=== PATIENT | female | born 1945 | race Caucasian/White ===

== ENCOUNTER 2019-02-05 23:20 | Emergency (ER) | payer OTHER, MEDICARE ==
[2019-02-06] MEDS ORDERED: HYDROCODONE/APAP 5/325 MG TAB ONE (00:10)
[2019-02-06] MEDS ORDERED: TETANUS & DIPHTHERIA TOX,ADULT 0.5 ML VIAL ONE (00:10)
--- NOTE | 2019-02-06 01:26 | ER ---
Nurse's Notes [facility] Name: Bhavani Dupont Age: 73 yrs Sex: Female : 1945 Arrival Date: 02/05/2019 Time: 23:24 Bed 20 Private MD: Diagnosis: Contusion of other part of head-left forehead;Contusion of left knee;Contusion of left lower leg-bautista;Abrasion of unspecified part of head;Abrasion of left hand;Abrasion of right hand Presentation: 02/05 23:30 Presenting complaint: Patient states: "was walking out of [employer] when I tripped cc3 on a curb and hit my head, both shins, and both hands." Noted patient to have abrasions to her left side of the forehead, right lower leg and abrasions to both hands. Patient complains of headache, neck pain, right leg and right knee pain. Care prior to arrival: None. Mechanism of Injury: Fall the curb. Trauma event details: Injury occurred in the [facility], Injury occurred: outside [employer] Injury occurred: February 05, 2019. 23:30 Acuity: IGOR 3 cc3 23:30 Method Of Arrival: Wheelchair cc3 23:30 Transition of care: patient was not received from another setting of care. Onset of cc3 symptoms was February 05, 2019. Risk Assessment: Do you want to hurt yourself or someone else? Patient reports no desire to harm self or others. Initial Sepsis Screen: Does the patient meet any 2 criteria? No. Patient's initial sepsis screen is negative. Does the patient have a suspected source of infection? No. Patient's initial sepsis screen is negative. Triage Assessment: 23:30 General: Appears in no apparent distress. uncomfortable, Behavior is calm, cooperative, cc3 appropriate for age. 23:30 Pain: Complains of pain in forehead, right leg. EENT: Ear canal clear on bilaterally cc3 Sclera/Cornea are clear in bilaterally Nares are clear Oral mucosa is moist. Throat is clear bilaterally with gag reflex present. Neuro: Level of Consciousness is awake, alert, obeys commands, Oriented to person, place, time, situation, Appropriate for age. Cardiovascular: Patient's skin is warm and dry. Respiratory: Airway is patent Respiratory effort is even, unlabored, Respiratory pattern is regular, symmetrical. GI: Abdomen is round non-distended. : No signs and/or symptoms were reported regarding the genitourinary system. Derm: abrasion and bruise to right bautista, abrasion to left side of forehead, and abrasion to both hands. Musculoskeletal: Circulation, motion, and sensation intact. Range of motion: intact in all extremities. Trauma Activation: Physician: ED Physician; Name: ; Notified At: ; Arrived At: Physician: General Surgeon; Name: ; Notified At: ; Arrived At: Physician: Radiology; Name: ; Notified At: ; Arrived At: Physician: Respiratory; Name: ; Notified At: ; Arrived At: Physician: Lab; Name: ; Notified At: ; Arrived At: 23:30 was not activated cc3 Historical: - Allergies: 23:30 Latex, Natural Rubber; cc3 23:30 Lidocaine; cc3 23:30 TETRACYCLINES; cc3 23:30 all fish; cc3 - PMHx: 23:30 Asthma; cc3 - PSHx: 23:30 left knee replacement; Tubal ligation; cc3 - Immunization history: Last tetanus immunization: unknown. - Social history:: Smoking status: Patient/guardian denies using tobacco, never smoked. - Ebola Screening: : No symptoms or risks identified at this time. - Social history: Denies using tobacco products. Screenin:30 Abuse screen: Denies threats or abuse. Denies injuries from another. Nutritional cc3 screening: No deficits noted. Tuberculosis screening: No symptoms or risk factors identified. Fall Risk Ambulatory Aid- None/Bed Rest/Nurse Assist (0 pts). Gait- Normal/Bed Rest/Wheelchair (0 pts) Mental Status- Oriented to own ability (0 pts). Primary Survey: 23:30 NO uncontrolled hemorrhage observed. A: The patient is alert. Airway: patent, No cc3 supplemental oxygen in use on arrival. Oral cavity: clear, gag reflex present, Trachea midline. Breathing/Chest: Respiratory pattern: regular, Respiratory effort: spontaneous, unlabored, Breath sounds: clear, Chest inspection: symmetrical rise and fall of the chest. Circulation: Heart tones present. Disability Alert. Exposure/Environment: All clothing and personal items were removed. Forensic evidence collection is not deemed to be indicated at this time. Items placed in patient belonging bag. There is no evidence of uncontrolled external bleeding. Obvious injury(ies) are noted at this time: abrasion to forehead, right lower leg, and both hands A warming method has been applied: A warm blanket has been provided to the patient. 02/06 00:00 Reassessment Airway Airway Patent Breathing/Chest Respiratory pattern Regular cc3 Respiratory effort Spontaneous Unlabored Breath sounds Clear Chest inspection Symmetrical Circulation Heart tones Present Disability Alert. Secondary Survey: 02/05 23:30 HEENT: Head Other abrasion to forehead Face Other abrasion to forehead Eyes: No injury cc3 or deformity noted. to bilateral eyes. Ears: clear bilaterally. Nose: clear to bilateral nares. Gastrointestinal: Abdomen is soft, flat. : No signs and/or symptoms were reported regarding the genitourinary system. Musculoskeletal: Circulation, motion, and sensation intact. Range of motion: intact in all extremities. Injury Description: fall and sustained injury to forehead, right lower leg and both hands. Assessment: 23:30 General: see triage assessment. cc3 02/06 00:29 Reassessment: Patient appears in no apparent distress at this time. Patient and/or cc3 family updated on plan of care and expected duration. Pain level reassessed. Patient is alert, oriented x 3, equal unlabored respirations, skin warm/dry/pink. Patient came back from CT scan department, awaiting result. 01:20 Reassessment: Patient appears in no apparent distress at this time. Patient and/or cc3 family updated on plan of care and expected duration. Pain level reassessed. Patient is alert, oriented x 3, equal unlabored respirations, skin warm/dry/pink. Noticed bruising now which is darnell in color and swelling around the patient's left eye, GIULIANA Araiza aware and said he'll discharge the patient home; waiting for his discharge papers and prescription. 02:00 Reassessment: Patient appears in no apparent distress at this time. Patient and/or cc3 family updated on plan of care and expected duration. Pain level reassessed. Patient is alert, oriented x 3, equal unlabored respirations, skin warm/dry/pink. Wound cleaning done on the patient's forehead abrasion. GIULIANA Araiza discharged the patient home with prescription given. No IV cannula in situ. Patient left ER vitally stable and ambulatory with her . Vital Signs: 02/05 23:30 BP 159 / 92; Pulse 72; Resp 20 S; Temp 98.4(O); Pulse Ox 100% on R/A; Weight 95.25 kg cc3 (R); Height 5 ft. 8 in. (172.72 cm) (R); Pain 10/10; 04 00:20 BP 161 / 74; Pulse 66; Resp 18 S; Pulse Ox 100% on R/A; cc3 01:45 BP 154 / 87; Pulse 68; Resp 17 S; Pulse Ox 100% on R/A; cc3 02/05 23:30 Body Mass Index 31.93 (95.25 kg, 172.72 cm) cc3 [place] Coma Score: 02/05 23:30 Eye Response: spontaneous(4). Verbal Response: oriented(5). Motor Response: obeys cc3 commands(6). Total: 15. Trauma Score (Adult): 23:30 Eye Response: spontaneous(1); Verbal Response: oriented(1); Motor Response: obeys cc3 commands(2); Systolic BP: > 89 mm Hg(4); Respiratory Rate: 10 to 29 per min(4); Roxy Score: 15; Trauma Score: 12 ED Course: 23:24 Patient arrived in ED. es 23:30 Arm band placed on right wrist. cc3 23:30 Patient has correct armband on for positive identification. Placed in gown. Bed in low cc3 position. Call light in reach. Side rails up X2. Pulse ox on. NIBP on. 23:30 Patient maintains SpO2 saturation greater than 95% on room air. cc3 23:30 Thermoregulation: warm blanket given to patient. cc3 23:34 Sandra Fleming is Primary Nurse. cc3 23:38 Jerrod Araiza NP is PHCP. pm1 23:38 Silvio Pagan MD is Attending Physician. pm1 23:55 Triage completed. cc3 02/06 00:04 Radiology exam delayed due to Currently in XRay. kw1 00:44 CT Facial Bones W/O Con In Process Unspecified. EDMS 00:46 CT Head C Spine In Process Unspecified. EDMS 01:36 Tib Fib Right XRAY In Process Unspecified. EDMS 01:36 Knee Right 3 View XRAY In Process Unspecified. EDMS 02:00 No provider procedures requiring assistance completed. Patient did not have IV access cc3 during this emergency room visit. Administered Medications: 00:00 Drug: [place]anger 5 mg-325 mg 1 tabs Route: PO; cc3 01:00 Follow up: Response: No adverse reaction; Pain is decreased cc3 00:01 Drug: Tetanus-Diphtheria Toxoid Adult 0.5 ml {Foreign Collection Clerk: [employer]. Exp: cc3 11/20/2020. Lot #: [id number]. } Route: IM; Site: right deltoid; 01:00 Follow up: Response: No adverse reaction cc3 Intake: 00:00 PO: 200ml (Water); Total: 200ml. cc3 Outcome: 01:25 Discharge ordered by MD. pm1 02:00 Discharged to home ambulatory, with family. cc3 02:00 Condition: stable 02:00 Discharge instructions given to patient, family, Instructed on discharge instructions, follow up and referral plans. medication usage, Demonstrated understanding of instructions, follow-up care, medications, Prescriptions given X 1. 02:00 Patient's length of stay was not longer than 2 hours. cc3 02:17 Patient left the ED. cc3 Signatures: Dispatcher [employer] EDCookie [place] Patrick, BUMBOATER BUMBOATER pm1 Skyla Sun kw1 Sandra Fleming cc3 Corrections: (The following items were deleted from the chart) 02:41 00:29 Reassessment: Patient appears in no apparent distress at this time. Patient cc3 and/or family updated on plan of care and expected duration. Pain level reassessed. Patient is alert, oriented x 3, equal unlabored respirations, skin warm/dry/pink. Patient came back from CT scan department. cc3 02:41 01:20 Reassessment: Patient appears in no apparent distress at this time. Patient cc3 and/or family updated on plan of care and expected duration. Pain level reassessed. Patient is alert, oriented x 3, equal unlabored respirations, skin warm/dry/pink. Noticed bruising now which is darnell in color around the patient's left eye, BUMBOATER Jose G aware. cc3 02:46 01:20 Reassessment: Patient appears in no apparent distress at this time. Patient cc3 and/or family updated on plan of care and expected duration. Pain level reassessed. Patient is alert, oriented x 3, equal unlabored respirations, skin warm/dry/pink. Noticed bruising now which is darnell in color and swelling around the patient's left eye, GIULIANA Araiza aware. cc3 02:46 02:00 Reassessment: Patient appears in no apparent distress at this time. Patient cc3 and/or family updated on plan of care and expected duration. Pain level reassessed. Patient is alert, oriented x 3, equal unlabored respirations, skin warm/dry/pink. Wound cleaning done on the patient's forehead abrasion. GIULIANA Araiza discharged the patient home with prescription given. No IV cannula in situ. Patient left ER vitally stable and ambulatory with his . cc3
--- NOTE | 2019-02-06 01:26 | EDPHYS ---
Physician Documentation [facility] Name: Bhavani Dupont Age: 73 yrs Sex: Female : 1945 Arrival Date: 02/05/2019 Time: 23:24 Bed 20 Private MD: ED Physician Silvio Pagan HPI: 02/06 01:18 This 73 yrs old Female presents to ER via Wheelchair with complaints of Fall pm1 Injury. 01:18 Details of fall: The patient fell from an upright position, while walking. Onset: The pm1 symptoms/episode began/occurred just prior to arrival. Associated injuries: The patient sustained injury to the head, abrasion, contusion, right knee, pain, right bautista, contusion, swelling, right hand and left hand, abrasion. The patient has not experienced similar symptoms in the past. The patient has not recently seen a physician. Patient was walking out of [employer] and she did not see the curb. Tripped on the curb and injured the left side of her forehead, has swelling to left eyebrow, pain to right knee and bautista, and abrasions to bilateral hands. 01:18 No LOC. No nausea. No vomiting. pm1 Historical: - Allergies: 02/05 23:30 Latex, Natural Rubber; cc3 23:30 Lidocaine; cc3 23:30 TETRACYCLINES; cc3 23:30 all fish; cc3 - PMHx: 23:30 Asthma; cc3 - PSHx: 23:30 left knee replacement; Tubal ligation; cc3 - Immunization history: Last tetanus immunization: unknown. - Social history:: Smoking status: Patient/guardian denies using tobacco, never smoked. - Ebola Screening: : No symptoms or risks identified at this time. - Social history: Denies using tobacco products. ROS: 02/06 01:19 Constitutional: Negative for fever, chills, and weight loss, Eyes: Negative for injury, pm1 pain, redness, and discharge, ENT: Negative for injury, pain, and discharge, Neck: Negative for injury, pain, and swelling, Cardiovascular: Negative for chest pain, palpitations, and edema, Respiratory: Negative for shortness of breath, cough, wheezing, and pleuritic chest pain, Abdomen/GI: Negative for abdominal pain, nausea, vomiting, diarrhea, and constipation, Back: Negative for injury and pain, : Negative for injury, bleeding, discharge, and swelling. MS/extremity: Positive for pain, of the right bautista and right knee. Skin: Positive for abrasion(s), of the right hand and left hand, forehead. Neuro: Positive for headache, Negative for altered mental status, dizziness, numbness, tingling, weakness. Exam: 01:19 Constitutional: This is a well developed, well nourished patient who is awake, alert, pm1 and in no acute distress. 01:19 Eyes: Pupils equal round and reactive to light, extra-ocular motions intact. Lids and lashes normal. Conjunctiva and sclera are non-icteric and not injected. Cornea within normal limits. Periorbital areas with no swelling, redness, or edema. ENT: Nares patent. No nasal discharge, no septal abnormalities noted. Tympanic membranes are normal and external auditory canals are clear. Oropharynx with no redness, swelling, or masses, exudates, or evidence of obstruction, uvula midline. Mucous membranes moist. Neck: Trachea midline, no thyromegaly or masses palpated, and no cervical lymphadenopathy. Supple, full range of motion without nuchal rigidity, or vertebral point tenderness. No Meningismus. Chest/axilla: Normal chest wall appearance and motion. Nontender with no deformity. No lesions are appreciated. Cardiovascular: Regular rate and rhythm with a normal S1 and S2. No gallops, murmurs, or rubs. Normal PMI, no JVD. No pulse deficits. Respiratory: Lungs have equal breath sounds bilaterally, clear to auscultation and percussion. No rales, rhonchi or wheezes noted. No increased work of breathing, no retractions or nasal flaring. Abdomen/GI: Soft, non-tender, with normal bowel sounds. No distension or tympany. No guarding or rebound. No evidence of tenderness throughout. Back: No spinal tenderness. No costovertebral tenderness. Full range of motion. 01:19 Head/face: Noted is no obvious of injury or deformity except abrasion(s), that are mild, of the forehead, contusion, that is superficial, of the forehead. 01:19 Musculoskeletal/extremity: Extremities: grossly normal except: noted in the right knee: tenderness, noted in the right bautista: contusion, Circulation is intact in all extremities. Sensation intact. 01:19 Skin: Appearance: normal except for affected area, injury, abrasion(s), very small abrasion noted, of the right hand and left hand. 01:19 Neuro: Orientation: is normal, Motor: is normal, moves all fours. Vital Signs: 02/05 23:30 BP 159 / 92; Pulse 72; Resp 20 S; Temp 98.4(O); Pulse Ox 100% on R/A; Weight 95.25 kg cc3 (R); Height 5 ft. 8 in. (172.72 cm) (R); Pain 10/10; 02/06 00:20 BP 161 / 74; Pulse 66; Resp 18 S; Pulse Ox 100% on R/A; cc3 01:45 BP 154 / 87; Pulse 68; Resp 17 S; Pulse Ox 100% on R/A; cc3 02/05 23:30 Body Mass Index 31.93 (95.25 kg, 172.72 cm) cc3 [place] Coma Score: 02/05 23:30 Eye Response: spontaneous(4). Verbal Response: oriented(5). Motor Response: obeys cc3 commands(6). Total: 15. Trauma Score (Adult): 23:30 Eye Response: spontaneous(1); Verbal Response: oriented(1); Motor Response: obeys cc3 commands(2); Systolic BP: > 89 mm Hg(4); Respiratory Rate: 10 to 29 per min(4); Firth Score: 15; Trauma Score: 12 MDM: 23:38 Patient medically screened. pm1 02/06 01:18 Data reviewed: vital signs. Data interpreted: Pulse oximetry: on room air is 100 %. pm1 Interpretation: normal. 01:24 Counseling: I had a detailed discussion with the patient and/or guardian regarding: the pm1 historical points, exam findings, and any diagnostic results supporting the discharge/admit diagnosis, radiology results, the need for outpatient follow up, to return to the emergency department if symptoms worsen or persist or if there are any questions or concerns that arise at home. 02/05 23:44 Order name: CT Head C Spine pm1 02/05 23:44 Order name: CT Facial Bones W/O Con pm1 02/05 23:44 Order name: Tib Fib Right XRAY pm1 02/05 23:44 Order name: Knee Right 3 View XRAY pm1 Administered Medications: 00:00 Drug: Kyburz 5 mg-325 mg 1 tabs Route: PO; cc3 01:00 Follow up: Response: No adverse reaction; Pain is decreased cc3 00:01 Drug: Tetanus-Diphtheria Toxoid Adult 0.5 ml {Medical Scientific Officer: [place]. Exp: cc3 11/20/2020. Lot #: [id number]. } Route: IM; Site: right deltoid; 01:00 Follow up: Response: No adverse reaction cc3 Disposition: 19:22 Co-signature as Attending Physician, Silvio Pagan MD. Disposition: 02/06/19 01:25 Discharged to Home. Impression: Contusion of other part of head - left forehead, Contusion of left knee, Contusion of left lower leg - bautista, Abrasion of unspecified part of head, Abrasion of left hand, Abrasion of right hand. - Condition is Stable. - Discharge Instructions: Abrasion, Contusion, Eye Contusion, Head Injury, Adult. - Prescriptions for Tylenol- Codeine #3 300-30 mg Oral Tablet - take 2 tablets by ORAL route every 6 hours As needed; 20 tablet. - Medication Reconciliation Form, Thank You Letter, Antibiotic Education, Prescription Opioid Use form. - Follow up: Emergency Department; When: As needed; Reason: Worsening of condition. Follow up: Private Physician; When: 2 - 3 days; Reason: Recheck today's complaints, Continuance of care, Re-evaluation by your physician. - Problem is new. - Symptoms have improved. Signatures: Dispatcher [employer] EDMT Jerrod Araiza, CONTACT LENS BLOCKER CONTACT LENS BLOCKER pm1 Silvio Pagan MD MD Sandra Fleming cc3 Corrections: (The following items were deleted from the chart) 02:17 01:25 02/06/2019 01:25 Discharged to Home. Impression: Contusion of other part of head cc3 - left forehead; Contusion of left knee; Contusion of left lower leg - bautista; Abrasion of unspecified part of head; Abrasion of left hand; Abrasion of right hand. Condition is Stable. Forms are Medication Reconciliation Form, Thank You Letter, Antibiotic Education, Prescription Opioid Use. Follow up: Emergency Department; When: As needed; Reason: Worsening of condition. Follow up: Private Physician; When: 2 - 3 days; Reason: Recheck today's complaints, Continuance of care, Re-evaluation by your physician. Problem is new. Symptoms have improved. pm1
--- NOTE | 2019-02-06 11:41 | RAD REPORT ---
EXAM DESCRIPTION: RAD - Tib Fib Right - 02/06/2019 1:36 am CLINICAL HISTORY: Pain;Swelling Fall, pain and swelling COMPARISON: None FINDINGS: Right knee and right tibia/ fibula - multiple projections are submitted Severe osteoarthritis is present involving the medial joint space with loss of joint space prominent osteophytes. No fracture or dislocation seen. No joint effusion.
--- NOTE | 2019-02-07 12:28 | RAD REPORT ---
EXAM DESCRIPTION: RAD - Knee Right 3 View - 02/06/2019 1:36 am CLINICAL HISTORY: Pain;Swelling Fall, pain and swelling COMPARISON: None FINDINGS: Right knee and right tibia/ fibula - multiple projections are submitted Severe osteoarthritis is present involving the medial joint space with loss of joint space prominent osteophytes. No fracture or dislocation seen. No joint effusion.
--- NOTE | 2019-02-07 12:46 | RAD REPORT ---
EXAM DESCRIPTION: CT Head Without Intravenous Contrast CT Maxillofacial Without Intravenous Contrast CT Cervical Spine Without Intravenous Contrast CLINICAL HISTORY: The patient is 73 years old and is Female; PAIN TECHNIQUE: Axial computed tomography images of the head/brain, face and cervical spine without intra venous contrast. Sagittal and coronal reformatted images were created and reviewed. This CT exam was performed using one or more of the following dose reduction techniques: automated exposure cont rol, adjustment of the mA and/or kV according to patient size, and/or use of iterative reconstruction technique. COMPARISON: None. FINDINGS: BRAIN: Mild cerebral volume loss and chronic small vessel ischemic changes. No hemorrhage . No significant white matter disease. No edema. VENTRICLES: Unremarkable. No ventriculomegaly. SKULL: No acute fracture. SINUSES: Unremarkable as visualized. No acute sinusitis. MASTOID AIR CELLS: Unremarkable as visualized. No mastoid effusion. ORBITS: Orbits demonstrate left preseptal and postseptal soft tissue swelling also present. The re trobulbar fat remains preserved. The globe is unremarkable. No proptosis. VERTEBRAE: Straightening of cervical lordosis. DISCS/SPINAL CANAL/NEURAL FORAMINA: Diffuse disc space narrowing with reactive endplate changes an d vacuum phenomenon from C3 to C5. Scattered disc osteophyte complexes and uncovertebral joint hypertrophy at the mid cervical spine. SOFT TISSUES: Mild soft tissue swelling involving the left paramedian frontal scalp. Mild thickeni ng of the retrodental soft tissues. THYROID: Visualized thyroid is unremarkable. LUNG APICES: Apical lung zones are clear. IMPRESSION: 1. No acute intracranial abnormality. Mild cerebral volume loss and chronic small vess el ischemic changes. 2. No acute cervical spine fracture. Moderate degenerative changes from C3 to C6. 3. Left preseptal and postseptal soft tissue swelling without retrobulbar abnormality. No facial fr acture. 4. Mild left paramedian frontal scalp swelling. Electronically signed by: Francesco Serna DO 02/06/2019 1:14 AM CDT Due to temporary technical issues with the PACS/Fluency reporting system, reports are being signed by the in house radiologist as a courtesy to ensure prompt reporting. The interpreting radiologist is f ully responsible for the content of the report.
== END 2019-02-06 02:17 | disposition home or self-care (01) ==
LOC: ER 23:20
DX: S00.83XA Contusion of other part of head, initial encounter (principal); S80.02XA Contusion of left knee, initial encounter; S80.12XA Contusion of left lower leg, initial encounter; S00.81XA Abrasion of other part of head, initial encounter; S60.512A Abrasion of left hand, initial encounter; S60.511A Abrasion of right hand, initial encounter; W01.0XXA Fall on same level from slipping, tripping and stumbling without subsequent striking against object, initial encounter; Y93.01 Activity, walking, marching and hiking; Y92.480 Sidewalk as the place of occurrence of the external cause; J45.909 Unspecified asthma, uncomplicated; Z88.8 Allergy status to other drugs, medicaments and biological substances; Z88.1 Allergy status to other antibiotic agents; Z91.040 Latex allergy status; Z91.013 Allergy to seafood
CPT/HCPCS: 70450; 70486; 72125; 76377; 90714; 99284

== ENCOUNTER 2020-06-20 15:19 | Inpatient (IN) | payer OTHER, MEDICARE ==
--- OUTSIDE RECORDS SUMMARY | 2020-06-20 15:54 | XMS REPORT | Continuity of Care Document ---
:1945 Author Organization [facility] t Address [address] [place] [address] Care Team Providers Name Role Phone Unavailable Unavailable Unavailable Payers Payer Name Policy Type Policy Number Effective Date Expiration Date S ource Problems This patient has no known problems. Allergies, Adverse Reactions, Alerts Allergy Allergy Status Severity Reaction(s) Onset Inactive Treating Comm ents Source Name Type Date Date Clinician Fish FA Active SV 2020-0 [facility]24 [place] [facility] lidocain DA Active SV 2020[facility]0 [facility] e [facility] tetracyc DA Active SV 2020-0 [facility] line 05-24 [place] 00[facility] corn FA Active SV 2020-0 [facility] 05-24 [facility] latex DA Active SV 2020-0 [facility] 7 [place] 00:[facility]: [facility] nut - FA Active U 2020-0 [facility] unspecif 05-24 [place] [facility] 00:[facility] Fish FA Active SV 2020-0 [facility] [place] lidocain DA Active SV 2020-0 [facility] e [facility] [place] tetracyc DA Active SV 2020-0 [facility] line [facility] [place] corn FA Active SV 2020-0 [facility] 6[facility] [place] latex DA Active SV 2019-0 [facility] 6[facility] [place] Medications This patient has no known medications. Procedures This patient has no known procedures. Results Test Description Test Time Test Comments Results Result Comments Source BASIC METABOLIC PANEL 2020-05-25 06:38:00 Test Item Value Reference Range Interpretation Comme nts SODIUM (test code = NA) 138 mmol/L 136-145 N POTASSIUM (test code = K) 4.1 mmol/L 3.5-5.1 N CHLORIDE (test code = CL) 103.0 mmol/L 98-107 N CARBON DIOXIDE (test code = 24.0 mmol/L 21-32 N CO2) GLUCOSE (test code = GLU) 177 mg/dL 70-110 H BLOOD UREA NITROGEN (test code 15 mg/dL 7-18 N = BUN) GLOMERULAR FILTRATION RATE 42.4 >60 U nit of measure: (test code = GFR) mL/min/1.7 3 [id number] Range:Healthy A dults >90 mL/min/1.73 m2 For Chronic Kidney Disease: Stage II Mi ld Decrease in GFR 60-9 0 Stage III Moderate Decrease in GFR 30-59 Stage IV Severe Decrease in GFR 15-29 Stage V Kidney Failure <15 CREATININE (test code = CREAT) 1.24 mg/dL 0.55-1.30 N CALCIUM (test code = CA) 10.0 mg/dL 8.2-10.1 N HGB [id number] 05:58:00 Test Item Value Reference Range Interpretation Comments HEMOGLOBIN (test code = HGB) 10.5 g/dL 12-16 L HEMATOCRIT (test code = HCT) 32.3 % 37-47 L COVID 19 Asymptomatic IH [id number] 21:16:00 Test Item Value Reference Range Interpretation Comments COVID 19 Asymptomatic IH AG (test NEGATIVE code = COVNONPUIAG) CBC W/AUTO [id number] 11:42:00 Test Item Value Reference Range Interpretation Comments WHITE BLOOD CELL (test code = WBC) 7.0 K/mm3 5.8-11.0 N RED BLOOD CELL (test code = RBC) 3.50 M/mm3 4.2-5.4 L HEMOGLOBIN (test code = HGB) 11.4 g/dL 12-16 L HEMATOCRIT (test code = HCT) 34.2 % 37-47 L MEAN CELL VOLUME (test code = MCV) 98 fL 80-98 N MEAN CELL HGB (test code = MCH) 32.6 pg 27-34 N MEAN CELL HGB CONCENTRATION (test 33.3 g/dL 30.8-34.1 N code = MCHC) RED CELL DISTRIBUTION WIDTH (test 13.7 % 11-16 N code = RDW) PLT (test code = PLT) 215 K/mm3 130-400 N MEAN PLATELET VOLUME (test code = 10.8 fL 8.9-12.1 N MPV) NEUTROPHIL % (test code = NT%) 60.1 % 45-70 N LYMPHOCYTE % (test code = LY%) 25.2 % 20-40 N MONOCYTE % (test code = MO%) 9.9 % 3-10 N EOSINOPHIL % (test code = EO%) 3.1 % 1-5 N BASOPHIL % (test code = BA%) 0.7 % 0.0-1.1 N NEUTROPHIL # (test code = NT#) 4.20 K/mm3 2.00-7.50 N LYMPHOCYTE # (test code = LY#) 1.76 K/mm3 1.50-4.00 N MONOCYTE # (test code = MO#) 0.69 K/mm3 0.2-0.8 N EOSINOPHIL # (test code = EO#) 0.22 K/mm3 0.04-0.4 N BASOPHIL # (test code = BA#) 0.05 K/mm3 0.02-0.10 N MANUAL DIFF REQUIRED (test code = NO MANUAL DIFF MDIFF) NUCLEATED RED BLOOD CELL (test 0 % 0-0 N code = NRBC) PROTHROMBIN [id number] 11:35:00 Test Item Value Reference Range Interpretation Comments PROTHROMBIN TIME 11.3 secs 10.1-12.5 N PATIENT (test code = PTP) INTERNATIONAL NORMAL 1.01 <2.0 RECOMME NDED THERAPEUTIC RATIO (test code = RANGE FOR ORAL INR) ANTICOAGULANTTR EATMENT: CONDI TION INRProphylaxis of venous thrombos is in 2.0 - 3.0 high-risk medic al or surgical patientsTreatme nt of venous thrombos is 2.0 - 3.0Prevention o f embolism 2.0 - 3.0Prevention o f recurrent embol ism, or 3.0 - 4. 5 patients with mechanical pros thetic intravascular v curry IS PATIENT ON ANTICOAGULANTS ? NHas Lab been notified if Patient is on Heparin Drip? NOIf Yes, orderCBC, OCCULT BLOOD, PT every other day NTHROMBOPLASTIN TIME [id number] 11:35:00 Test Item Value Reference Range Interpretation Comments PTT ACTIVATED (test code = APTT) 34.1 secs 24.9-37.0 N IS PATIENT ON ANTICOAGULANTS ? NHas Lab been notified if Patient is on Heparin Drip? NOIf Yes, orderCBC, OCCULT BLOOD, PT every other day NBASIC METABOLIC [id number] 11:35:00 Test Item Value Reference Range Interpretation Comments SODIUM (test code = 139 mmol/L 136-145 N NA) POTASSIUM (test code = 4.7 mmol/L 3.5-5.1 N K) CHLORIDE (test code = 103.0 mmol/L 98-107 N CL) CARBON DIOXIDE (test 27.3 mmol/L 21-32 N code = CO2) GLUCOSE (test code = 98 mg/dL 70-110 N GLU) BLOOD UREA NITROGEN 15 mg/dL 7-18 N (test code = BUN) GLOMERULAR FILTRATION 66.5 >60 Unit o f measure: RATE (test code = GFR) mL/mi n/1.73 [id number] Range:Healthy Adults >90 mL/min/1.73 m2 For Chronic Kidney Disease: St age II Mild Decrease in GFR 60-90 St age III Moderate Decrease in GFR 30-59 Stage IV Severe Decre ase in GFR 15- 29 Stage V Kidney Failure <15 CREATININE (test code 0.84 mg/dL 0.55-1.30 N = CREAT) CALCIUM (test code = 9.9 mg/dL 8.2-10.1 N CA) - MRI C-SPINE W/O [id number] 10:52:00 Patient Name: BIBI BUSTAMANTE Unit No: [id number] EXAMS: CPT CODE: [id number] MRI C-SPINE W/O CONT [id number] MRI OF THE CERVICAL SPINE: DIAGNOSIS: 1. At C2-3, mild disc degeneration. No central canal stenosis. Marked left foraminal stenosis. Moderateleft facet arthropathy. 2. At C3-4, marked disc degeneration. There is a 1 cm left posterior lateral and left paracentral disc osteophyte complex which impinges the cord and severely and chronically impinges the left C5 nerve root in the lateral gutter. There is marked left foraminal stenosis with chronic impingement the left C4 nerve root. Moderate right foraminal stenosis. Marked central canal stenosis AP diameter 9 mm. 3. At C4-5, marked disc degeneration. 3 mm spondylitic ridging impinges the cord. Marked central canal stenosis AP diameter of 9 mm. Marked bilateral foraminal stenosis. Mild to moderate bilateral facet arthropathy. 4. At C5-6,moderate to marked disc degeneration. 5 mm posterior central subligamentous disc herniation impinges the cord. Marked central canal stenosis AP diameter 10 mm. Moderate to marked bilateral foraminal stenosis. 5. At C6-7, marked disc degeneration. 3 mm broad-based disc protrusion flattens the ventral thecal sac. Moderate to marked central canal stenosis. Moderate to marked left foraminal moderate right foraminal stenosis. Mild facet arthropathy. 6. At C7-T1, mild disc degeneration. Grade 1 spondylolisthesis of C7 on T1. No central canal or foraminal stenosis. COMMENT: COMPARISON: No prior exams available. Sagittal T1, T2 and STIR and axial T2 and gradient-echo sequences are obtained of the cervical spine. Cervical vertebrae are within normal limits in signal. The findings are as above. at 1052 Reported and signed by: Gabriela Thompson MD CC: Fede Bahena MD Technologist: Baylee ParrTKelly(R) Transcribed D/ (1052) [facility] BIBI BUST[facility]ANTE [address] PHYS: Fede Bustamante : [birth year]AGE: 74 SEX: F [place], [place] [address] LOC: Y.MRI PHONE #: [phone] EXAM DATE: 04/18/2020 STATUS: REG CLI FAX #: [phone] RAD #: D/C DT PAGE 1 Signed Report Patient Name: BIBI BUSTAMANTE Unit No: [id number] EXAMS: CPT CODE: [id number] MRI C-SPINE W/O CONT [id number] <Continued> Orig Print D/T: S: 04/18/2020 (1055) [place] [facility] NAME: BIBI BUSTAMANTE [address] PHYS: Krishna Bustamante : 1945 AGE: 74 SEX: F [id number] LOC: Y.MRI PHONE #: [phone] EXAM DATE: 04/18/2020 STATUS: REG CLI FAX #: [phone] RAD #: D/C DT PAGE 2 Signed Report
[2020-06-20] MEDS ORDERED: ENOXAPARIN 80 MG/0.8 ML SQ ONE (15:59)
[2020-06-20] MEDS ORDERED: METOPROLOL TARTRATE 5 MG/5 ML INJ IV ONE (15:59)
[2020-06-20] MEDS ORDERED: NA CHLORIDE 0.9% 1,000 ML ONE ×2 (15:59→18:14)
[2020-06-20] MEDS ORDERED: METOPROLOL TAR 50 MG TAB ONE (16:12)
--- NOTE | 2020-06-20 16:19 | RAD REPORT ---
EXAM DESCRIPTION: RAD - Chest Single View - 06/20/2020 4:12 pm CLINICAL HISTORY: DYSPNEA Chest pain. COMPARISON: CHEST PA AND LAT 2 VIEW dated 03/09/2012 FINDINGS: Portable technique limits examination quality. The lungs are mildly emphysematous but grossly clear. The heart is normal in size. No displaced fract ures.Cervical hardware plate is noted. IMPRESSION: No acute intrathoracic process suspected.
[2020-06-20 16:24] LABS: Absolute Lymphocytes (CBC) 1.1 K/uL (0.7-4.9); Basophils % 0.9 % (0-1.3); Hematocrit 31.8 % (36.0-45.0); MPV 10.1 fL (7.6-11.3); RBC Red Blood Cell Count 3.43 M/uL (3.86-4.86)
[2020-06-20 16:29] LABS: Protime INR 1.04
[2020-06-20 17:08] LABS: Bilirubin Direct 0.1 mg/dL (0-0.2); Bilirubin Total 0.7 mg/dL (0.2-1.0); Potassium 2.8 mmol/L (3.5-5.1); Protein, Total 11.8 g/dL (6.4-8.2); Troponin (Emerg Dept Use Only) 0.15 ng/mL (0.0-0.045)
--- NOTE | 2020-06-20 18:01 | ER ---
Nurse's Notes [facility] Name: Bhavani Dupont Age: 74 yrs Sex: Female : 1945 Arrival Date: 06/20/2020 Time: 15:22 Bed 6 Private MD: Diagnosis: Atrial fibrillation and flutter;Dehydration;Acute kidney failure;Hypokalemia Presentation: 06/20 15:29 Chief complaint: Patient states: Palpitations for 1 day. Saw Addie Mehta today HR 140. ll1 Noticed SOB with exertion. Cannot eat well since her cervical neck surgery 2 weeks ago. Coronavirus screen: Client denies travel out of the [place] in the last 14 days. At this time, the client does not indicate any symptoms associated with coronavirus-19. The client reports previous COVID testing was negative. Ebola Screen: Patient denies travel to an Ebola-affected area in the 21 days before illness onset. Initial Sepsis Screen: Does the patient meet any 2 criteria? HR > 90 bpm. Risk Assessment: Do you want to hurt yourself or someone else? Patient reports no desire to harm self or others. Onset of symptoms was June 20, 2020. 15:29 Method Of Arrival: Wheelchair ll1 15:29 Acuity: IGOR 2 ll1 16:00 Initial Sepsis Screen: Does the patient have a suspected source of infection? No. sv Patient's initial sepsis screen is negative. Historical: - Allergies: 15:28 all fish; ll1 15:28 Latex, Natural Rubber; ll1 15:28 Lidocaine; ll1 15:28 TETRACYCLINES; ll1 - PMHx: 15:29 Asthma; ll1 - PSHx: 15:29 left knee replacement; Tubal ligation; 4 levels cervical neck surgery; ll1 - Immunization history:: Flu vaccine is up to date. - Social history:: Smoking status: Patient denies any tobacco usage or history of. Patient/guardian denies using alcohol, street drugs. Screenin:42 Abuse screen: Denies threats or abuse. Denies injuries from another. Nutritional hb screening: No deficits noted. Tuberculosis screening: No symptoms or risk factors identified. Fall Risk None identified. Assessment: 15:45 General: Appears in no apparent distress. Behavior is calm, cooperative. Pain: Denies hb pain. Neuro: Level of Consciousness is awake, alert, obeys commands, Oriented to person, place, time, situation. Cardiovascular: Heart tones S1 S2 present Capillary refill < 3 seconds Patient's skin is warm and dry. Rhythm is TACHY. Respiratory: Reports shortness of breath Airway is patent Respiratory effort is even, unlabored, Respiratory pattern is regular, symmetrical, Breath sounds are clear bilaterally. GI: No signs and/or symptoms were reported involving the gastrointestinal system. : No signs and/or symptoms were reported regarding the genitourinary system. EENT: No signs and/or symptoms were reported regarding the EENT system. Derm: Skin is pink, warm \T\ dry. Musculoskeletal: C COLLAR IN PLACE FROM RECENT C SPINE SX. 16:29 Reassessment: Patient appears in no apparent distress at this time. Patient and/or sv family updated on plan of care and expected duration. Pain level reassessed. Patient is alert, oriented x 3, equal unlabored respirations, skin warm/dry/pink. Patient states feeling better. Patient states symptoms have improved. 17:20 Reassessment: Patient appears in no apparent distress at this time. Patient and/or sv family updated on plan of care and expected duration. Pain level reassessed. Patient is alert, oriented x 3, equal unlabored respirations, skin warm/dry/pink. Patient states feeling better. Patient states symptoms have improved. 18:00 Reassessment: Patient appears in no apparent distress at this time. Patient and/or sv family updated on plan of care and expected duration. Pain level reassessed. Patient is alert, oriented x 3, equal unlabored respirations, skin warm/dry/pink. Pt ambulatory to the bathroom with no difficulty. Patient states feeling better. Patient states symptoms have improved. 18:19 Reassessment: Azar Marrero NP at bedside. sv 19:00 Reassessment: Patient appears in no apparent distress at this time. Patient and/or lp1 family updated on plan of care and expected duration. Pain level reassessed. Patient is alert, oriented x 3, equal unlabored respirations, skin warm/dry/pink. 20:00 Reassessment: Patient appears in no apparent distress at this time. Patient and/or lp1 family updated on plan of care and expected duration. Pain level reassessed. Patient is alert, oriented x 3, equal unlabored respirations, skin warm/dry/pink. 20:54 Reassessment: Patient and/or family updated on plan of care and expected duration. Pain jb4 level reassessed. Patient is alert, oriented x 3, equal unlabored respirations, skin warm/dry/pink. Report called to KHANG Plummer. PT transferred to new room Via wheelchair. IV site is clean dry and intact, converted to saline lock. Vital Signs: 15:29 BP 143 / 103; Pulse 150; Resp 18; Temp 98.6; Pulse Ox 100% ; Weight 79.38 kg; Height 5 ll1 ft. 6 in. (167.64 cm); Pain 0/10; 15:50 Pulse 147 MON; sv 15:57 BP 175 / 105; Pulse 101; Resp 16; Pulse Ox 99% on R/A; sv 16:02 BP 184 / 106; Pulse 104 MON; Resp 19; Pulse Ox 100% on R/A; sv 16:59 BP 173 / 89; Pulse 79 MON; Resp 12; Pulse Ox 100% on R/A; sv 17:39 BP 163 / 77; Pulse 87 MON; Resp 18; Pulse Ox 98% on R/A; sv 18:21 BP 182 / 95; Pulse 87 MON; Resp 20; Pulse Ox 100% on R/A; sv 19:09 BP 169 / 86; Pulse 87; Resp 12; Pulse Ox 99% ; sv 20:30 BP 177 / 78; Pulse 84; Resp 16; Pulse Ox 98% on R/A; lp1 15:29 Body Mass Index 28.25 (79.38 kg, 167.64 cm) ll1 15:50 A fib with Rapid ventricular response sv 16:02 Sinus tachycardia sv 16:59 Sinus Rhythm sv 17:39 Sinus Rhythm sv 18:21 Sinus Rhythm sv ED Course: 15:22 Patient arrived in ED. rg4 15:31 Triage completed. ll1 15:31 Arm band placed on Patient placed in an exam room, on a stretcher. ll1 15:36 Daren Chicas PA is PHCP. jr8 15:36 Romel Honeycutt MD is Attending Physician. jr8 15:42 Shayy Calle RN is Primary Nurse. hb 15:42 Patient has correct armband on for positive identification. Bed in low position. Call light in reach. Side rails up X 1. monitoring analyst on. Pulse ox on. NIBP on. 15:42 Inserted saline lock: 18 gauge in right antecubital area, using aseptic technique. hb Blood collected. 15:45 EKG done, by ED staff, reviewed by Daren GERMAN. sv 16:06 X-ray(s) taken. sv 16:13 XRAY Chest (1 view) In Process Unspecified. EDMS 17:59 Armando Salter MD is Hospitalizing Provider. jr8 19:08 Report given to Garrett QUIÑONEZ and Fabien QUIÑONEZ. sv 20:54 No provider procedures requiring assistance completed. Patient admitted, IV remains in jb4 place. Administered Medications: 15:50 Drug: Metoprolol 5 mg Route: IVP; Site: right antecubital; sv 15:55 Follow up: Response: No adverse reaction; Marked relief of symptoms sv 15:56 Drug: NS 0.9% 1000 ml Route: IV; Rate: 1000 ml; Site: right antecubital; sv 17:00 Follow up: Response: No adverse reaction; IV Status: Completed infusion; IV Intake: hb 1000ml 15:56 Drug: Lovenox 1 mg/kg Route: Sub-Q; Site: right lower abdomen; sv 16:13 Follow up: Response: No adverse reaction sv 16:10 Drug: Metoprolol TARTRATE (Lopressor) 50 mg Route: PO; sv 16:13 Follow up: Response: No adverse reaction sv 18:18 Drug: NS 0.9% 1000 ml Route: IV; Rate: 75 ml/hr; Site: right antecubital; sv 18:18 Drug: Potassium Chloride 20 mEq Route: IV; Rate: calculated rate; Site: right sv antecubital; Intake: 17:00 IV: 1000ml; Total: 1000ml. hb Outcome: 17:59 Decision to Hospitalize by Provider. jr8 20:54 Admitted to Med/surg accompanied by tech, via wheelchair, room 201, with chart, Report jb4 called to KHANG Plummer 20:54 Condition: stable 20:54 Discharge instructions given to patient, Instructed on the need for admit, Demonstrated understanding of instructions. 20:55 Patient left the ED. jb4 Signatures: Dispatcher [employer] EDUT Radha Disla RN RN Katey Mosley RN RN [email or web address] Daren Chicas PA PA jr8 Shayy Calle RN RN hb Garcia, Rubi rg4 David Prince, RN RN jb4 Leo Preciado, RN RN ll1
--- NOTE | 2020-06-20 18:01 | EDPHYS ---
Physician Documentation [facility] Name: Bhavani Dupont Age: 74 yrs Sex: Female : 1945 Arrival Date: 06/20/2020 Time: 15:22 Bed 6 Private MD: ED Physician Romel Honeycutt HPI: 06/20 16:58 This 74 yrs old Female presents to ER via Wheelchair with complaints of jr8 Palpitations. 16:58 The patient presents with a history of irregular heart beat, heart racing. Context: The jr8 symptoms occur at rest. Onset: The symptoms/episode began/occurred acutely, today. Duration: The patient or guardian reports a single episode, that is still ongoing. Modifying factors: The symptoms are aggravated by light activity. Associated signs and symptoms: Pertinent positives: SOB. Severity of symptoms: At their worst the symptoms were moderate in the emergency department the symptoms are unchanged. The patient has experienced similar episodes in the past, a few times. The patient has not recently seen a physician. Patient stated that she has not been eating well secondary to recent cervical spine surgery. Feels dehydrated. Since then has been having on/off episodes of racing heart rate. Today it happened again but has been constant and without relief . Historical: - Allergies: 15:28 all fish; ll1 15:28 Latex, Natural Rubber; ll1 15:28 Lidocaine; ll1 15:28 TETRACYCLINES; ll1 - PMHx: 15:29 Asthma; ll1 - PSHx: 15:29 left knee replacement; Tubal ligation; 4 levels cervical neck surgery; ll1 - Immunization history:: Flu vaccine is up to date. - Social history:: Smoking status: Patient denies any tobacco usage or history of. Patient/guardian denies using alcohol, street drugs. ROS: 16:58 Eyes: Negative for injury, pain, redness, and discharge, ENT: Negative for injury, jr8 pain, and discharge, Neck: Negative for injury, pain, and swelling, Abdomen/GI: Negative for abdominal pain, nausea, vomiting, diarrhea, and constipation, Back: Negative for injury and pain, MS/Extremity: Negative for injury and deformity, Skin: Negative for injury, rash, and discoloration, Neuro: Negative for headache, weakness, numbness, tingling, and seizure. 16:58 Cardiovascular: Positive for palpitations. 16:58 Respiratory: Positive for dyspnea on exertion, shortness of breath. Exam: 16:58 Eyes: Pupils equal round and reactive to light, extra-ocular motions intact. Lids and jr8 lashes normal. Conjunctiva and sclera are non-icteric and not injected. Cornea within normal limits. Periorbital areas with no swelling, redness, or edema. ENT: Nares patent. No nasal discharge, no septal abnormalities noted. Tympanic membranes are normal and external auditory canals are clear. Oropharynx with no redness, swelling, or masses, exudates, or evidence of obstruction, uvula midline. Mucous membranes moist. Neck: Trachea midline, no thyromegaly or masses palpated, and no cervical lymphadenopathy. Supple, full range of motion without nuchal rigidity, or vertebral point tenderness. No Meningismus. Respiratory: Lungs have equal breath sounds bilaterally, clear to auscultation and percussion. No rales, rhonchi or wheezes noted. No increased work of breathing, no retractions or nasal flaring. Abdomen/GI: Soft, non-tender, with normal bowel sounds. No distension or tympany. No guarding or rebound. No evidence of tenderness throughout. Back: No spinal tenderness. No costovertebral tenderness. Full range of motion. Skin: Warm, dry with normal turgor. Normal color with no rashes, no lesions, and no evidence of cellulitis. MS/ Extremity: Pulses equal, no cyanosis. Neurovascular intact. Full, normal range of motion. Neuro: Awake and alert, GCS 15, oriented to person, place, time, and situation. Cranial nerves II-XII grossly intact. Motor strength 5/5 in all extremities. Sensory grossly intact. Cerebellar exam normal. Normal gait. 16:58 Cardiovascular: Rate: tachycardic, Rhythm: irregularly irregular, Pulses: Pulses are 2+ in right radial artery and left radial artery. Heart sounds: normal, no S3 or S4, no murmur, no rub, no gallop, Edema: is not appreciated. 16:58 ECG was reviewed by the Attending Physician. Vital Signs: 15:29 BP 143 / 103; Pulse 150; Resp 18; Temp 98.6; Pulse Ox 100% ; Weight 79.38 kg; Height 5 ll1 ft. 6 in. (167.64 cm); Pain 0/10; 15:50 Pulse 147 MON; sv 15:57 BP 175 / 105; Pulse 101; Resp 16; Pulse Ox 99% on R/A; sv 16:02 BP 184 / 106; Pulse 104 MON; Resp 19; Pulse Ox 100% on R/A; sv 16:59 BP 173 / 89; Pulse 79 MON; Resp 12; Pulse Ox 100% on R/A; sv 17:39 BP 163 / 77; Pulse 87 MON; Resp 18; Pulse Ox 98% on R/A; sv 18:21 BP 182 / 95; Pulse 87 MON; Resp 20; Pulse Ox 100% on R/A; sv 19:09 BP 169 / 86; Pulse 87; Resp 12; Pulse Ox 99% ; sv 20:30 BP 177 / 78; Pulse 84; Resp 16; Pulse Ox 98% on R/A; lp1 15:29 Body Mass Index 28.25 (79.38 kg, 167.64 cm) ll1 15:50 A fib with Rapid ventricular response sv 16:02 Sinus tachycardia sv 16:59 Sinus Rhythm sv 17:39 Sinus Rhythm sv 18:21 Sinus Rhythm sv MDM: 15:36 Patient medically screened. jr8 17:59 Data reviewed: vital signs, nurses notes, lab test result(s), EKG, radiologic studies, jr8 plain films. Data interpreted: Pulse oximetry: on room air is 98 %. Interpretation: normal. Counseling: I had a detailed discussion with the patient and/or guardian regarding: the historical points, exam findings, and any diagnostic results supporting the discharge/admit diagnosis, lab results, radiology results, the need for further work-up and treatment in the hospital. 06/20 15:45 Order name: Basic Metabolic Panel; Complete Time: 17:54 [facility] 06/20 15:45 Order name: CBC with Diff; Complete Time: 16:42 [facility] 06/20 15:45 Order name: LFT's; Complete Time: 17:54 [facility] 06/20 15:45 Order name: Magnesium; Complete Time: 17:54 [facility] 06/20 15:45 Order name: NT PRO-BNP; Complete Time: 17:54 [facility] 06/20 15:45 Order name: PT-INR; Complete Time: 16:42 [facility] 06/20 15:45 Order name: Troponin (emerg Dept Use Only); Complete Time: 17:54 06/20 15:45 Order name: XRAY Chest (1 view); Complete Time: 16:42 06/20 15:45 Order name: CK; Complete Time: 17:54 06/20 17:53 Order name: Glucose, Ancillary Testing; Complete Time: 17:54 [facility] 06/20 15:45 Order name: EKG; Complete Time: 15:46 06/20 15:45 Order name: Cardiac monitoring; Complete Time: 15:46 06/20 15:45 Order name: EKG - Nurse/Tech; Complete Time: 15:46 06/20 15:45 Order name: IV Saline Lock; Complete Time: 15:46 06/20 15:45 Order name: Labs collected and sent; Complete Time: 15:46 06/20 15:45 Order name: O2 Per Protocol; Complete Time: 15:46 06/20 15:45 Order name: O2 Sat Monitoring; Complete Time: 15:46 jr EC:58 Rate is 150 beats/min. Rhythm is irregularly irregular, A fib. QRS [place] is Normal. QRS jr8 interval is normal. QT interval is normal. No Q waves. T waves are Normal. No ST changes noted. Clinical impression: Atrial Fibrillation. Interpreted by me. Reviewed by me. Administered Medications: 15:50 Drug: Metoprolol 5 mg Route: IVP; Site: right antecubital; sv 15:55 Follow up: Response: No adverse reaction; Marked relief of symptoms sv 15:56 Drug: NS 0.9% 1000 ml Route: IV; Rate: 1000 ml; Site: right antecubital; sv 17:00 Follow up: Response: No adverse reaction; IV Status: Completed infusion; IV Intake: hb 1000ml 15:56 Drug: Lovenox 1 mg/kg Route: Sub-Q; Site: right lower abdomen; sv 16:13 Follow up: Response: No adverse reaction sv 16:10 Drug: Metoprolol TARTRATE (Lopressor) 50 mg Route: PO; sv 16:13 Follow up: Response: No adverse reaction sv 18:18 Drug: NS 0.9% 1000 ml Route: IV; Rate: 75 ml/hr; Site: right antecubital; sv 18:18 Drug: Potassium Chloride 20 mEq Route: IV; Rate: calculated rate; Site: right sv antecubital; Disposition: 06/21 09:02 Co-signature as Attending Physician, Romel Honeycutt MD I agree with the assessment and kdr plan of care. Disposition: 06/20/20 17:59 Hospitalization ordered by Armando Salter for Inpatient Admission. Preliminary diagnosis are Atrial fibrillation and flutter, Dehydration, Acute kidney failure, Hypokalemia. - Bed requested for Telemetry/MedSurg (Inpatient). - Status is Inpatient Admission. jb4 - Condition is Fair. - Problem is new. - Symptoms have improved. Signatures: Dispatcher [employer] EDMS Radha Disla, RN RN Romel Honeycutt MD MD [facility] Daren Chicas PA PA jr8 Meredith Varner RN RN tl1 David Prince RN RN jb4 Leo Preciado RN RN ll1 Shayy Calle RN Corrections: (The following items were deleted from the chart) 06/20 20:18 17:59 Hospitalization Ordered by Armando Salter MD for Inpatient Admission. Preliminary tl1 diagnosis is Atrial fibrillation and flutter; Dehydration; Acute kidney failure; Hypokalemia. Bed requested for Telemetry/MedSurg (Inpatient). Status is Inpatient Admission. Condition is Fair. Problem is new. Symptoms have improved. jr8 20:55 20:18 06/20/2020 17:59 Hospitalization Ordered by Armando Salter MD for Inpatient jb4 Admission. Preliminary diagnosis is Atrial fibrillation and flutter; Dehydration; Acute kidney failure; Hypokalemia. Bed requested for Telemetry/MedSurg (Inpatient). Status is Inpatient Admission. Condition is Fair. Problem is new. Symptoms have improved. tl1
[2020-06-20] MEDS ORDERED: KCL 20 MEQ/100 mL IVPB 20 MEQ/100 ML BAG IV ONE (18:14)
--- NOTE | 2020-06-20 18:51 | P.HP ---
Certification for Inpatient Patient admitted to: Inpatient With expected LOS: >2 Midnights Patient will require the following post-hospital care: None Practitioner: I am a practitioner with admitting privileges, knowledge of patient current condition, hospital course, and medical plan of care. Services: Services provided to patient in accordance with Admission requirements found in Title 42 Section 412.3 of the Code of Federal Regulations <Azar Stinson - Last Filed: 06/20/20 18:40> Patient History Date of Service: 06/20/20 Primary Care Provider: Claudio Mehta Reason for admission: AFib RVR, ARF History of Present Illness: 74-year-old female with medical history of asthma presents the [facility] department for palpitations. Patient was found to have a heart rate in the 150s that was irregularly irregular and was interpreted as atrial fibrillation. Patient was given metoprolol IV which did control her rate. During her evaluation patient was found to have slightly elevated troponin and to be in acute renal failure with a creatinine of greater than 3, patient was also found to be hypokalemic and with hypercalcemia. Approximately 1 month ago patient had extensive surgical intervention of the C-spine. Patient reports since then she has had difficulty swallowing, only able to eat small amounts of pudding. Patient also reports that the palpitations started soon after the surgical procedure. ED provider wishes to admit patient for further evaluation and management. When I saw the patient in the emergency room she was awake, alert, oriented x4. Patient appeared to be in sinus rhythm with a rate of approximately 93. Patient was hypertensive with a systolic around 170. Patient be admitted for further evaluation and management - Past Medical/Surgical History Diabetic: No -: Asthma -: Four level cervical surgery -: Left knee replacement -: Tubal ligation Psychosocial/ Personal History: Patient lives at home with her . - Family History Father -: Heart disease Mother -: Cancer (Lung cancer) - Social History Smoking Status: Former smoker Alcohol use: No CD- Drugs: No Caffeine use: Yes Place of Residence: Home <Azar Stinson - Last Filed: 06/20/20 18:40> Date of Service: 06/21/20 <Bigg Salter - Last Filed: 06/21/20 15:03> Review of Systems 10-point ROS is otherwise unremarkable Cardiovascular: Palpitations <Azar Stinson - Last Filed: 06/20/20 18:40> Physical Examination - Physical Exam General: Alert, In no apparent distress, Oriented x3 HEENT: Atraumatic, PERRLA, Mucous membr. moist/pink, EOMI, Sclerae nonicteric Neck: Supple, 2+ carotid pulse no bruit Respiratory: Clear to auscultation bilaterally, Normal air movement Cardiovascular: Regular rate/rhythm, Normal S1 S2 Capillary refill: <2 Seconds Gastrointestinal: Normal bowel sounds, No tenderness Musculoskeletal: No tenderness Integumentary: No rashes Neurological: Normal gait, Normal speech, Normal strength at 5/5 x4 extr, Normal tone, Normal affect Lymphatics: No axilla or inguinal lymphadenopathy - Studies Laboratory Data (last 24 hrs) 06/20/20 15:43: PT 12.3, INR 1.04 06/20/20 15:43: WBC 8.4, Hgb 11.0 L, Hct 31.8 L, Plt Count 283 06/20/20 15:43: Sodium 131 L, Potassium 2.8 L*, BUN 25 H, Creatinine 3.38 H, Glucose 99, Magnesium 2.0, Total Bilirubin 0.7, AST 25, ALT 18, Alkaline Phosphatase 87 <Azar Stinson - Last Filed: 06/20/20 18:40> - Studies Laboratory Data (last 24 hrs) 06/20/20 15:43: PT 12.3, INR 1.04 06/20/20 15:43: WBC 8.4, Hgb 11.0 L, Hct 31.8 L, Plt Count 283 06/20/20 15:43: Sodium 131 L, Potassium 2.8 L*, BUN 25 H, Creatinine 3.38 H, Glucose 99, Magnesium 2.0, Total Bilirubin 0.7, AST 25, ALT 18, Alkaline Phosphatase 87 <Bigg Salter - Last Filed: 06/21/20 15:03> Assessment and Plan - Plan Assessment Paroxysmal new onset atrial fibrillation with rapid ventricular response and elevated troponin Acute renal failure Hypokalemia Hypercalcemia Dysphagia with weight loss Hypertension Asthma Plan Paroxysmal new onset atrial fibrillation with rapid ventricular response and elevated troponin: Patient currently in sinus rhythm with a rate of around 95. Cardiology follows been consulted on this case. Echocardiogram ordered. Will evaluate thyroid function. Will continue with Lovenox 1 milligram/kilogram once daily due to renal function. Patient denies any chest pain. Will remain on telemetry throughout this hospitalization. Appreciate further input from cardiology. Have also initiated beta-devante therapy. Acute renal failure: Likely prerenal in origin. Continue with gentle hydration. Renal ultrasound, uric acid, CPK levels ordered. Nephrology consult in place. Appreciate further input from nephrology. Hypokalemia: Potassium protocol in place. Will continue to monitor patient's electrolytes closely. Hypercalcemia: Corrected calcium for albumin is 12.9. Patient reports that she did use to take calcium supplementation but has not taken it for the last couple of months. Have ordered ionized calcium and PTH levels. Will continue to monitor patient's calcium. Dysphagia with weight loss: Speech therapy consult in place. Will also consult dietary. Hypertension: Continue with beta-devante therapy at this time. Will continue to monitor patient's blood pressure closely. Appreciate further input from cardiology. Asthma: Will provide medication on a as needed basis as this could exacerbate atrial fibrillation with rapid ventricular response. Discharge Plan: Home Plan to discharge in: 48 Hours - Advance Directives Does patient have a Living Will: No Does patient have a Durable POA for Healthcare: No - Code Status/Comfort Care Code Status Assessed: Yes (Patient is full code) Critical Care: No Time Spent Managing Pts Care (In Minutes): 55 <Azar Stinson - Last Filed: 06/20/20 18:40> - Problems (Diagnosis) (1) Atrial fibrillation with RVR Current Visit: Yes Status: Acute Physician Review Additional Text: The patient was seen and examined and findings were discusseded Agree with assessment and plan as documented by DEE Date of service is 06/20/2020 <Bigg Salter - Last Filed: 06/21/20 15:03>
[2020-06-20] MEDS ORDERED: NA CHLORIDE 0.9% 1,000 ML IV SCH (20:45)
[2020-06-20] MEDS ORDERED: ONDANSETRON 4 MG/2 ML VIAL IV PRN (20:45)
[2020-06-20] MEDS ORDERED: ACETAMINOPHEN 500 MG TAB PO PRN (20:45)
[2020-06-20] MEDS ORDERED: POTASSIUM CL SA 10 MEQ TAB PO ONE (22:03)
[2020-06-20] MEDS: NA CHLORIDE 0.9% 1,000 ML IV SCH (22:20)
[2020-06-20] MEDS: KCL 20 MEQ/100 mL IVPB 20 MEQ/100 ML BAG IV SCH (22:20)
[2020-06-20 22:33] VITALS: BMI 28.7
[2020-06-21] MEDS: KCL 20 MEQ/100 mL IVPB 20 MEQ/100 ML BAG IV SCH (01:28)
[2020-06-21] MEDS: METOPROLOL TAR 25 MG TAB PO SCH ×2 (05:39→17:01)
[2020-06-21 06:41] LABS: Absolute Lymphocytes (CBC) 1.3 K/uL (0.7-4.9); Basophils % 0.9 % (0-1.3); Hematocrit 23.3 % (36.0-45.0); Lymphocytes % 16.7 % (15.3-44.8); MPV 9.8 fL (7.6-11.3)
[2020-06-21 07:06] LABS: Magnesium 1.9 mg/dL (1.8-2.4); Potassium 3.6 mmol/L (3.5-5.1); Thyroid Stimulating Hormone 1.93 uIU/mL (0.360-3.740); Uric Acid 9.8 mg/dL (2.6-6.0)
--- NOTE | 2020-06-21 08:40 | EKG ---
Test Date: 2020-06-20 Test Time: 15:43:44 Compliance Consultant: JUAN F MEASUREMENT RESULTS: Intervals: Rate: 112 [place]: QRSD: 84 QT: 250 QTc: 341 [place]: P: AL: QRS: 7 T: 70 INTERPRETIVE STATEMENTS: Atrial fibrillation with rapid ventricular response Abnormal ECG No previous ECG available for comparison Electronically Signed On 06-21-20 08:38:20 CDT by Theron Mccain
--- NOTE | 2020-06-21 08:40 | EKG ---
Test Date: 2020-06-20 Test Time: 16:02:14 Cue Worker: JUAN F MEASUREMENT RESULTS: Intervals: Rate: 89 [place]: 150 QRSD: 94 QT: 326 QTc: 396 [place]: P: 50 [place]: 150 QRS: -2 T: 48 INTERPRETIVE STATEMENTS: Normal sinus rhythm Possible Left atrial enlargement Incomplete right bundle branch block Borderline ECG Compared to ECG 06/20/2020 15:43:44 Incomplete right bundle-branch block now present Atrial fibrillation no longer present Electronically Signed On 06-21-20 08:38:18 CDT by Theron Mccain
[2020-06-21] MEDS: NA CHLORIDE 0.9% 1,000 ML IV SCH ×2 (08:43→17:03)
[2020-06-21] MEDS ORDERED: ENOXAPARIN 100 MG/ML SYR SQ SCH (09:00)
[2020-06-21] MEDS ORDERED: HEPARIN 5000 UNIT/ML 1 ML VIAL SQ SCH (09:00)
--- NOTE | 2020-06-21 10:20 | RAD REPORT ---
EXAM DESCRIPTION: US - Renal Ultrasound-Complete - 06/21/2020 9:52 am CLINICAL HISTORY: Acute renal failure Flank pain, renal failure COMPARISON: No comparisons FINDINGS: Both kidneys are normal in size, shape and echotexture. The right kidney measures 11.0 x 5.4 x 4.3 cm. No hydronephrosis, focal mass or perinephric fluid. The left kidney measures 12.6 x 4.9 x 4.6 cm. No hydronephrosis, focal mass or perinephric fluid. The urinary bladder is incompletely distended without gross abnormality seen. IMPRESSION: Unremarkable renal sonogram.
--- NOTE | 2020-06-21 11:23 | P.PN ---
Subjective Date of Service: 06/21/20 Primary Care Provider: Claudio Mehta Chief Complaint: AFib RVR, ARF Subjective: No new changes, No C/O voiced Review of Systems 10-point ROS is otherwise unremarkable Physical Examination - Vital Signs Temperature: 98.2 F Blood Pressure: 169/77 Pulse: 78 Respirations: 18 Pulse Ox (%): 97 - Physical Exam General: Alert, In no apparent distress HEENT: Atraumatic, Normocephalic Neck: Supple Respiratory: Clear to auscultation bilaterally Cardiovascular: No edema, Regular rate/rhythm, Normal S1 S2 Capillary refill: <2 Seconds Gastrointestinal: Soft and benign, W/out hepatosplenomegaly Musculoskeletal: No clubbing, No swelling Integumentary: No rashes Neurological: Normal speech, Normal strength at 5/5 x4 extr Lymphatics: No axilla or inguinal lymphadenopathy - Studies Laboratory Data (last 24 hrs) 06/20/20 15:43: PT 12.3, INR 1.04 06/20/20 15:43: WBC 8.4, Hgb 11.0 L, Hct 31.8 L, Plt Count 283 06/20/20 15:43: Sodium 131 L, Potassium 2.8 L*, BUN 25 H, Creatinine 3.38 H, Glucose 99, Magnesium 2.0, Total Bilirubin 0.7, AST 25, ALT 18, Alkaline Phosphatase 87 Assessment & Plan - Problems (Diagnosis) (1) Atrial fibrillation with RVR Current Visit: Yes Status: Acute Physician Review Additional Text: Paroxysmal new onset atrial fibrillation with rapid ventricular response and elevated troponin Acute renal failure Hypokalemia Hypercalcemia Dysphagia with weight loss Hypertension Asthma Plan Paroxysmal new onset atrial fibrillation with rapid ventricular response and elevated troponin: converted to sinus rhythm Cardiology consulted Echo Cardiology recommended anticoagulation Hold off on Eliquis for now as the patient had a recent surgery Will start on aspirin The need Lovenox for now beta-devante therapy. Acute renal failure: Likely prerenal in origin. Continue with gentle hydration. Nephrology consult in place. Hypokalemia: Potassium protocol in place. Will continue to monitor patient's electrolytes closely. Hypercalcemia: Corrected calcium for albumin is 12.9. Will continue to monitor patient's calcium. Dysphagia with weight loss: Speech therapy consulted Hypertension: Continue with beta-devante therapy Will continue to monitor patient's blood pressure closely. Asthma: Will provide medication on a as needed basis as this could exacerbate atrial fibrillation with rapid ventricular response.
--- NOTE | 2020-06-21 16:22 | P.CNS ---
Date of Consult: 06/21/20 Reason for Consult: MARICRUZ/ CKD with hypercalcemia Requesting Physician: Bigg Salter Primary Care Provider: Socorro Mehta Chief Complaint: AFib RVR, ARF History of Present Illness: 74 yo WF chronic neck pain presented to the ER with palpitations complicated by electrolyte abnormalities and MARICRUZ. Reports cervical surgery about a month ago (05-24-20) complicated by dysphagia and a 15lb weight loss. Decreased activity. Denies calcium supplementation. No NSAIDs. No hx of CKD. No urinary difficulties. Feeling better today. 74-year-old female with medical history of asthma [facility]. Patient was found to have a heart rate in the 150s that was irregularly irregular and was interpreted as atrial fibrillation. Patient was given metoprolol IV which did control her rate. During her evaluation patient was found to have slightly elevated troponin and to be in acute renal failure with a creatinine of greater than 3, patient was also found to be hypokalemic and with hypercalcemia. Approximately 1 month ago patient had extensive surgical intervention of the C-spine. Patient reports since then she has had difficulty swallowing, only able to eat small amounts of pudding. Patient also reports that the palpitations started soon after the surgical procedure. 16:58 This 74 yrs old Female presents to ER via Wheelchair with complaints of jr8 Palpitations. 16:58 The patient presents with a history of irregular heart beat, heart racing. Context: The jr8 symptoms occur at rest. Onset: The symptoms/episode began/occurred acutely, today. Duration: The patient or guardian reports a single episode, that is still ongoing. Modifying factors: The symptoms are aggravated by light activity. Associated signs and symptoms: Pertinent positives: SOB. Severity of symptoms: At their worst the symptoms were moderate in the emergency department the symptoms are unchanged. The patient has experienced similar episodes in the past, a few times. The patient has not recently seen a physician. Patient stated that she has not been eating well secondary to recent cervical spine surgery. Feels dehydrated. Since then has been having on/off episodes of racing heart rate. Today it happened again but has been constant and without relief Allergies Fish Containing Products Allergy (Verified 06/20/20 20:44) Anaphylaxis Latex, Natural Rubber Allergy (Verified 06/20/20 20:44) Itching/Hives/Rash lidocaine Allergy (Verified 06/20/20 20:44) Itching/Hives/Rash nut - unspecified Allergy (Verified 06/21/20 02:36) Anaphylaxis tetracycline Allergy (Verified 06/20/20 20:44) Itching/Hives/Rash corn Adverse Reaction (Verified 06/21/20 02:36) Itching/Hives/Rash Home medications list reviewed: Yes Home Medications: Albuterol Sulfate [Albuterol Sulfate Hfa] 2 puff IH Q6HP PRN 06/20/20 - Past Medical/Surgical History Diabetic: No -: Asthma -: Four level cervical surgery -: Left knee replacement -: Tubal ligation Psychosocial/ Personal History: Patient lives at home with her . - Family History Father Medical History: Heart disease Mother Medical History: Cancer - Social History Smoking Status: Never smoker Alcohol use: No CD- Drugs: No Caffeine use: Yes Place of Residence: Home Review of Systems 10-point ROS is otherwise unremarkable General: Weakness, Malaise Neurological: Weakness Physical Examination Temp Pulse Resp BP Pulse Ox 98.2 F 78 18 169/77 H 97 06/21/20 15:02 06/21/20 15:02 06/21/20 15:02 06/21/20 15:02 06/21/20 15:02 General: In no apparent distress, Oriented x3, Cooperative HEENT: Atraumatic Neck: JVD not distended Respiratory: Clear to auscultation bilaterally, Normal air movement Cardiovascular: No edema, Regular rate/rhythm Gastrointestinal: Soft and benign, Non-distended Musculoskeletal: No clubbing, No contractures Integumentary: No rashes, No cyanosis Neurological: Normal speech Laboratory Data (last 24 hrs) 06/20/20 15:43: PT 12.3, INR 1.04 06/20/20 15:43: WBC 8.4, Hgb 11.0 L, Hct 31.8 L, Plt Count 283 06/20/20 15:43: Sodium 131 L, Potassium 2.8 L*, BUN 25 H, Creatinine 3.38 H, Glu cose 99, Magnesium 2.0, Total Bilirubin 0.7, AST 25, ALT 18, Alkaline Phosphatase 87 Imagings Data: EXAM DESCRIPTION: RAD - Chest Single View - 06/20/2020 4:12 pm CLINICAL HISTORY: DYSPNEA Chest pain. COMPARISON: CHEST PA AND LAT 2 VIEW dated 03/09/2012 FINDINGS: Portable technique limits examination quality. The lungs are mildly emphysematous but grossly clear. The heart is normal in size. No displaced fractures.Cervical hardware plate is noted. IMPRESSION: No acute intrathoracic process suspected. EXAM DESCRIPTION: US - Renal Ultrasound-Complete - 06/21/2020 9:52 am CLINICAL HISTORY: Acute renal failure Flank pain, renal failure COMPARISON: No comparisons FINDINGS: Both kidneys are normal in size, shape and echotexture. The right kidney measures 11.0 x 5.4 x 4.3 cm. No hydronephrosis, focal mass or perinephric fluid. The left kidney measures 12.6 x 4.9 x 4.6 cm. No hydronephrosis, focal mass or perinephric fluid. The urinary bladder is incompletely distended without gross abnormality seen. IMPRESSION: Unremarkable renal sonogram. Conclusions/Impression: A/ MARICRUZ may due to hypovolemia vs ATN. Hyponatremia Hypokalemia Hypercalcemia may be due to bone resorption. HTN Anemia in chronic illness P/ Continue current POC and Medications. Continue IVF. Replete potassium. No NSAIDs. AM Labs. Daily weight. Thank you kindly for the consultation.
[2020-06-21] MEDS: METOPROLOL TARTRATE 5 MG/5 ML INJ IV PRN ×2 (16:47→22:12)
[2020-06-21] MEDS ORDERED: POTASSIUM CL SA 10 MEQ TAB PO ONE (17:00)
[2020-06-22] MEDS: NA CHLORIDE 0.9% 1,000 ML IV SCH ×4 (02:40→23:12)
[2020-06-22 04:39] LABS: Magnesium 1.8 mg/dL (1.8-2.4); Potassium 3.6 mmol/L (3.5-5.1)
[2020-06-22 04:45] LABS: Absolute Lymphocytes (CBC) 1.3 K/uL (0.7-4.9); Basophils % 0.7 % (0-1.3); Lymphocytes % 18.8 % (15.3-44.8); MPV 10.4 fL (7.6-11.3); RBC Red Blood Cell Count 2.35 M/uL (3.86-4.86)
[2020-06-22] MEDS: METOPROLOL TARTRATE 5 MG/5 ML INJ IV PRN (05:45)
[2020-06-22] MEDS ORDERED: MAGNESIUM SULFATE 1 gm IVPB 1 GM/100 ML BAG IV ONE (06:00)
[2020-06-22] MEDS: METOPROLOL TAR 25 MG TAB PO SCH ×2 (06:50→17:04)
[2020-06-22] MEDS ORDERED: POTASSIUM 25 MEQ EFFERV TAB PO ONE (09:00)
--- NOTE | 2020-06-22 09:02 | ECHO ---
HEIGHT: 5 ft 6 in WEIGHT: 183 lb 11.2 oz DATE OF STUDY: 06/21/[address]: Azar Stinson NP 2-DIMENSIONAL: YES M.MODE: YES DOPPLER: YES COLOR FLOW: YES TDS: YES PORTABLE: NO DEFINITY: NO BUBBLE STUDY: NO DIAGNOSIS: NEW ONSET ATRIAL FIBRILLATION CARDIAC HISTORY: CATHERIZATION: NO SURGERY: NO PROSTHETIC VALVE: NO PACEMAKER: NO MEASUREMENTS (cm) DIASTOLIC (NORMALS) SYSTOLIC (NORMALS) IVSd 1.2 (0.6-1.2) LA Diam 2.8 (1.9-4.0) LVEF 80% LVIDd 4.3 (3.5-5.7) LVIDs 2.2 (2.0-3.5) %FS 48% LVPWd 1.3 (0.6-1.2) Ao Diam 2.8 (2.0-3.7) 2 DIMENSIONAL ASSESSMENT: RIGHT ATRIUM: NORMAL LEFT ATRIUM: NORMAL RIGHT VENTRICLE: NORMAL LEFT VENTRICLE: NORMAL TRICUSPID VALVE: MITRAL VALVE: PULMONIC VALVE: NORMAL AORTIC VALVE: NORMAL PERICARDIAL EFFUSION: NONE AORTIC ROOT: NORMAL LEFT VENTRICULAR WALL MOTION: NORMAL DOPPLER/COLOR FLOW: GRADE I DIASTOLIC DYSFUNCTION. COMMENTS: NORMAL LEFT VENTRICULAR EJECTION FRACTION 55-60% WITH NORMAL WALL MOTION. GRADE I DIASTOLIC DYSFUNCTION. MILD MITRAL AND TRICUSPID REGURGITATION. TECHNOLOGIST: Nupur BEAL
--- NOTE | 2020-06-22 09:54 | P.PN ---
Subjective Date of Service: 06/22/20 Primary Care Provider: Socorro Mehta Chief Complaint: AFib RVR, ARF Subjective: No new changes, Other (Hemoglobin dropped to 7.6 Denies any bleeding No fever no chills) Review of Systems 10-point ROS is otherwise unremarkable Physical Examination - Vital Signs Temperature: 97.9 F Blood Pressure: 177/83 Pulse: 80 Respirations: 16 Pulse Ox (%): 99 - Physical Exam General: Alert, In no apparent distress HEENT: Atraumatic, Normocephalic, Other (Collar Cervical spine) Neck: Supple Respiratory: Clear to auscultation bilaterally Cardiovascular: Regular rate/rhythm, Normal S1 S2 Capillary refill: <2 Seconds Gastrointestinal: Soft and benign, W/out hepatosplenomegaly Musculoskeletal: No clubbing, No swelling Neurological: Normal speech, Normal strength at 5/5 x4 extr Lymphatics: No axilla or inguinal lymphadenopathy Assessment & Plan - Problems (Diagnosis) (1) Atrial fibrillation with RVR Current Visit: Yes Status: Acute Physician Review Additional Text: Paroxysmal new onset atrial fibrillation with rapid ventricular response and elevated troponin Acute renal failure Hypokalemia Hypercalcemia Dysphagia with weight loss Hypertension Asthma Plan Paroxysmal new onset atrial fibrillation with rapid ventricular response and elevated troponin: converted to sinus rhythm Cardiology consult Appreciated Echo Cardiology recommended anticoagulation Hold off on Eliquis for now as the patient had a recent surgery Will start on aspirin on Lovenox for now beta-devante therapy. Acute renal failure: Likely prerenal in origin. Continue with gentle hydration. Nephrology consult in place. Renal parameters improving\ Hypokalemia: Potassium protocol in place. Will continue to monitor patient's electrolytes closely. Hypercalcemia: Corrected calcium for albumin is 12.9. Will continue to monitor patient's calcium. Dysphagia with weight loss: Speech therapy consulted Anemia Due to chronic blood loss versus dilutional Discuss with the patient No acute bleeding noted discuss about blood transfusion She wants to wait for the and see how she does Hypertension: Continue with beta-devante therapy Will continue to monitor patient's blood pressure closely. Asthma: Will provide medication on a as needed basis as this could exacerbate atrial fibrillation with rapid ventricular response. Time Spent Managing Pts Care (In Minutes): 43
[2020-06-22] MEDS: AMLODIPINE 5 MG TAB PO SCH (10:01)
[2020-06-22] MEDS: ASPIRIN EC 81 MG TAB PO SCH (12:21)
[2020-06-22] MEDS: PANTOPRAZOLE 40MG TABLET PO SCH (17:04)
--- NOTE | 2020-06-22 22:15 | P.PN ---
Date of Service: 06/22/20 Vital Signs Temp Pulse Resp BP Pulse Ox 98.7 F 82 16 179/82 H 98 06/22/20 20:00 06/22/20 20:00 06/22/20 20:00 06/22/20 20:00 06/22/20 20:00 Medications Acetaminophen (Tylenol -Extra Strength) 500 mg PO Q4HP PRN PRN Reason: TEMP > 100' F Stop: 07/20/20 20:46 Hydrocodone Bitart/Acetaminophen ([place] 5/325) 1 tab PO Q6H PRN PRN Reason: Pain scale 5-7 (Moderate) Stop: 07/20/20 20:46 Amlodipine Besylate (Norvasc) 5 mg PO DAILY [facility] Stop: 07/22/20 09:53 Last Admin: 06/22/20 10:01 Dose: 5 mg Documented by: Aspirin (Aspirin Ec) 81 mg PO DAILY [facility] Stop: 07/22/20 11:01 Last Admin: 06/22/20 12:21 Dose: 81 mg Documented by: Sodium Chloride (Ns 1000 Ml Ivbag) 1,000 mls @ 100 mls/hr IV .Q10H [facility] Stop: 07/20/20 22:05 Last Admin: 06/22/20 13:16 Dose: 1,000 mls Documented by: Metoprolol Tartrate (Lopressor) 25 mg PO BID 6AM 6PM [facility] Stop: 07/21/20 06:01 Last Admin: 06/22/20 17:04 Dose: 25 mg Documented by: Metoprolol Tartrate (Lopressor 1 Mg/Ml Inj) 5 mg IV Q6H PRN PRN Reason: Titrate to SBP (MUST DEFINE) Stop: 07/20/20 20:46 Last Admin: 06/22/20 05:45 Dose: 5 mg Documented by: Ondansetron HCl (Zofran) 4 mg IV Q6HP PRN PRN Reason: NAUSEA / VOMITING Stop: 07/20/20 20:46 Pantoprazole Sodium (Protonix Tab) 40 mg PO BIDAC [facility]; Protocol Stop: 07/22/20 16:31 Last Admin: 06/22/20 17:04 Dose: 40 mg Documented by: Sodium Chloride (Normal Saline Flush) 10 ml IV BID [facility] Stop: 07/20/20 21:01 Last Admin: 06/22/20 20:35 Dose: 10 ml Documented by: Assessment/ Plan: Nephrology Feeling better today. CPS stable without CP or SOB. No acute events overnight. Vitals, medications, blood work and imaging reviewed in the chart. General: In no apparent distress, Oriented x3, Cooperative HEENT: Atraumatic Neck: JVD not distended Respiratory: Clear to auscultation bilaterally, Normal air movement Cardiovascular: No edema, Regular rate/rhythm Gastrointestinal: Soft and benign, Non-distended Musculoskeletal: No clubbing, No contractures Integumentary: No rashes, No cyanosis Neurological: Normal speech Laboratory Data (last 24 hrs) 06/20/20 15:43: PT 12.3, INR 1.04 06/20/20 15:43: WBC 8.4, Hgb 11.0 L, Hct 31.8 L, Plt Count 283 06/20/20 15:43: Sodium 131 L, Potassium 2.8 L*, BUN 25 H, Creatinine 3.38 H, Glucose 99, Magnesium 2.0, Total Bilirubin 0.7, AST 25, ALT 18, Alkaline Phosphatase 87 Imagings Data: EXAM DESCRIPTION: RAD - Chest Single View - 06/20/2020 4:12 pm CLINICAL HISTORY: DYSPNEA Chest pain. COMPARISON: CHEST PA AND LAT 2 VIEW dated 03/09/2012 FINDINGS: Portable technique limits examination quality. The lungs are mildly emphysematous but grossly clear. The heart is normal in size. No displaced fractures.Cervical hardware plate is noted. IMPRESSION: No acute intrathoracic process suspected. EXAM DESCRIPTION: US - Renal Ultrasound-Complete - 06/21/2020 9:52 am CLINICAL HISTORY: Acute renal failure Flank pain, renal failure COMPARISON: No comparisons FINDINGS: Both kidneys are normal in size, shape and echotexture. The right kidney measures 11.0 x 5.4 x 4.3 cm. No hydronephrosis, focal mass or perinephric fluid. The left kidney measures 12.6 x 4.9 x 4.6 cm. No hydronephrosis, focal mass or perinephric fluid. The urinary bladder is incompletely distended without gross abnormality seen. IMPRESSION: Unremarkable renal sonogram. Conclusions/Impression: A/ MARICRUZ may due to hypovolemia vs ATN. Hyponatremia Hypokalemia Acidosis Hypercalcemia may be due to bone resorption. HTN Anemia in chronic illness P/ Continue current POC and Medications. Continue IVF. Replete potassium. Start oral bicarb. Consider IV pamidronate. No NSAIDs. AM Labs. Daily weight.
[2020-06-23] MEDS: METOPROLOL TARTRATE 5 MG/5 ML INJ IV PRN (05:17)
[2020-06-23] MEDS: METOPROLOL TAR 25 MG TAB PO SCH ×2 (05:18→17:07)
[2020-06-23 06:18] LABS: Absolute Lymphocytes (CBC) 1.2 K/uL (0.7-4.9); Basophils % 0.7 % (0-1.3); Hematocrit 24.4 % (36.0-45.0); Lymphocytes % 17.1 % (15.3-44.8); MPV 9.8 fL (7.6-11.3); RBC Red Blood Cell Count 2.59 M/uL (3.86-4.86)
[2020-06-23 06:34] LABS: Potassium 3.6 mmol/L (3.5-5.1)
[2020-06-23] MEDS ORDERED: PAMIDRONATE DISOD 30 MG VIAL IV ONE (08:00)
[2020-06-23] MEDS: ASPIRIN EC 81 MG TAB PO SCH (08:10)
[2020-06-23] MEDS: AMLODIPINE 5 MG TAB PO SCH (08:10)
[2020-06-23] MEDS: PANTOPRAZOLE 40MG TABLET PO SCH ×2 (08:10→16:35)
[2020-06-23] MEDS: NA CHLORIDE 0.9% 1,000 ML IV SCH (08:11)
[2020-06-23] MEDS ORDERED: POTASSIUM CL SA 10 MEQ TAB PO ONE (09:00)
[2020-06-23] MEDS ORDERED: CALCITONIN NASAL SPRAY 200 IU/DOSE NAS SCH (09:00)
[2020-06-23] MEDS ORDERED: PAMIDRONATE 60 MG in NA CHLORIDE 0.9% 500 ML IV ONE (09:00)
--- NOTE | 2020-06-23 09:06 | P.PN ---
Subjective Date of Service: 06/23/20 Primary Care Provider: Socorro Mehta Chief Complaint: AFib RVR, ARF Subjective: No new changes Review of Systems 10-point ROS is otherwise unremarkable Physical Examination - Vital Signs Temperature: 97.4 F Blood Pressure: 174/84 Pulse: 89 Respirations: 16 Pulse Ox (%): 98 - Physical Exam General: Alert, In no apparent distress HEENT: Atraumatic, Normocephalic Neck: Supple, Other (On cervical collar ) Respiratory: Clear to auscultation bilaterally Cardiovascular: Regular rate/rhythm Capillary refill: <2 Seconds Gastrointestinal: Soft and benign, W/out hepatosplenomegaly Musculoskeletal: No clubbing, No swelling Integumentary: No rashes Neurological: Normal speech, Normal strength at 5/5 x4 extr Lymphatics: No axilla or inguinal lymphadenopathy Assessment & Plan - Problems (Diagnosis) (1) Atrial fibrillation with RVR Current Visit: Yes Status: Acute Physician Review Additional Text: Paroxysmal new onset atrial fibrillation with rapid ventricular response and elevated troponin Acute renal failure Hypokalemia Hypercalcemia Dysphagia with weight loss Hypertension Asthma Plan Paroxysmal new onset atrial fibrillation with rapid ventricular response and elevated troponin: converted to sinus rhythm Cardiology consult Appreciated Echo Cardiology recommended anticoagulation Hold off on Eliquis for now as the patient had a recent surgery Will start on aspirin on Lovenox for now beta-devante therapy. Acute renal failure: Likely prerenal in origin. Continue with gentle hydration. Nephrology consult appreciated Renal parameters monitored Hypokalemia: Potassium protocol in place. Will continue to monitor patient's electrolytes closely. Hypercalcemia: Will continue to monitor patient's calcium. Start on calcitonin Will start on pamidronate if okay with nephrology Dysphagia with weight loss: Speech therapy consulted Anemia Due to chronic blood loss versus dilutional Discuss with the patient No acute bleeding noted discuss about blood transfusion She wants to wait for the and see how she does Hypertension: Continue with beta-devante therapy Will continue to monitor patient's blood pressure closely. Asthma: Will provide medication on a as needed basis Time Spent Managing Pts Care (In Minutes): 43
[2020-06-23] MEDS ORDERED: AMLODIPINE 5 MG TAB PO ONE (12:23)
--- NOTE | 2020-06-23 12:27 | P.PN ---
Date of Service: 06/23/20 doing well. alert. sitting up. tolerating po intake. denies pain. says she did not know of having significant renal failure in past. not sure how long she has had high blood pressure. has had cervical spine surgery. has not been very mobile. has been taking calcium supplements and vitamin d supplements. off the calcium and vitamin d now. got pamidronate iv. on ivf. tolerating po intake well. trace edea/skin is dry. vs stable. sbp in 170 range lungs cta cvs regular abd soft has neck brace in place ext with dry skin/trace edema meds reviewed. labs reviewed. kaley/? ckd/? htn/hypercalcemia: on ivf. balanced diet. getting pamidronated once today. increase amlodipine to 10mg once daily. off calcium and vitamin d at this time. will need f/u for assessment of ckd/residual renal status once acute issues improved/discussed with patient and she understands.
[2020-06-23] MEDS ORDERED: D50W 25 GM/50 ML SYRINGE/VIAL IV ONE (16:42)
[2020-06-23] MEDS: D5 0.9 NS 1,000 ML IV SCH (17:06)
[2020-06-23] MEDS: HYDROCODONE/APAP 5/325 MG TAB PO PRN (21:10)
--- NOTE | 2020-06-23 22:01 | CON ---
Date of Consultation: 06/21/2020 Reason For Consultation: Atrial fibrillation, new-onset. History Of Present Illness: Ms. Dupont is a 74-year-old woman, very healthy except for history of as thma, came in with palpitation, was found to have an atrial fibrillation. She was sent to the emerge ncy room by her nurse practitioner. The patient had came in complaining of palpitation. No chest pa in, shortness of breath, nausea, vomiting, diaphoresis, PND, orthopnea, pedal edema, or syncope. Den ied any fever or chills. Allergies: SHE IS ALLERGIC TO TETRACYCLINE, FISH, LIDOCAINE, AND RUBBER. Medications: At home include inhalers. Review of Systems: Negative. Social History: Negative. Family History: Noncontributory. Physical Examination: Vital Signs: She has already converted to sinus rhythm from atrial fibrillation. Initial rate was a bout 140. She had received metoprolol and digoxin. Her last blood pressure was 169/77. HEENT: Negative. Neck: Supple. No bruit. Chest: Clear. Cardiac: Regular rhythm and rate. No murmurs, gallops, or rubs. Abdomen: Benign. Extremities: No clubbing, cyanosis, or edema. Diagnostic Data: Creatinine of 3.12, potassium of 2.8, supplemented to 3.6. Troponin 0.13. BNP was 5455. Chest x-ray is negative. Initial EKG showed atrial fibrillation. Impression And Plan: 1.New-onset atrial fibrillation. The patient just recently had spinal surgery less than 2 days ago and I do not think she needs to be on anticoagulation. I think aspirin is plenty. We need to get a 2D echocardiogram. 2.Thyroid level is adequate. She needs to have nephrology followup for her new-onset renal failure. She needs to be on a beta-devante and aspirin. If her echocardiogram is very abnormal, we will re- discuss that issue later. She will need to have an outpatient followup in the next week or 2 and pos sibly a stress test, so we will have to wait for her kidneys to settle down. Her potassium needs to be supplemented. The patient overall has a very low CHADS score. NB/GONZALOL Voice ID: [id number] Report ID: [id number]
[2020-06-24] MEDS: D5 0.9 NS 1,000 ML IV SCH ×3 (02:54→14:44)
[2020-06-24] MEDS: METOPROLOL TAR 25 MG TAB PO SCH ×2 (05:24→17:03)
[2020-06-24 06:31] LABS: Potassium 3.6 mmol/L (3.5-5.1)
--- NOTE | 2020-06-24 07:02 | P.PN ---
Subjective Date of Service: 06/24/20 Primary Care Provider: Socorro Mehta Chief Complaint: AFib RVR, ARF Subjective: No new changes, Other (No acute events Pain controlled well Denies any chest pain or shortness of breath No palpitations) Review of Systems 10-point ROS is otherwise unremarkable Physical Examination - Vital Signs Temperature: 98.0 F Blood Pressure: 144/67 Pulse: 92 Respirations: 18 Pulse Ox (%): 97 - Physical Exam General: Alert, In no apparent distress HEENT: Atraumatic, Normocephalic Neck: Supple, Other (Cervical collar ) Respiratory: Clear to auscultation bilaterally, Normal air movement Cardiovascular: No edema, Regular rate/rhythm Capillary refill: <2 Seconds Gastrointestinal: Soft and benign, W/out hepatosplenomegaly Musculoskeletal: No clubbing Integumentary: No rashes Neurological: Normal speech, Normal strength at 5/5 x4 extr Lymphatics: No axilla or inguinal lymphadenopathy Assessment & Plan - Problems (Diagnosis) (1) Atrial fibrillation with RVR Current Visit: Yes Status: Acute Physician Review Additional Text: Paroxysmal new onset atrial fibrillation with rapid ventricular response and elevated troponin Acute renal failure Hypokalemia Hypercalcemia Dysphagia with weight loss Hypertension Asthma Plan Paroxysmal new onset atrial fibrillation with rapid ventricular response and elevated troponin: converted to sinus rhythm Cardiology consult Appreciated Echo Cardiology recommended anticoagulation Hold off on Eliquis for now as the patient had a recent surgery Will start on aspirin on Lovenox for now beta-devante therapy. Acute renal failure: Likely prerenal in origin. Continue with gentle hydration. Nephrology consult appreciated Renal parameters monitored Hypokalemia: Potassium protocol in place. Will continue to monitor patient's electrolytes closely. Hypercalcemia: Will continue to monitor patient's calcium. Continue with hydration on calcitonin Give a dose of pamidronate yesterday Dysphagia with weight loss: Speech therapy consulted protein supplements Anemia Due to chronic blood loss versus dilutional Discuss with the patient No acute bleeding noted Monitor hemoglobin and transfuse p.r.n. Hypertension: Continue with beta-devante therapy Will continue to monitor patient's blood pressure closely. Asthma: Will provide medication on a as needed basis Disposition : Monitor renal parameters Awaiting further recommendations from nephrology Possible Dc if cleared by Nephrology in a.m. Time Spent Managing Pts Care (In Minutes): 42
[2020-06-24] MEDS: AMLODIPINE 5 MG TAB PO SCH (08:51)
[2020-06-24] MEDS: PANTOPRAZOLE 40MG TABLET PO SCH ×2 (08:51→17:03)
[2020-06-24] MEDS: ASPIRIN EC 81 MG TAB PO SCH (08:51)
[2020-06-24] MEDS: HYDROCODONE/APAP 5/325 MG TAB PO PRN (22:26)
[2020-06-25] MEDS: D5 0.9 NS 1,000 ML IV SCH ×2 (02:04→09:00)
[2020-06-25] MEDS: METOPROLOL TAR 25 MG TAB PO SCH ×2 (05:55→17:04)
[2020-06-25 06:35] LABS: Magnesium 1.8 mg/dL (1.8-2.4); Potassium 3.4 mmol/L (3.5-5.1)
[2020-06-25] MEDS ORDERED: MAGNESIUM SULFATE 1 gm IVPB 1 GM/100 ML BAG IV ONE (09:00)
[2020-06-25] MEDS ORDERED: POTASSIUM 25 MEQ EFFERV TAB PO ONE (09:00)
[2020-06-25] MEDS: PANTOPRAZOLE 40MG TABLET PO SCH ×2 (09:35→17:03)
[2020-06-25] MEDS: AMLODIPINE 5 MG TAB PO SCH (09:36)
[2020-06-25] MEDS: ASPIRIN EC 81 MG TAB PO SCH (09:37)
[2020-06-25] MEDS ORDERED: POTASSIUM CL SA 10 MEQ TAB PO ONE ×3 (09:41→17:00)
--- NOTE | 2020-06-25 16:21 | P.PN ---
Date of Service: 06/25/20 Vital Signs Temp Pulse Resp BP Pulse Ox 97.0 F 93 H 17 137/65 98 06/25/20 12:00 06/25/20 12:00 06/25/20 12:00 06/25/20 12:00 06/25/20 12:00 Medications Acetaminophen (Tylenol -Extra Strength) 500 mg PO Q4HP PRN PRN Reason: TEMP > 100' F Stop: 07/20/20 20:46 Last Admin: 06/24/20 14:50 Dose: 500 mg Documented by: Hydrocodone Bitart/Acetaminophen (Siren 5/325) 1 tab PO Q6H PRN PRN Reason: Pain scale 5-7 (Moderate) Stop: 07/20/20 20:46 Last Admin: 06/24/20 22:26 Dose: 1 tab Documented by: Amlodipine Besylate (Norvasc) 10 mg PO DAILY [facility] Stop: 07/24/20 09:01 Aspirin (Aspirin Ec) 81 mg PO DAILY [facility] Stop: 07/22/20 11:01 Last Admin: 06/25/20 09:37 Dose: 81 mg Documented by: Enteral Nutritional Formula (Ensure Plant-Based Protein Vanilla) 330 ml PO BID [facility] Stop: 07/25/20 21:01 Furosemide (Lasix) 20 mg IV BIDL [facility] Stop: 07/25/20 17:01 L-Arginine/L-Glutamine/HMB (Suman) 1 pkt PO BID [facility] Stop: 07/25/20 21:01 Metoprolol Tartrate (Lopressor) 25 mg PO BID 6AM 6PM [facility] Stop: 07/21/20 06:01 Last Admin: 06/25/20 05:55 Dose: 25 mg Documented by: Metoprolol Tartrate (Lopressor 1 Mg/Ml Inj) 5 mg IV Q6H PRN PRN Reason: Titrate to SBP (MUST DEFINE) Stop: 07/20/20 20:46 Last Admin: 06/23/20 05:17 Dose: 5 mg Documented by: Ondansetron HCl (Zofran) 4 mg IV Q6HP PRN PRN Reason: NAUSEA / VOMITING Stop: 07/20/20 20:46 Pantoprazole Sodium (Protonix Tab) 40 mg PO BIDAC [facility]; Protocol Stop: 07/22/20 16:31 Last Admin: 06/25/20 09:35 Dose: 40 mg Documented by: Potassium Chloride (Klor-Con 10 Meq Tab) 20 meq PO 1X ONE Stop: 06/25/20 17:01 Sodium Chloride (Normal Saline Flush) 10 ml IV BID [facility] Stop: 07/20/20 21:01 Last Admin: 06/25/20 09:00 Dose: Not Given Documented by: Spironolactone (Aldactone) 50 mg PO BID [facility] Stop: 07/25/20 16:31 Assessment/ Plan: Nephrology Feeling better today with improved appetite. CPS stable without CP or SOB. No acute events overnight. Vitals, medications, blood work and imaging reviewed in the chart. General: In no apparent distress, Oriented x3, Cooperative HEENT: Atraumatic Neck: JVD not distended Respiratory: Clear to auscultation bilaterally, Normal air movement Cardiovascular: No edema, Regular rate/rhythm Gastrointestinal: Soft and benign, Non-distended Musculoskeletal: No clubbing, No contractures Integumentary: No rashes, No cyanosis Neurological: Normal speech Laboratory Data (last 24 hrs) 06/20/20 15:43: PT 12.3, INR 1.04 06/20/20 15:43: WBC 8.4, Hgb 11.0 L, Hct 31.8 L, Plt Count 283 06/20/20 15:43: Sodium 131 L, Potassium 2.8 L*, BUN 25 H, Creatinine 3.38 H, Glucose 99, Magnesium 2.0, Total Bilirubin 0.7, AST 25, ALT 18, Alkaline Phosphatase 87 Imagings Data: EXAM DESCRIPTION: RAD - Chest Single View - 06/20/2020 4:12 pm CLINICAL HISTORY: DYSPNEA Chest pain. COMPARISON: CHEST PA AND LAT 2 VIEW dated 03/09/2012 FINDINGS: Portable technique limits examination quality. The lungs are mildly emphysematous but grossly clear. The heart is normal in size. No displaced fractures.Cervical hardware plate is noted. IMPRESSION: No acute intrathoracic process suspected. EXAM DESCRIPTION: US - Renal Ultrasound-Complete - 06/21/2020 9:52 am CLINICAL HISTORY: Acute renal failure Flank pain, renal failure COMPARISON: No comparisons FINDINGS: Both kidneys are normal in size, shape and echotexture. The right kidney measures 11.0 x 5.4 x 4.3 cm. No hydronephrosis, focal mass or perinephric fluid. The left kidney measures 12.6 x 4.9 x 4.6 cm. No hydronephrosis, focal mass or perinephric fluid. The urinary bladder is incompletely distended without gross abnormality seen. IMPRESSION: Unremarkable renal sonogram. Conclusions/Impression: A/ MARICRUZ may due to hypovolemia vs ATN. Hyponatremia Hypokalemia Acidosis Hypercalcemia may be due to bone resorption. HTN Anemia in chronic illness P/ Continue current POC and Medications. Discontinue IVF. Start IV Lasix and spironolactone. Replete potassium prn. Discontinue oral bicarb. Start MagOx. Consider a repeat IV pamidronate prn. No NSAIDs. AM Labs. Daily weight.
[2020-06-25] MEDS: SPIRONOLACTONE 25 MG TABLET PO SCH ×2 (17:03→20:47)
[2020-06-25] MEDS: FUROSEMIDE 20 MG/ 2ML VIAL IV SCH (17:04)
--- NOTE | 2020-06-25 17:08 | P.PN ---
Subjective Date of Service: 06/25/20 Primary Care Provider: Socorro Mehta Chief Complaint: AFib RVR, ARF no acute events overnight. patient reports feeling better this AM, no chest pain / palpitations, no SOB, no abdominal pain. Reports voiding without issue Physical Examination - Vital Signs Temperature: 97.0 F Blood Pressure: 137/65 Pulse: 93 Respirations: 17 Pulse Ox (%): 98 - Physical Exam General: Alert, In no apparent distress HEENT: EOMI, Sclerae nonicteric Neck: Supple, No Thyromegaly Respiratory: Clear to auscultation bilaterally, Normal air movement Cardiovascular: Regular rate/rhythm, Normal S1 S2 Gastrointestinal: Normal bowel sounds, Soft and benign Musculoskeletal: No erythema, No tenderness Neurological: Normal speech, Normal affect Assessment & Plan Physician Review Additional Text: Paroxysmal new onset atrial fibrillation with rapid ventricular response and elevated troponin Acute renal failure Hypokalemia Hypercalcemia Dysphagia with weight loss Hypertension Asthma Plan Paroxysmal new onset atrial fibrillation with rapid ventricular response and elevated troponin: converted to sinus rhythm Cardiology consult Appreciated Cardiology recommended anticoagulation, hold off on Eliquis for now as the patient had a recent surgery started on aspirin & lovenox for now beta-devante therapy. Acute renal failure: Likely prerenal in origin vs ATN. Nephrology consult appreciated Renal parameters monitored Hypokalemia: Potassium protocol in place. Will continue to monitor patient's electrolytes closely. Hypercalcemia: Will continue to monitor patient's calcium, on calcitonin received a dose of pamidronate 2 days ago Dysphagia with weight loss: Speech therapy consulted, protein supplements Anemia Due to chronic blood loss versus dilution Discuss with the patient No acute bleeding noted Monitor hemoglobin and transfuse p.r.n. Hypertension: Continue with beta-devante therapy Will continue to monitor patient's blood pressure closely. Asthma: Will provide medication on a as needed basis Disposition : Awaiting further recommendations from nephrology Likely DC in AM Time Spent Managing Pts Care (In Minutes): 35
[2020-06-25] MEDS: JUVEN PACKET PO SCH (20:48)
[2020-06-25] MEDS: ENSURE PLANT-BASED PROTEIN VANILLA 330 ML CAN PO SCH (20:48)
[2020-06-25] MEDS ORDERED: MAGNESIUM OXIDE 400 MG TAB PO SCH (21:00)
[2020-06-26 01:05] LABS: Vitamin D 1,25-Dihydroxy Total 11 pg/mL (18-72); Vitamin D,1,25-OH2, D2 <8 pg/mL
[2020-06-26] MEDS: METOPROLOL TAR 25 MG TAB PO SCH ×2 (05:40→17:49)
[2020-06-26 06:17] LABS: Potassium 4.1 mmol/L (3.5-5.1)
[2020-06-26] MEDS: FUROSEMIDE 20 MG/ 2ML VIAL IV SCH ×3 (08:13→17:49)
[2020-06-26] MEDS: PANTOPRAZOLE 40MG TABLET PO SCH ×2 (08:13→17:49)
[2020-06-26] MEDS: ENSURE PLANT-BASED PROTEIN VANILLA 330 ML CAN PO SCH (08:13)
[2020-06-26] MEDS: SPIRONOLACTONE 25 MG TABLET PO SCH (08:13)
[2020-06-26] MEDS: JUVEN PACKET PO SCH (08:13)
[2020-06-26] MEDS: ASPIRIN EC 81 MG TAB PO SCH (08:13)
[2020-06-26] MEDS ORDERED: AMLODIPINE 10 MG TAB PO SCH (09:00)
[2020-06-26 09:03] VITALS: O2SAT 98
[2020-06-26 17:57] VITALS: BP 158/72; TEMP 98
--- NOTE | 2020-06-26 21:07 | P.DS ---
Admission Date: 06/20/20 Discharge Date: 06/27/20 Primary Care Provider: Socorro Mehta Disposition: ROUTINE DISCHARGE Discharge Condition: GOOD Reason for Admission: AFib RVR, ARF Consultations: Renal (Marisol); Cardiology (Adán) Procedures: 06/20 Renal U/S: IMPRESSION: Unremarkable renal sonogram. 06/21 TTE: NORMAL LEFT VENTRICULAR EJECTION FRACTION 55-60% WITH NORMAL WALL MOTION. GRADE I DIASTOLIC DYSFUNCTION. MILD MITRAL AND TRICUSPID REGURGITATION. Problem List new onset afib with RVR, paroxysmal; and elevated troponin acute renal failure hypokalemia hypercalcemia dysphagia with weight loss hyptertension asthma Brief History of Present Illness: 74 yo WF chronic neck pain presented to the ER with palpitations complicated by electrolyte abnormalities and MARICRUZ. Reported cervical surgery about a month ago (05-24-20) complicated by dysphagia and a 15lb weight loss. Decreased activity. Denids calcium supplementation. No NSAIDs. No hx of CKD. No urinary difficulties. Hospital Course: Paroxysmal Afib with RVR -found to have HR in 150s, given IV metoprolol which controlled her rate. -she was found to have elevated troponin and to be in acute renal failure with a creatinine >3 -TTE performed (noted above), she converted to normal sinus rhythm -Cardiology was consulted and felt likely provoked with recent spinal surgery and did not feel anticoagulation was warranted. Recommended daily aspirin. -Cardiology recommended patient to follow up in the next 1-2 weeks and possibly have an outpatient stress test once her kidney function normalized. -She was discharged home with metoprolol and aspirin Acute Renal failure -felt to be due to prerenal and possible an ATN component, patients labs were trended and improved with IVF -she had not seen a physician in a long time, so it was unclear what her [facility] kidney function was. Given her symptomatic improvement and improving Cr, she was discharged home to f/u with nephrology and repeat labs within 1 week -hypokalemia and hypercalcemia corrected during her hospitalization. Patient did receive 1 dose of pamidronate during her hospitalization Anemia Pt's hgb: 11 -> 8.6 after receiving IVF, felt to be acute on chronic, likely due to hemodilution. No acute bleeding was noted, and subsequent H/H were stable HTN she was noted to be hypertensive during her hospitalization and she was started on amlodipine Vital Signs/Physical Exam: Temp Pulse Resp BP Pulse Ox 98.0 F 89 18 158/72 H 99 06/26/20 16:00 06/26/20 16:00 06/26/20 16:00 06/26/20 16:00 06/26/20 16:00 General: Alert, In no apparent distress HEENT: Mucous membr. moist/pink Neck: JVD not distended Respiratory: Clear to auscultation bilaterally, Normal air movement Cardiovascular: No edema, Regular rate/rhythm, Normal S1 S2 Gastrointestinal: Normal bowel sounds, Soft and benign, Non-distended, No tenderness Musculoskeletal: No erythema, No tenderness Integumentary: No rashes, No breakdown Neurological: Normal speech, Normal affect Laboratory Data at Discharge: WBC 7.2 K/uL (4.3-10.9) 06/23/20 05:59 Hgb Cancelled 06/23/20 09:00 Hct Cancelled 06/23/20 09:00 Plt Count 200 K/uL (152-406) 06/23/20 05:59 PT 12.3 SECONDS (9.5-12.5) 06/20/20 15:43 INR 1.04 06/20/20 15:43 Sodium 139 mmol/L (136-145) 06/26/20 05:37 Potassium 4.1 mmol/L (3.5-5.1) 06/26/20 05:37 BUN 21 mg/dL (7-18) H 06/26/20 05:37 Creatinine 3.32 mg/dL (0.55-1.3) H 06/26/20 05:37 Glucose 77 mg/dL (74-106) 06/26/20 05:37 Uric Acid 9.8 mg/dL (2.6-6.0) H 06/21/20 06:23 Phosphorus 3.0 mg/dL (2.5-4.9) 06/21/20 06:23 Magnesium 2.0 mg/dL (1.8-2.4) 06/26/20 05:37 Total Bilirubin 0.7 mg/dL (0.2-1.0) 06/20/20 15:43 AST 25 U/L (15-37) 06/20/20 15:43 ALT 18 U/L (12-78) 06/20/20 15:43 Alkaline Phosphatase 87 U/L (45-117) 06/20/20 15:43 Troponin I 0.13 ng/mL (0.0-0.045) H 06/21/20 09:32 Triglycerides 131 mg/dL (<150) 06/21/20 06:23 Cholesterol 131 mg/dL (<200) 06/21/20 06:23 HDL Cholesterol 44 mg/dL (40-60) 06/21/20 06:23 Cholesterol/HDL Ratio 2.98 06/21/20 06:23 Home Medications: Albuterol Sulfate [Albuterol Sulfate Hfa] 2 puff IH Q6HP PRN 06/20/20 Amlodipine [Norvasc*] 10 mg PO DAILY 30 Days #30 tab 06/26/20 Aspirin [Aspirin EC 81 MG] 81 mg PO DAILY #30 tablet. 06/26/20 Metoprolol Tartrate [Lopressor*] 25 mg PO BID 30 Days #60 tab 06/26/20 Metoprolol Tartrate [Lopressor*] 25 mg PO BID 6AM 6PM 30 Days #60 tab 06/26/20 New Medications: Aspirin [Aspirin EC 81 MG] 81 mg PO DAILY #30 tablet. Metoprolol Tartrate [Lopressor*] 25 mg PO BID 30 Days #60 tab Amlodipine [Norvasc*] 10 mg PO DAILY 30 Days #30 tab Patient Discharge Instructions: follow up with PCP, Dr. Mccain (Cardiology), & Dr. Markham (Renal) within 1 week Diet: Renal Activity: Ad fredy Followup: Leif Damon DO [ACTIVE - CAN ADMIT] - Theron Mccain MD [ACTIVE - CAN ADMIT] - Time spent managing pt's care (in minutes): 45
--- NOTE | 2020-06-26 21:37 | P.PN ---
Date of Service: 06/26/20 Vital Signs Temp Pulse Resp BP Pulse Ox 98.0 F 89 18 158/72 H 99 06/26/20 16:00 06/26/20 16:00 06/26/20 16:00 06/26/20 16:00 06/26/20 16:00 Assessment/ Plan: Nephrology Feeling better today. Ready to go home. CPS stable without CP or SOB. No acute events overnight. Vitals, medications, blood work and imaging reviewed in the chart. General: In no apparent distress, Oriented x3, Cooperative HEENT: Atraumatic Neck: JVD not distended Respiratory: Clear to auscultation bilaterally, Normal air movement Cardiovascular: No edema, Regular rate/rhythm Gastrointestinal: Soft and benign, Non-distended Musculoskeletal: No clubbing, No contractures Integumentary: No rashes, No cyanosis Neurological: Normal speech Laboratory Data (last 24 hrs) 06/20/20 15:43: PT 12.3, INR 1.04 06/20/20 15:43: WBC 8.4, Hgb 11.0 L, Hct 31.8 L, Plt Count 283 06/20/20 15:43: Sodium 131 L, Potassium 2.8 L*, BUN 25 H, Creatinine 3.38 H, Glucose 99, Magnesium 2.0, Total Bilirubin 0.7, AST 25, ALT 18, Alkaline Phosphatase 87 Imagings Data: EXAM DESCRIPTION: RAD - Chest Single View - 06/20/2020 4:12 pm CLINICAL HISTORY: DYSPNEA Chest pain. COMPARISON: CHEST PA AND LAT 2 VIEW dated 03/09/2012 FINDINGS: Portable technique limits examination quality. The lungs are mildly emphysematous but grossly clear. The heart is normal in size. No displaced fractures.Cervical hardware plate is noted. IMPRESSION: No acute intrathoracic process suspected. EXAM DESCRIPTION: US - Renal Ultrasound-Complete - 06/21/2020 9:52 am CLINICAL HISTORY: Acute renal failure Flank pain, renal failure COMPARISON: No comparisons FINDINGS: Both kidneys are normal in size, shape and echotexture. The right kidney measures 11.0 x 5.4 x 4.3 cm. No hydronephrosis, focal mass or perinephric fluid. The left kidney measures 12.6 x 4.9 x 4.6 cm. No hydronephrosis, focal mass or perinephric fluid. The urinary bladder is incompletely distended without gross abnormality seen. IMPRESSION: Unremarkable renal sonogram. Conclusions/Impression: A/ MARICRUZ may due to hypovolemia vs ATN. Hyponatremia Hypokalemia Acidosis Hypercalcemia may be due to bone resorption. HTN Anemia in chronic illness P/ Continue current POC and Medications. Change to oral Lasix. May not need diuretics as an outpt. Replete potassium prn. Repeat IV pamidronate prn. No NSAIDs. AM Labs. Daily weight. Counseled regarding hypercalcemia and edema. Case reviewed with Dr. Berrios.
[2020-06-26 23:25] LABS: Albumin, (SPE) 3.1 g/dL (3.8-4.8); Alpha-1-Globulins 0.4 g/dL (0.2-0.3); Alpha-2-Globulins 0.6 g/dL (0.5-0.9); Gamma Globulins 3.4 g/dL (0.8-1.7); INTERPRETATION REPORT
== END 2020-06-26 18:37 | disposition home or self-care (01) | DRG 683 ==
LOC: ER 15:19 → ERHOLD 18:39 → 2ND 20:45
PROVIDERS: ADMIT Family Medicine; ATTEND Hospitalist
DX: N17.9 Acute kidney failure, unspecified (principal); E87.1 Hypo-osmolality and hyponatremia; E87.2 Acidosis; I48.0 Paroxysmal atrial fibrillation; I10 Essential (primary) hypertension; D63.8 Anemia in other chronic diseases classified elsewhere; E83.52 Hypercalcemia; J45.909 Unspecified asthma, uncomplicated; E87.6 Hypokalemia; R79.89 Other specified abnormal findings of blood chemistry; R06.02 Shortness of breath; R13.10 Dysphagia, unspecified; R63.4 Abnormal weight loss; Z68.28 Body mass index [BMI] 28.0-28.9, adult; Z88.4 Allergy status to anesthetic agent; Z88.1 Allergy status to other antibiotic agents; Z91.040 Latex allergy status; Z91.013 Allergy to seafood; Z96.652 Presence of left artificial knee joint; Z98.51 Tubal ligation status; Z87.891 Personal history of nicotine dependence; Z91.018 Allergy to other foods; Z79.899 Other long term (current) drug therapy; Z20.828 Contact with and (suspected) exposure to other viral communicable diseases
CPT/HCPCS: 36415; 71045; 76770; 80048; 80061; 80076; 82306; 82330; 82550; 82652; 82947; 83735; 83880; 83970; 84100; 84132; 84165; 84439; 84443; 84484; 84550; 85025; 85610; 86334; 92610; 93005; 93306; 96361; 96372; 96374; 96375; 99251; 99285; J1644; J1940; J2430; J3475; J3480; J7030; J7040; J7042; U0002

== ENCOUNTER 2020-08-07 11:46 | Inpatient (IN) | payer OTHER, MEDICARE ==
[2020-08-07 12:48] LABS: Absolute Lymphocytes (CBC) 0.6 K/uL (0.7-4.9); Basophils % 0.4 % (0-1.3); Hematocrit 20.8 % (36.0-45.0); MPV 7.1 fL (7.6-11.3); RBC Red Blood Cell Count 2.32 M/uL (3.86-4.86)
[2020-08-07 13:09] LABS: Magnesium 4.3 mg/dL (1.8-2.4)
[2020-08-07 13:26] LABS: Platelet Estimate ADEQ
[2020-08-07 13:27] LABS: Blood Morphology Comment NOT SEEN (NOT SEEN); Hypersegmented Neutrophils PRESENT
--- NOTE | 2020-08-07 13:27 | RAD REPORT ---
EXAM DESCRIPTION: Marybeth Single View08/07/2020 12:49 pm CLINICAL HISTORY: Cough COMPARISON: June 2020 FINDINGS: Calcified granuloma left lung The lungs appear clear of acute infiltrate. The heart is mil dly to moderately enlarged IMPRESSION: No acute abnormalities displayed
[2020-08-07 13:47] LABS: Urine Amorphous Sediment 1+ /HPF (NONE SEEN); Urine Bacteria 20-50 /HPF (<20); Urine Culture Reflex Order REFLEXED; Urine RBC NONE SEEN /HPF (NONE SEEN)
[2020-08-07 13:49] LABS: Urine Blood 2+ (NEG); Urine Glucose NEGATIVE (NEG); Urine Protein 2+ (NEG); Urine Specific Gravity 1.015 (1.005-1.030)
[2020-08-07] MEDS ORDERED: ONDANSETRON 4 MG/2 ML VIAL IV PRN (14:06)
[2020-08-07] MEDS ORDERED: ACETAMINOPHEN 500 MG TAB PO PRN (14:06)
--- NOTE | 2020-08-07 14:10 | ER ---
Nurse's Notes [facility] Name: Bhavani Dupont Age: 75 yrs Sex: Female : 1945 Arrival Date: 08/07/2020 Time: 11:47 Bed 4 Private MD: Diagnosis: Hypo-osmolality and hyponatremia;Acute kidney failure;Anemia, unspecified Presentation: 08/07 11:58 Chief complaint: Patient states: Unable to eat well, sleep well for past two weeks. Has ll1 low back pain and can't get comfortable. + weakness, SOB with exertion. Cough noted during triage, States she has bad allergies. Coronavirus screen: Client denies travel out of the [place] in the last 14 days. cough unrelated to allergies, fatigue, shortness of breath, Client presents with at least one sign or symptom that may indicate coronavirus-19. Standard/surgical mask placed on the client. Ebola Screen: Patient denies travel to an Ebola-affected area in the 21 days before illness onset. Initial Sepsis Screen: Does the patient meet any 2 criteria? No. Patient's initial sepsis screen is negative. Does the patient have a suspected source of infection? No. Patient's initial sepsis screen is negative. Risk Assessment: Do you want to hurt yourself or someone else? Patient reports no desire to harm self or others. Onset of symptoms was July 26, 2020. 11:58 Method Of Arrival: Wheelchair ll1 11:58 Acuity: IGOR 3 ll1 Historical: - Allergies: 12:01 all fish; ll1 12:01 Latex, Natural Rubber; ll1 12:01 Lidocaine; ll1 12:01 TETRACYCLINES; ll1 12:01 CORN CONTAINING PRODUCTS; ll1 - PMHx: 12:01 Asthma; ll1 - PSHx: 12:01 left knee replacement; Tubal ligation; 4 levels cervical neck surgery; ll1 - Immunization history:: Flu vaccine is up to date. - Social history:: Smoking status: Patient denies any tobacco usage or history of. - Family history:: not pertinent. - Hospitalizations: : No recent hospitalization is reported. Screenin:33 Abuse screen: Denies threats or abuse. Nutritional screening: No deficits noted. em Tuberculosis screening: No symptoms or risk factors identified. Fall Risk None identified. Assessment: 13:30 General: Appears in no apparent distress. comfortable, Behavior is calm, cooperative, em appropriate for age, Denies fever. Pain: Complains of pain in lumbar area Pain currently is 7 out of 10 on a pain scale. Neuro: Level of Consciousness is awake, alert, obeys commands, Oriented to person, place, time, situation, Appropriate for age Reports. Cardiovascular: Capillary refill < 3 seconds Patient's skin is warm and dry. Respiratory: Reports shortness of breath on exertion cough that is dry, Airway is patent Respiratory effort is even, unlabored, Respiratory pattern is regular, symmetrical. GI: Reports intolerance of fluids, nausea. Derm: Skin is intact, is healthy with good turgor, Skin is pink, warm \T\ dry. Musculoskeletal: Capillary refill < 3 seconds, Range of motion: intact in all extremities. 14:30 Reassessment: Patient appears in no apparent distress at this time. Patient and/or em family updated on plan of care and expected duration. Pain level reassessed. Patient is alert, oriented x 3, equal unlabored respirations, skin warm/dry/pink. 15:30 Reassessment: Patient appears in no apparent distress at this time. Patient and/or em family updated on plan of care and expected duration. Pain level reassessed. Patient is alert, oriented x 3, equal unlabored respirations, skin warm/dry/pink. 16:24 Reassessment: Patient appears in no apparent distress at this time. Patient and/or em family updated on plan of care and expected duration. Pain level reassessed. Patient is alert, oriented x 3, equal unlabored respirations, skin warm/dry/pink. 17:24 Reassessment: Patient appears in no apparent distress at this time. Dr. Damon at em bedside. Vital Signs: 11:58 BP 119 / 51; Pulse 66; Resp 17; Temp 97.7; Pulse Ox 99% ; Weight 76.66 kg; Height 5 ft. ll1 6 in. (167.64 cm); Pain 7/10; 13:00 BP 135 / 69; Pulse 72; Resp 18; Pulse Ox 100% on R/A; em 14:00 BP 143 / 63; Pulse 74; Resp 18; Pulse Ox 100% on R/A; em 15:00 BP 142 / 69; Pulse 75; Resp 16; Pulse Ox 99% on R/A; em 16:00 BP 149 / 65; Pulse 75; Resp 18; Pulse Ox 100% ; em 17:00 BP 151 / 63; Pulse 72; Resp 16; Pulse Ox 97% on R/A; em 11:58 Body Mass Index 27.28 (76.66 kg, 167.64 cm) ll1 ED Course: 11:47 Patient arrived in ED. ds1 12:00 Triage completed. ll1 12:01 Arm band placed on Patient placed in an exam room, on a stretcher. ll1 12:05 Lorne Berrios MD is Attending Physician. rn 12:10 Shayy Calle, KHANG is Primary Nurse. hb 12:30 Inserted saline lock: 22 gauge in right antecubital area, using aseptic technique. kj1 Blood collected. 12:30 Lab(s) recollected, by ED staff, sent to lab. kj1 12:48 X-ray completed. Portable x-ray completed in exam room. Patient tolerated procedure jr1 well. 12:49 XRAY Chest (1 view) In Process Unspecified. EDMS 14:08 Marck Edward MD is Hospitalizing Provider. rn 14:29 Tr Gonzáles RN is Primary Nurse. em 14:33 Patient has correct armband on for positive identification. Placed in gown. Bed in low em position. Call light in reach. film tests checker on. Pulse ox on. NIBP on. 17:53 No provider procedures requiring assistance completed. Patient admitted, IV remains in em place. Administered Medications: 13:22 CANCELLED (Duplicate Order): NS 0.9% 1000 ml IV at 1000 ml once rn 14:10 Drug: NS 0.9% 1000 ml Route: IV; Rate: 150 ml/hr; Site: right antecubital; em 17:52 Follow up: IV Status: Infusion continued upon admission em 14:10 Drug: Tylenol 650 mg Route: PO; em 16:58 Follow up: Response: No adverse reaction em Point of Care Testing: Guaiac: 13:15 Stool Guaiac: Positive; Stool Hemoccult Control: Pass; rn 13:15 trace positive rn Outcome: 14:09 Decision to Hospitalize by Provider. rn 17:53 Admitted to ICU accompanied by nurse, via stretcher, room ER 9, Report called to marlena House RN 17:53 Condition: stable 17:53 Instructed on the need for admit, Demonstrated understanding of instructions. 18:01 Patient left the ED. iw Signatures: Dispatcher [employer] EDMS Bharti Perez jr1 Tr Gonzáles, RN RN marlena JudgeViridiana ds1 Supriya Madrigal, Lorne Goddard RN, MD MD rn Baxter, Heather, RN RN hb Jackson, Kandis kj1 Leo Preciado RN RN ll1 Corrections: (The following items were deleted from the chart) 12:06 11:58 Coronavirus screen: Client denies travel out of the [place] in the last 14 days. At ll1 this time, the client does not indicate any symptoms associated with coronavirus-19. ll1 12:07 11:58 Chief complaint: Patient states: Unable to eat well, sleep well for past two ll1 weeks. Has low back pain and can't get comfortable. + weakness, SOB with exertion. ll1 12:43 12:42 Lab(s) recollected, by ED staff, sent to lab. kj1 kj1
--- NOTE | 2020-08-07 14:10 | EDPHYS ---
Physician Documentation [facility] Name: Bhavani Dupont Age: 75 yrs Sex: Female : 1945 Arrival Date: 08/07/2020 Time: 11:47 Bed 4 Private MD: ED Physician Lorne Berrios HPI: 08/07 12:35 This 75 yrs old Female presents to ER via Wheelchair with complaints of rn Unable to eat/sleep. 12:35 Reports generalized weakness, began 4 weeks ago, reports decreased appetite, feels like rn "regurgitates" sometimes, reports has been eating and drinking small amounts of water and pureed foods, pumpkin pie. + decreased appetite and energy. + mild cough. Reports allergies acting up. NO focal weakness/numbness. No head injury. Reports cervical surgery last month and is healing fine. . Onset: The symptoms/episode began/occurred 1 month(s) ago. Severity of symptoms: At their worst the symptoms were mild in the emergency department the symptoms are unchanged. The patient has not experienced similar symptoms in the past. The patient has been recently seen by a physician:. Historical: - Allergies: 12:01 all fish; ll1 12:01 Latex, Natural Rubber; ll1 12:01 Lidocaine; ll1 12:01 TETRACYCLINES; ll1 12:01 CORN CONTAINING PRODUCTS; ll1 - PMHx: 12:01 Asthma; ll1 - PSHx: 12:01 left knee replacement; Tubal ligation; 4 levels cervical neck surgery; ll1 - Immunization history:: Flu vaccine is up to date. - Social history:: Smoking status: Patient denies any tobacco usage or history of. - Family history:: not pertinent. - Hospitalizations: : No recent hospitalization is reported. ROS: 12:35 Constitutional: Negative for fever, chills, and weight loss, Eyes: Negative for injury, rn pain, redness, and discharge, Neck: Negative for injury, pain, and swelling, Cardiovascular: Negative for chest pain, palpitations, and edema, Respiratory: Negative for shortness of breath, cough, wheezing, and pleuritic chest pain, Abdomen/GI: Negative for abdominal pain, diarrhea, and constipation, Back: + lower back pain : Negative for injury, bleeding, discharge, and swelling, MS/Extremity: Negative for injury and deformity, Skin: Negative for injury, rash, and discoloration, Neuro: Negative for headache,numbness, tingling, and seizure. Exam: 12:35 Constitutional: This is a well developed, well nourished patient who is awake, alert, rn and in no acute distress. Head/Face: Normocephalic, atraumatic. ENT: dry MM Neck: NO swelling, no crepitus Cardiovascular: Regular rate and rhythm. No pulse deficits. Respiratory: No increased work of breathing, no retractions or nasal flaring. Abdomen/GI: soft, non-tender Skin: Pale, no cyanosis MS/ Extremity: Pulses equal, no cyanosis. Neurovascular intact. Full, normal range of motion. Equal circumference. Neuro: Awake and alert, GCS 15, oriented to person, place, time, and situation. Cranial nerves II-XII grossly intact. Motor strength 4/5 in all extremities. Sensory grossly intact. Cerebellar exam normal. 14:11 ECG was reviewed by the Attending Physician. rn Vital Signs: 11:58 BP 119 / 51; Pulse 66; Resp 17; Temp 97.7; Pulse Ox 99% ; Weight 76.66 kg; Height 5 ft. ll1 6 in. (167.64 cm); Pain 7/10; 13:00 BP 135 / 69; Pulse 72; Resp 18; Pulse Ox 100% on R/A; em 14:00 BP 143 / 63; Pulse 74; Resp 18; Pulse Ox 100% on R/A; em 15:00 BP 142 / 69; Pulse 75; Resp 16; Pulse Ox 99% on R/A; em 16:00 BP 149 / 65; Pulse 75; Resp 18; Pulse Ox 100% ; em 17:00 BP 151 / 63; Pulse 72; Resp 16; Pulse Ox 97% on R/A; em 11:58 Body Mass Index 27.28 (76.66 kg, 167.64 cm) ll1 MDM: 12:05 Patient medically screened. rn 13:20 Differential Diagnosis acute kidney failure, electrolyte abnormality, UTI, anemia, trademark attorney side effect. Data reviewed: vital signs, nurses notes, lab test result(s), EKG, and as a result, I will admit patient. Counseling: I had a detailed discussion with the patient and/or guardian regarding: the historical points, exam findings, and any diagnostic results supporting the discharge/admit diagnosis, lab results, radiology results, the need for further work-up and treatment in the hospital. Response to treatment: the patient's symptoms have mildly improved after treatment, and as a result, I will admit patient. Admission orders: after a detailed discussion of the patient's condition and case, the admit orders are written by me. ED course: Pt with anemia, trace positive hemoccult, no report of blood in stool, only on baby aspirin. Most notable findings are acute kidney failure and hyponatremia. Admitted to Dr. Edward for further care and nephrology consult. . 13:25 ED course: Called Dr. Negron for consultation regarding kidney failure and rn hyponatremia. 08/07 12:20 Order name: CBC with Diff; Complete Time: 14:09 rn 08/07 12:20 Order name: Basic Metabolic Panel; Complete Time: 13:14 rn 08/07 12:20 Order name: Urine Microscopic Only; Complete Time: 14:09 rn 08/07 12:20 Order name: Magnesium; Complete Time: 13:14 rn 08/07 12:21 Order name: COVID-19 rn 08/07 12:22 Order name: CORONAVIRUS EDSC 08/07 13:27 Order name: Manual Differential; Complete Time: 14:09 EDMS 08/07 13:44 Order name: Urine Dipstick--Ancillary (enter results); Complete Time: 14:09 bd 08/07 13:49 Order name: Urine Culture EDSC 08/07 14:19 Order name: Basic Metabolic Panel EDSC 08/07 14:19 Order name: Basic Metabolic Panel EDSC 08/07 14:19 Order name: Comprehensive Metabolic Panel EDSC 08/07 14:19 Order name: Comprehensive Metabolic Panel EDSC 08/07 14:19 Order name: Magnesium EDSC 08/07 12:34 Order name: XRAY Chest (1 view); Complete Time: 14:09 rn 08/07 14:19 Order name: Magnesium EDMS 08/07 14:19 Order name: NT PRO-BNP EDMS 08/07 14:19 Order name: NT PRO-BNP EDMS 08/07 14:19 Order name: Phosphorus EDMS 08/07 14:19 Order name: Phosphorus EDMS 08/07 14:19 Order name: Protime (+INR) EDMS 08/07 14:19 Order name: Protime (+INR) EDMS 08/07 14:19 Order name: PTT, Activated Partial Thromb EDMS 08/07 14:19 Order name: PTT, Activated Partial Thromb EDMS 08/07 14:20 Order name: Urinalysis EDMS 08/07 14:20 Order name: CBC with Automated Diff EDMS 08/07 14:20 Order name: CBC with Automated Diff EDMS 08/07 16:10 Order name: SARS-COV-2 RT PCR; Complete Time: 16:23 EDMS 08/07 12:20 Order name: IV Start; Complete Time: 12:52 rn 08/07 12:20 Order name: Urine Dipstick-Ancillary (obtain specimen); Complete Time: 17:17 rn 08/07 12:20 Order name: EKG; Complete Time: 12:21 rn 08/07 12:20 Order name: EKG - Nurse/Tech; Complete Time: 17:17 rn 08/07 14:19 Order name: CONS Physician Consult EDSC 08/07 14:19 Order name: Renal EDSC 08/07 14:22 Order name: Renal Ultrasound-Complete; Complete Time: 16:23 EDMS EC:11 Rate is 74 beats/min. Rhythm is regular. QRS [place] is Normal. [place] interval is normal. QRS rn interval is normal. QT interval is normal. No Q waves. T waves are Normal. No ST changes noted. Clinical impression: Normal ECG. Interpreted by me. Reviewed by me. Administered Medications: 13:22 CANCELLED (Duplicate Order): NS 0.9% 1000 ml IV at 1000 ml once rn 14:10 Drug: NS 0.9% 1000 ml Route: IV; Rate: 150 ml/hr; Site: right antecubital; em 17:52 Follow up: IV Status: Infusion continued upon admission em 14:10 Drug: Tylenol 650 mg Route: PO; em 16:58 Follow up: Response: No adverse reaction em Point of Care Testing: Guaiac: 13:15 Stool Guaiac: Positive; Stool Hemoccult Control: Pass; rn 13:15 trace positive rn Disposition: 08/07/20 14:09 Hospitalization ordered by Marck Edward for Inpatient Admission. Preliminary diagnosis are Hypo-osmolality and hyponatremia, Acute kidney failure, Anemia, unspecified. - Bed requested for Intensive Care Unit. - Status is Inpatient Admission. iw - Condition is Stable. - Problem is new. - Symptoms have improved. Signatures: Dispatcher [employer] EDSC Tr Gonzáles, RN Supriya Sal RN Lorne Goddard MD MD rn Lewis, Lynsay, RN RN ll1 Corrections: (The following items were deleted from the chart) 13:15 12:35 Constitutional: This is a well developed, well nourished patient who is awake, rn alert, and in no acute distress. Head/Face: Normocephalic, atraumatic. ENT: dry MM Neck: NO swelling, no crepitus Cardiovascular: Regular rate and rhythm. No pulse deficits. Respiratory: No increased work of breathing, no retractions or nasal flaring. Abdomen/GI: soft, non-tender MS/ Extremity: Pulses equal, no cyanosis. Neurovascular intact. Full, normal range of motion. Equal circumference. Neuro: Awake and alert, GCS 15, oriented to person, place, time, and situation. Cranial nerves II-XII grossly intact. Motor strength 4/5 in all extremities. Sensory grossly intact. Cerebellar exam normal. rn 13:22 13:15 NS 0.9% 1000 ml IV at 1000 ml once ordered. rn rn 13:38 12:21 Head Brain Wo Cont+CT.RAD.BRZ ordered. EDSC EDMS 13:38 12:21 Soft Tissue Neck W/Contr+CT.RAD.BRZ ordered. [facility] EDMS 18:01 14:09 Hospitalization Ordered by Marck Edward MD for Inpatient Admission. Preliminary iw diagnosis is Hypo-osmolality and hyponatremia; Acute kidney failure; Anemia, unspecified. Bed requested for Intensive Care Unit. Status is Inpatient Admission. Condition is Stable. Problem is new. Symptoms have improved. rn
[2020-08-07] MEDS ORDERED: NA CHLORIDE 0.9% 1,000 ML ONE ×2 (14:24→21:52)
[2020-08-07] MEDS ORDERED: ACETAMINOPHEN 325 MG TABLET ONE (14:24)
[2020-08-07] MEDS: HEPARIN 5000 UNIT/ML 1 ML VIAL SQ SCH ×2 (15:00→21:41)
[2020-08-07] MEDS: NA CHLORIDE 0.9% 1,000 ML IV SCH ×2 (15:00→23:00)
--- NOTE | 2020-08-07 15:31 | RAD REPORT ---
EXAM DESCRIPTION: US - Renal Ultrasound-Complete - 08/07/2020 3:11 pm CLINICAL HISTORY: MARICRUZ COMPARISON: Renal Ultrasound-Complete dated 06/21/2020 FINDINGS: Kidneys are stable in size since the short interval June 21 examination. Renal cortical thickness and echogenicity are normal. No hydronephrosis or suspicious renal mass. No bladder wall thickening or mass. No intraluminal stone or mass. IMPRESSION: No hydronephrosis or suspicious renal mass. No other significant findings. No identifiable change from June 21.
[2020-08-07] MEDS ORDERED: HEPARIN 5000 UNIT/ML 1 ML VIAL ONE (21:52)
--- NOTE | 2020-08-07 21:56 | P.CNS ---
Date of Consult: 08/07/20 Reason for Consult: Hyponatremia/ MARICRUZ Requesting Physician: Marck Edward Chief Complaint: Malaise History of Present Illness: 75 yo WF presents to the ER with several weeks of moderate, progressive malaise with associated nausea and anorexia. Denies NSAIDs. Denies difficulty with urination. 12:35 This 75 yrs old Female presents to ER via Wheelchair with complaints of rn Unable to eat/sleep. 12:35 Reports generalized weakness, began 4 weeks ago, reports decreased appetite, feels like rn "regurgitates" sometimes, reports has been eating and drinking small amounts of water and pureed foods, pumpkin pie. + decreased appetite and energy. + mild cough. Reports allergies acting up. NO focal weakness/numbness. No head injury. Reports cervical surgery last month and is healing fine. . Onset: The symptoms/episode began/occurred 1 month(s) ago. Severity of symptoms: At their worst the symptoms were mild in the emergency department the symptoms are unchanged. The patient has not experienced similar symptoms in the past. The patient has been recently seen by a physician:. Allergies Fish Containing Products Allergy (Verified 06/20/20 20:44) Anaphylaxis Latex, Natural Rubber Allergy (Verified 06/20/20 20:44) Itching/Hives/Rash lidocaine Allergy (Verified 06/20/20 20:44) Itching/Hives/Rash nut - unspecified Allergy (Verified 06/21/20 02:36) Anaphylaxis tetracycline Allergy (Verified 06/20/20 20:44) Itching/Hives/Rash corn Adverse Reaction (Verified 06/21/20 02:36) Itching/Hives/Rash Home medications list reviewed: Yes Home Medications: Albuterol Sulfate [Albuterol Sulfate Hfa] 2 puff IH Q6HP PRN 06/20/20 Amlodipine [Norvasc*] 10 mg PO DAILY 30 Days #30 tab 06/26/20 Aspirin [Aspirin EC 81 MG] 81 mg PO DAILY #30 tablet. 06/26/20 Metoprolol Tartrate [Lopressor*] 25 mg PO BID 30 Days #60 tab 06/26/20 Metoprolol Tartrate [Lopressor*] 25 mg PO BID 6AM 6PM 30 Days #60 tab 06/26/20 - Past Medical/Surgical History Diabetic: No -: Asthma -: Four level cervical surgery -: Left knee replacement -: Tubal ligation Psychosocial/ Personal History: Patient lives at home with her . - Family History Father Medical History: Heart disease Mother Medical History: Cancer - Social History Smoking Status: Never smoker Alcohol use: No CD- Drugs: No Caffeine use: No Place of Residence: Home Review of Systems 10-point ROS is otherwise unremarkable General: Weakness, Malaise Gastrointestinal: Nausea Neurological: Weakness Physical Examination Temp Pulse Resp BP Pulse Ox 98.7 F 80 16 135/57 L 98 08/07/20 18:00 08/07/20 19:00 08/07/20 19:00 08/07/20 19:00 08/07/20 19:00 General: In no apparent distress, Oriented x3, Cooperative HEENT: Atraumatic Neck: Supple Respiratory: Clear to auscultation bilaterally Cardiovascular: No edema, Regular rate/rhythm Gastrointestinal: Soft and benign, Non-distended Musculoskeletal: No clubbing, No contractures Integumentary: No rashes, No cyanosis Neurological: Normal speech Laboratory Data (last 24 hrs) 08/07/20 12:30: Sodium 107 L*, Potassium 5.0, BUN 87 H, Creatinine 6.14 H*, Glucose 92, Magnesium 4.3 H* D 08/07/20 12:30: WBC 10.5, Hgb 7.5 L*, Hct 20.8 L*, Plt Count 451 H Imagings Data: EXAM DESCRIPTION: Owent Single View08/07/2020 12:49 pm CLINICAL HISTORY: Cough COMPARISON: June 2020 FINDINGS: Calcified granuloma left lung The lungs appear clear of acute infiltrate. The heart is mildly to moderately enlarged IMPRESSION: No acute abnormalities displayed EXAM DESCRIPTION: US - Renal Ultrasound-Complete - 08/07/2020 3:11 pm CLINICAL HISTORY: MARICRUZ COMPARISON: Renal Ultrasound-Complete dated 06/21/2020 FINDINGS: Kidneys are stable in size since the short interval June 21 exa mination. Renal cortical thickness and echogenicity are normal. No hydronephrosis or suspicious renal mass. No bladder wall thickening or mass. No intraluminal stone or mass. IMPRESSION: No hydronephrosis or suspicious renal mass. No other significant findings. No identifiable change from June 21. Conclusions/Impression: A/ MARICRUZ of unclear etiology Hyponatremia Hyperkalemia Acidosis CKD with proteinuria Anemia in chronic illness P/ Continue current POC and Medications Continue IVF. Start oral bicarb. No NSAIDs. Check hepatitis panel. AM labs. Daily weight. May need to consider dialysis if no improvement. Thank you for the consultation. Case discussed with Dr. Edward.
[2020-08-07] MEDS ORDERED: SODIUM BICARB 325 MG TAB PO ONE ×2 (23:00→23:39)
[2020-08-07] MEDS ORDERED: SODIUM CHLORIDE 1 GM TAB PO ONE (23:00)
[2020-08-08] MEDS ORDERED: SODIUM CHLORIDE 1 GM TAB ONE (00:01)
[2020-08-08 01:17] LABS: Urine Appearance CLEAR; Urine Bilirubin NEGATIVE (NEG); Urine Blood 1+ (NEG); Urine Color YELLOW; Urine Glucose NEGATIVE (NEG); Urine Protein 1+ (NEG); Urine Urobilinogen 0.2 mg/dL (0.2-1.0)
[2020-08-08 01:59] LABS: Urine Culture Reflex Order NOT NEEDED
[2020-08-08 02:30] LABS: Urine Bacteria <20 /HPF (<20); Urine RBC <5 /HPF (NONE SEEN); Urine Urothelial Cells <5 /HPF (NONE SEEN)
[2020-08-08 04:58] LABS: Absolute Lymphocytes (CBC) 0.6 K/uL (0.7-4.9); Basophils % 0.3 % (0-1.3); Lymphocytes % 5.4 % (15.3-44.8); MPV 6.9 fL (7.6-11.3)
[2020-08-08 05:10] LABS: Protime INR 0.85
[2020-08-08 05:28] LABS: Albumin 2.6 g/dL (3.4-5.0); Bilirubin Total 0.3 mg/dL (0.2-1.0); Phosphorus 5.7 mg/dL (2.5-4.9); Potassium 4.7 mmol/L (3.5-5.1); Uric Acid 5.1 mg/dL (2.6-6.0)
--- NOTE | 2020-08-08 05:57 | EKG ---
Test Date: 2020-08-07 Test Time: 13:22:05 [employer] Representative: JUAN MEASUREMENT RESULTS: Intervals: Rate: 74 GA: 172 QRSD: 94 QT: 344 QTc: 381 [place]: P: 71 GA: 172 QRS: 42 T: 85 INTERPRETIVE STATEMENTS: Normal sinus rhythm Normal ECG Compared to ECG 06/20/2020 16:02:14 Incomplete right bundle-branch block no longer present Electronically Signed On 08-08-20 05:55:34 CDT by Theron Mccain
[2020-08-08] MEDS: DOCUSATE NA 100 MG CAP PO SCH ×2 (08:41→21:00)
[2020-08-08] MEDS: SODIUM BICARB 325 MG TAB PO SCH ×4 (08:41→23:47)
[2020-08-08] MEDS: VITAMIN D 5,000 UNIT CAP PO SCH (08:41)
[2020-08-08] MEDS: HEPARIN 5000 UNIT/ML 1 ML VIAL SQ SCH ×2 (08:46→09:00)
[2020-08-08] MEDS ORDERED: EPOETIN ALFA-EPBX 10,000 UNIT/ML VIAL SQ SCH (09:00)
[2020-08-08] MEDS: NA CHLORIDE 0.9% 1,000 ML IV SCH ×2 (09:19→21:00)
[2020-08-08] MEDS ORDERED: NA CHLORIDE 0.9% 1,000 ML ONE ×2 (09:27→20:57)
[2020-08-08 10:33] LABS: Urine Appearance CLEAR; Urine Bilirubin NEGATIVE (NEG); Urine Blood 1+ (NEG); Urine Color YELLOW; Urine Glucose NEGATIVE (NEG); Urine Protein 1+ (NEG); Urine Urobilinogen 0.2 mg/dL (0.2-1.0)
[2020-08-08 11:20] LABS: Urine Bacteria 20-50 /HPF (<20)
[2020-08-08 11:21] LABS: Urine Culture Reflex Order REFLEXED
[2020-08-08 11:26] LABS: MPV 7.2 fL (7.6-11.3); RBC Red Blood Cell Count 2.04 M/uL (3.86-4.86)
[2020-08-08 11:39] LABS: Hematocrit 18.5 % (36.0-45.0)
--- NOTE | 2020-08-08 13:59 | P.HP ---
Certification for Inpatient Patient admitted to: Inpatient With expected LOS: >2 Midnights Patient will require the following post-hospital care: None Practitioner: I am a practitioner with admitting privileges, knowledge of patient current condition, hospital course, and medical plan of care. Services: Services provided to patient in accordance with Admission requirements found in Title 42 Section 412.3 of the Code of Federal Regulations Patient History Date of Service: 08/07/20 Reason for admission: Malaise History of Present Illness: PATIENT IS A 75-YEAR-OLD FEMALE WHO CAME INTO THE HOSPITAL WITH GENERALIZED WEAKNESS. HE HAS BEEN HAVING ANOREXIA AND DYSPHAGIA WELL CONFUSION. SHE RECENTLY HAD A CERVICAL SPINE PROCEDURE WHICH LEFT HER RIGHT UPPER EXTREMITY NUMB AND WEAK. SHE SAID SHE HAS BEEN REALLY SLOW TO REGAIN STRENGTH IN THAT EXTREMITY. SHE DOES HAVE SOME WEIGHT LOSS WELL. HER BASELINE CREATININE IS 3 WITH A GFR OF APPROXIMATELY 20. SHE CAME IN WITH A GFR OF 6. AT THIS TIME, SHE ALSO HAS SEVERE HYPONATREMIA WHICH IS CAUSING ALTERED MENTATION. HER SODIUM IS ONLY 107. SHE NORMALLY DOES NOT SUFFER FROM HYPONATREMIA. WILL ADMIT HER TO THE INTENSIVE CARE UNIT FOR CLOSE OBSERVATION. SHE ALSO HAS A LOW HEMOGLOBIN BUT DENIES ANY BLEEDING. HE MAY NEED PACKED RED BLOOD CELLS HER HEMOGLOBIN IS LESS THAN 7. WE WILL DISCUSS THE CASE WITH NEPHROLOGY. Allergies Fish Containing Products Allergy (Verified 06/20/20 20:44) Anaphylaxis Latex, Natural Rubber Allergy (Verified 06/20/20 20:44) Itching/Hives/Rash lidocaine Allergy (Verified 06/20/20 20:44) Itching/Hives/Rash nut - unspecified Allergy (Verified 06/21/20 02:36) Anaphylaxis tetracycline Allergy (Verified 06/20/20 20:44) Itching/Hives/Rash corn Adverse Reaction (Verified 06/21/20 02:36) Itching/Hives/Rash Home Medications: Albuterol Sulfate [Albuterol Sulfate Hfa] 2 puff IH Q6HP PRN 06/20/20 Amlodipine [Norvasc*] 10 mg PO DAILY 30 Days #30 tab 06/26/20 Aspirin [Aspirin EC 81 MG] 81 mg PO DAILY #30 tablet. 06/26/20 Metoprolol Tartrate [Lopressor*] 25 mg PO BID 30 Days #60 tab 06/26/20 Ondansetron HCl [Zofran] 8 mg PO Q12HP PRN 08/07/20 - Past Medical/Surgical History Has patient received pneumonia vaccine in the past: Yes Diabetic: No -: Asthma -: CHRONIC KIDNEY DISEASE -GFR OF 20 -: HISTORY OF HYPERTENSION -: HISTORY OF CAD -: HISTORY OF ATRIAL FIBRILLATION -: Cervical spine surgery -: Left knee replacement -: Tubal ligation Psychosocial/ Personal History: Patient lives at home with her . - Family History Father Medical History: Heart disease Mother Medical History: Cancer - Social History Alcohol use: No CD- Drugs: No Caffeine use: No Place of Residence: Home Review of Systems 10-point ROS is otherwise unremarkable Physical Examination - Vital Signs Temperature: 98.2 F Blood Pressure: 129/62 Pulse: 74 Respirations: 20 Pulse Ox (%): 99 - Physical Exam General: Alert, In no apparent distress, Cachectic, Confused, Unresponsive HEENT: Atraumatic, Normocephalic Respiratory: Diminished Cardiovascular: Regular rate/rhythm, Normal S1 S2, Systolic murmur Gastrointestinal: Normal bowel sounds, Soft and benign, Non-distended, No rebound, No guarding Musculoskeletal: No clubbing, Swelling Neurological: Normal gait, Normal strength at 5/5 x4 extr, Normal tone, Sensation intact, Cranial nerves 3-12 intact Assessment & Plan - Problems (Diagnosis) (1) Hyponatremia Current Visit: Yes Status: Acute (2) MARICRUZ (acute kidney injury) Current Visit: Yes Status: Acute (3) ESRD (end stage renal disease) Current Visit: Yes Status: Acute (4) Metabolic acidosis Current Visit: Yes Status: Acute (5) HTN (hypertension) Current Visit: Yes Status: Acute (6) Uremic syndrome Current Visit: Yes Status: Acute (7) Atrial fibrillation Current Visit: Yes Status: Acute - Plan Plan: 1. Continue with saline 2. Possibly transfuse if okay with nephrology 3. Monitor renal function closely 4. Correct sodium at 10/12 meq/dL per day 5. we will continue to do neuro checks as well 6. physical therapy evaluation 7. may try medication for neuropathy 8. monitor H&H serially and transfuse if hemoglobin continues to decrease 9. GI and DVT prophylaxis Discharge Plan: Home Plan to discharge in: Greater than 2 days - Advance Directives Does patient have a Living Will: No Does patient have a Durable POA for Healthcare: No - Code Status/Comfort Care Code Status Assessed: Yes Code Status: Full Code Critical Care: Yes Time Spent Managing PTS Care (In Minutes): 45
[2020-08-08 15:31] LABS: Potassium 4.4 mmol/L (3.5-5.1)
[2020-08-08] MEDS ORDERED: EPOETIN ALFA-EPBX 10,000 UNIT/ML VIAL SQ ONE (18:00)
[2020-08-08] MEDS ORDERED: NA CHLORIDE 0.9% 250 ML ONE (18:30)
--- NOTE | 2020-08-08 20:44 | P.PN ---
Date of Service: 08/08/20 Vital Signs Temp Pulse Resp BP Pulse Ox 98.2 F 78 20 142/69 H 99 08/08/20 16:00 08/08/20 17:41 08/08/20 17:41 08/08/20 17:41 08/08/20 17:41 Medications Acetaminophen (Tylenol -Extra Strength) 500 mg PO Q4HP PRN PRN Reason: pain/fever Stop: 09/06/20 14:07 Cholecalciferol (Vitamin D 5,000 Iu Cap) 5,000 unit PO DAILY CHELI Stop: 09/07/20 09:01 Last Admin: 08/08/20 08:41 Dose: 5,000 unit Documented by: Docusate Sodium (Colace Cap) 100 mg PO BID CHELI Stop: 09/07/20 09:01 Last Admin: 08/08/20 08:41 Dose: 100 mg Documented by: Heparin Sodium (Porcine) (Heparin 5,000 Units/Ml) 5,000 unit SQ Q12HR CHELI Stop: 09/06/20 15:01 Last Admin: 08/08/20 09:00 Dose: Not Given Documented by: Sodium Chloride (Ns 1000 Ml Ivbag) 1,000 mls @ 100 mls/hr IV .Q10H CHELI Stop: 09/06/20 15:01 Last Admin: 08/08/20 09:19 Dose: 1,000 mls Documented by: Ondansetron HCl (Zofran) 4 mg IV Q6HP PRN PRN Reason: NAUSEA / VOMITING Stop: 09/06/20 14:07 Sodium Bicarbonate (Sodium Bicarb 325 Mg) 650 mg PO QID CHELI Stop: 09/07/20 17:01 Last Admin: 08/08/20 17:23 Dose: 650 mg Documented by: Sodium Chloride (Normal Saline Flush) 10 ml IV BID CHELI Stop: 09/06/20 21:01 Last Admin: 08/08/20 08:45 Dose: 10 ml Documented by: Microbiology Results 08/07/20 13:25 Clean Catch Urine [place] Count - Preliminary BETWEEN 10,000 & 100,000 CFU/ML 08/07/20 13:25 Clean Catch Urine - Preliminary Assessment/ Plan: Nephrology Difficulty with swallowing. Numbness in her hands when she sits up. CPS stable without CP or SOB. No acute events overnight. Vitals, medications, blood work and imaging reviewed in the chart. General: In no apparent distress, Oriented x3, Cooperative HEENT: Atraumatic Neck: Supple Respiratory: Clear to auscultation bilaterally Cardiovascular: No edema, Regular rate/rhythm Gastrointestinal: Soft and benign, Non-distended Musculoskeletal: No clubbing, No contractures Integumentary: No rashes, No cyanosis Neurological: Normal speech Laboratory Data (last 24 hrs) 08/07/20 12:30: Sodium 107 L*, Potassium 5.0, BUN 87 H, Creatinine 6.14 H*, Glucose 92, Magnesium 4.3 H* D 08/07/20 12:30: WBC 10.5, Hgb 7.5 L*, Hct 20.8 L*, Plt Count 451 H Imagings Data: EXAM DESCRIPTION: RADChest Single View08/07/2020 12:49 pm CLINICAL HISTORY: Cough COMPARISON: June 2020 FINDINGS: Calcified granuloma left lung The lungs appear clear of acute infiltrate. The heart is mildly to moderately enlarged IMPRESSION: No acute abnormalities displayed EXAM DESCRIPTION: US - Renal Ultrasound-Complete - 08/07/2020 3:11 pm CLINICAL HISTORY: MARICRUZ COMPARISON: Renal Ultrasound-Complete dated 06/21/2020 FINDINGS: Kidneys are stable in size since the short interval June 21 examination. Renal cortical thickness and echogenicity are normal. No hydronephrosis or suspicious renal mass. No bladder wall thickening or mass. No intraluminal stone or mass. IMPRESSION: No hydronephrosis or suspicious renal mass. No other significant findings. No identifiable change from June 21. Conclusions/Impression: A/ MARICRUZ of unclear etiology Hyponatremia Hyperkalemia Acidosis CKD with proteinuria Anemia in chronic illness P/ Continue current POC and Medications Continue IVF. Transfuse PRBC. Surgery consult for HD CVC placement. Initiate HD tomorrow. No NSAIDs. Hepatitis panel panel. AM labs. Daily weight. Case reviewed with Dr. Edward.
--- NOTE | 2020-08-08 22:01 | CON ---
Date of Consultation: 08/08/2020 Diagnosis: End-stage renal disease. History Of Present Illness: This is a case of a 75-year-old patient, who comes to us with multiple m edical problems, found to have renal insufficiency, and Dr. Damon, Renal Service, requests a hemodi alysis catheter tunneled for the patient to receive a hemodialysis. The patient not too long ago has a C-spine Surgery. She has been having also issues with anemia and weakness. Allergies: FISH, LATEX, LIDOCAINE, NUTS, TETRACYCLINE, AND CORN. Medications: Norvasc, aspirin, currently on heparin subcu, metoprolol, Zofran. Medical Problems: Kidney disease, asthma, hypertension, CAD, atrial fibrillation. Past Surgical History: C-spine surgery, left knee replacement, and tubal ligation. Family History: Heart disease. Review of Systems: Ten points otherwise unremarkable. No shortness of breath. No chest pain. No fever. Physical Examination: General: The patient is awake, alert. HEENT: Pupils anicteric. Neck: Supple. There are bruises bilaterally in upper neck area from previous neck surgery. Chest: Bilateral breath sounds. Extremities: Good capillary refill. Laboratory Data: Blood work shows WBC count of 11.2, hemoglobin of 6.6. The patient is about to rec eive a blood transfusion. Platelets of 398. INR is 0.85. Creatinine is 6.16. Potassium is 4.4. C hest x-ray shows, per Dr. Gomez, no acute abnormalities. Assessment And Plan: This is a 75-year-old patient in need of hemodialysis catheter. They request a HemoSplit hemodialysis catheter. 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 She also understa nds this may not relieve any symptoms. She might need more than one surgical intervention. She unde rstands the chance of pneumothorax. The renal doctors are working on her, we did speak at this momen t, and then they believe by tomorrow morning she will be ready so she is going to be placed n.p.o. af ter midnight. HM/MODL Voice ID: [id number] Report ID: [id number]
[2020-08-09] MEDS ORDERED: DOCUSATE NA 100 MG CAP PO ONE (00:34)
[2020-08-09] MEDS ORDERED: NA CHLORIDE 0.9% 0 ML ONE (01:03)
[2020-08-09 05:07] LABS: Absolute Lymphocytes (CBC) 0.6 K/uL (0.7-4.9); Basophils % 0.4 % (0-1.3); Lymphocytes % 5.7 % (15.3-44.8); MPV 7.1 fL (7.6-11.3); RBC Red Blood Cell Count 2.56 M/uL (3.86-4.86)
[2020-08-09 05:10] LABS: Protime INR 0.84
[2020-08-09 05:29] LABS: Albumin 2.6 g/dL (3.4-5.0); Bilirubin Total 0.3 mg/dL (0.2-1.0); Potassium 4.3 mmol/L (3.5-5.1); Protein, Total 9.1 g/dL (6.4-8.2)
[2020-08-09] MEDS: NA CHLORIDE 0.9% 1,000 ML IV SCH ×3 (05:54→15:58)
[2020-08-09] MEDS ORDERED: Ringers Lactate 1,000 ML IV ONE (07:18)
[2020-08-09] MEDS ORDERED: NS 0.9% VIAL 10 ML ONE (07:29)
[2020-08-09] MEDS ORDERED: NA CHLORIDE 0.9% 100 ML IV ONE (07:30)
[2020-08-09] MEDS ORDERED: LIDOCAINE 1% MPF 30 ML VIAL ONE (07:30)
[2020-08-09] MEDS ORDERED: HEPARIN 5000 UNIT/ML 1 ML VIAL ONE (07:30)
[2020-08-09] MEDS ORDERED: CEFAZOLIN/SWI 1gm 1 GM/10 ML SYR ONE (07:48)
[2020-08-09] MEDS ORDERED: propofoL 200 MG/20 ML VIAL IV ONE (07:49)
[2020-08-09] MEDS ORDERED: FENTANYL CITR 100 MCG/2 ML ONE (07:49)
[2020-08-09] MEDS ORDERED: MIDAZOLAM HCL 2 MG/2 ML INJ ONE (07:49)
[2020-08-09] MEDS ORDERED: LIDOCAINE 1% MPF 5 ML VIAL ONE (07:50)
--- NOTE | 2020-08-09 08:18 | P.BOP ---
Preoperative diagnosis: ESRD Postoperative diagnosis: same Primary procedure: 1. Placement of tunneled HD hemosplit cath Secondary procedure: 2. interpretation of fluoroscopy Other procedure(s): 3. Right neck ultrasound Estimated blood loss: <5cc Specimen: none Findings: as above Anesthesia: General Complications: None Transferred to: Recovery Room Condition: Good
--- NOTE | 2020-08-09 08:41 | RAD REPORT ---
EXAM DESCRIPTION: RAD - Fluoroscopy <1 Hour - 08/09/2020 8:28 am FINDINGS: There were 8 portable C-arm views obtained during fluoroscopic assisted placement of a vas cular access catheter. No suspicious or unexpected finding. Fluoro time was 0.4 minutes. Cumulative dose was 8.49 mGy.
[2020-08-09] MEDS ORDERED: NA CHLORIDE 0.9% 1,000 ML ONE (08:46)
[2020-08-09] MEDS: DOCUSATE NA 100 MG CAP PO SCH ×2 (09:00→20:59)
[2020-08-09] MEDS: VITAMIN D 5,000 UNIT CAP PO SCH (09:00)
[2020-08-09] MEDS: SODIUM BICARB 325 MG TAB PO SCH ×4 (09:00→20:59)
[2020-08-09] MEDS: HEPARIN 5000 UNIT/ML 1 ML VIAL SQ SCH ×2 (09:00→21:02)
--- NOTE | 2020-08-09 09:06 | RAD REPORT ---
EXAM DESCRIPTION: RAD - Chest Single View - 08/09/2020 8:58 am CLINICAL HISTORY: s/p Hd cath COMPARISON: Portable August 07 TECHNIQUE: AP portable chest image was obtained 08/09/2020 8:58 am . FINDINGS: Double-lumen catheter has been placed via right jugular approach. Short and long catheter tips are in the mid and distal SVC. No pneumothorax. No unexpected lung parenchymal finding. Heart and vasculature are normal. IMPRESSION: Right-sided hemodialysis catheter in good position. No pneumothorax.
[2020-08-09] MEDS ORDERED: MANNITOL 25% 12.5 GM/50 ML VIAL IV PRN (12:05)
[2020-08-09] MEDS ORDERED: NA CHLORIDE 0.9% 1,000 ML IV PRN (12:05)
[2020-08-09] MEDS ORDERED: ALBUMIN HUMAN 25% 50 ML IV SCH (13:00)
--- OUTSIDE RECORDS SUMMARY | 2020-08-09 13:40 | XMS REPORT | Continuity of Care Document ---
:1945 Author Organization [facility] t Address [address] [place] [address] Care Team Providers Name Role Phone Unavailable [...] DA Active SV 2020-0 [facility] line 05-24 [place] 00:[facility]: [facility] corn FA Active SV 2020-0 [facility] 7 [facility] latex DA Active SV 2020-0 [facility] 7- [place] 00:00: [facility] nut - FA Active U 2020-0 [facility] unspecif 05-24 [place] [facility] 00:[facility] [...] 6-25 [facility] [place] latex DA Active SV 2019-0 [facility] 6[facility] [place] Medications This patient has no known medications. [...] measure: (test code = GFR) mL/min/1.7 3 [id number] Range:Healthy A dults >90 mL/min/1.73 m2 For Chronic Kidney Disease: Stage II Mi ld Decrease in GFR 60-9 0 Stage III Moderate Decrease in GFR 30-59 Stage IV Severe Decrease in GFR 15-29 Stage V Kidney Failure <15 CREATININE (test code = CREAT) 1.24 mg/dL 0.55-1.30 N CALCIUM (test code = CA) 10.0 mg/dL 8.2-10.1 N HGB [id number] 05:58:00 Test Item Value Reference Range Interpretation Comments HEMOGLOBIN (test code = HGB) 10.5 g/dL 12-16 L HEMATOCRIT (test code = HCT) 32.3 % 37-47 L COVID 19 Asymptomatic IH [id number] 21:16:00 Test Item Value Reference Range Interpretation Comments COVID 19 Asymptomatic IH AG (test NEGATIVE code = COVNONPUIAG) CBC W/AUTO [id number] 11:42:00 Test Item Value Reference Range Interpretation [...] % 0-0 N code = NRBC) PROTHROMBIN [id number] 11:35:00 Test Item Value Reference Range Interpretation [...] BLOOD, PT every other day NTHROMBOPLASTIN TIME [id number] 11:35:00 Test Item Value Reference Range Interpretation Comments PTT ACTIVATED (test code = APTT) 34.1 secs 24.9-37.0 N IS PATIENT ON ANTICOAGULANTS ? NHas Lab been notified if Patient is on Heparin Drip? NOIf Yes, orderCBC, OCCULT BLOOD, PT every other day NBASIC METABOLIC [id number] 11:35:00 Test Item Value Reference Range Interpretation [...] RATE (test code = GFR) mL/mi n/1.73 [id number] Range:Healthy Adults >90 mL/min/1.73 m2 For Chronic Kidney Disease: St age II Mild Decrease in GFR 60-90 St age III Moderate Decrease in GFR 30-59 Stage IV Severe Decre ase in GFR 15- 29 Stage V Kidney Failure <15 CREATININE (test code 0.84 mg/dL 0.55-1.30 N = CREAT) CALCIUM (test code = 9.9 mg/dL 8.2-10.1 N CA) - MRI C-SPINE W/O [id number] 10:52:00 Patient Name: BIBI BUSTAMANTE Unit No: [id number] EXAMS: CPT CODE: [id number] MRI C-SPINE W/O CONT [id number] MRI OF THE CERVICAL SPINE: DIAGNOSIS: 1. [...] MD Technologist: Baylee ParrTKelly(R) Transcribed D/ (1052) [email or web address] [facility] NAME: BIBI BUSTAMANTE [address] [facility] PHYS: Fede Bustamante : [birth year]AGE: 74 SEX: F [place], [place] [address] LOC: Y.MRI PHONE #: [phone] EXAM DATE: 04/18/2020 STATUS: REG CLI FAX #: [phone] RAD #: D/C DT PAGE 1 Signed Report Patient Name: BIBI BUSTAMANTE Unit No: [id number] EXAMS: CPT CODE: [id number] MRI C-SPINE W/O CONT [id number] <Continued> Orig Print D/T: S: 04/18/2020 (1055) [place] [facility] NAME: BIBI BUSTAMANTE [address] [facility] PHYS: Krishna Bustamante : 1945 AGE: 74 SEX: F [place] [id number] LOC: Y.MRI PHONE #: [phone] EXAM DATE: 04/18/2020 STATUS: REG CLI FAX #: [phone] RAD #: D/C DT PAGE 2 Signed Report
[2020-08-09 17:47] VITALS: BMI 27.3
--- NOTE | 2020-08-09 19:18 | P.PN ---
Date of Service: 08/09/20 Vital Signs Temp Pulse Resp BP Pulse Ox 97.1 F 83 18 125/66 100 08/09/20 16:00 08/09/20 16:00 08/09/20 16:00 08/09/20 16:00 08/09/20 16:00 Medications Acetaminophen (Tylenol -Extra Strength) 500 mg PO Q4HP PRN PRN Reason: pain/fever Stop: 09/06/20 14:07 Cholecalciferol (Vitamin D 5,000 Iu Cap) 5,000 unit PO DAILY CHELI Stop: 09/07/20 09:01 Last Admin: 08/09/20 09:00 Dose: Not Given Documented by: Docusate Sodium (Colace Cap) 100 mg PO BID CHELI Stop: 09/07/20 09:01 Last Admin: 08/09/20 09:00 Dose: Not Given Documented by: Heparin Sodium (Porcine) (Heparin 5,000 Units/Ml) 5,000 unit SQ Q12HR CHELI Stop: 09/06/20 15:01 Last Admin: 08/09/20 09:00 Dose: Not Given Documented by: Heparin Sodium (Porcine) (Heparin 1,000 Units/Ml) 6,000 unit IV EVERY HD PRN PRN Reason: AFTER EACH Stop: 09/08/20 12:06 Sodium Chloride (Ns 1000 Ml Ivbag) 1,000 mls @ 100 mls/hr IV .Q10H CHELI Stop: 09/06/20 15:01 Last Admin: 08/09/20 15:58 Dose: 1,000 mls Documented by: Sodium Chloride (Ns 1000 Ml Ivbag) 1,000 mls @ 0 mls/hr IV .Q0M PRN; Protocol PRN Reason: Priming and BP support at HD Stop: 08/09/20 23:59 Albumin Human (Albumin 25%) 50 mls @ 100 mls/hr IV EVERY HD CHELI Stop: 09/08/20 13:01 Mannitol (Mannitol 12.5 Gm/50 Ml Vial) 12.5 gm IV EVERY HD PRN PRN Reason: Titrate to SBP (MUST DEFINE) Stop: 09/08/20 12:06 Ondansetron HCl (Zofran) 4 mg IV Q6HP PRN PRN Reason: NAUSEA / VOMITING Stop: 09/06/20 14:07 Sodium Bicarbonate (Sodium Bicarb 325 Mg) 650 mg PO QID [facility] Stop: 09/07/20 17:01 Last Admin: 08/09/20 15:59 Dose: 650 mg Documented by: Sodium Chloride (Normal Saline Flush) 10 ml IV BID [facility] Stop: 09/06/20 21:01 Last Admin: 08/09/20 09:00 Dose: Not Given Documented by: Microbiology Results 08/07/20 13:25 Clean Catch Urine [place] Count - Final BETWEEN 10,000 & 100,000 CFU/ML 08/07/20 13:25 Clean Catch Urine - Final Escherichia Coli Assessment/ Plan: Nephrology Feeling better with the blood transfusion. CPS stable without CP or SOB. No acute events overnight. Vitals, medications, blood work and imaging reviewed in the chart. General: In no apparent distress, Oriented x3, Cooperative HEENT: Atraumatic Neck: Supple Respiratory: Clear to auscultation bilaterally Cardiovascular: No edema, Regular rate/rhythm Gastrointestinal: Soft and benign, Non-distended Musculoskeletal: No clubbing, No contractures Integumentary: No rashes, No cyanosis Neurological: Normal speech Laboratory Data (last 24 hrs) 08/07/20 12:30: Sodium 107 L*, Potassium 5.0, BUN 87 H, Creatinine 6.14 H*, Glucose 92, Magnesium 4.3 H* D 08/07/20 12:30: WBC 10.5, Hgb 7.5 L*, Hct 20.8 L*, Plt Count 451 H Imagings Data: EXAM DESCRIPTION: RADChest Single View08/07/2020 12:49 pm CLINICAL HISTORY: Cough COMPARISON: June 2020 FINDINGS: Calcified granuloma left lung The lungs appear clear of acute infiltrate. The heart is mildly to moderately enlarged IMPRESSION: No acute abnormalities displayed EXAM DESCRIPTION: US - Renal Ultrasound-Complete - 08/07/2020 3:11 pm CLINICAL HISTORY: MARICRUZ COMPARISON: Renal Ultrasound-Complete dated 06/21/2020 FINDINGS: Kidneys are stable in size since the short interval June 21 examination. Renal cortical thickness and echogenicity are normal. No hydron ephrosis or suspicious renal mass. No bladder wall thickening or mass. No intraluminal stone or mass. IMPRESSION: No hydronephrosis or suspicious renal mass. No other significant findings. No identifiable change from June 21. Conclusions/Impression: A/ MARICRUZ of unclear etiology Hyponatremia Hyperkalemia Acidosis CKD with proteinuria Anemia in chronic illness P/ Continue current POC and Medications Continue IVF. Transfuse PRBC. Initiate HD today. Next HD tomorrow. Start Restoril for insomnia. No NSAIDs. Hepatitis panel panel. AM labs. Daily weight.
[2020-08-09] MEDS ORDERED: NEPRO SHAKE 237 ML CAN PO SCH (21:00)
[2020-08-10] MEDS: NA CHLORIDE 0.9% 1,000 ML IV SCH ×2 (04:14→17:20)
[2020-08-10 05:51] LABS: Absolute Lymphocytes (CBC) 0.6 K/uL (0.7-4.9); Basophils % 0.8 % (0-1.3); Hematocrit 20.6 % (36.0-45.0); Lymphocytes % 6.5 % (15.3-44.8); RBC Red Blood Cell Count 2.28 M/uL (3.86-4.86)
[2020-08-10 06:02] LABS: Potassium 3.3 mmol/L (3.5-5.1)
[2020-08-10 07:44] LABS: Platelet Estimate ADEQ; White Blood Cell Scan OK (OK)
[2020-08-10 07:45] LABS: Blood Morphology Comment NOT SEEN (NOT SEEN)
--- NOTE | 2020-08-10 09:23 | OP ---
Date of Procedure: 08/09/2020 Surgeon: Tremaine Meredith MD Preoperative Diagnosis: End-stage renal disease. Postoperative Diagnosis: End-stage renal disease. Procedures: 1.Placement of a tunneled hemodialysis HemoSplit catheter. 2.Interpretation of fluoroscopy. 3.Right neck ultrasound. Estimated Blood Loss: Less than 5 cc. Anesthesia: Sedation plus local. Indications: This is a case of a female in need of tunneled hemodialysis catheter. The benefits, al ternatives, and risks were explained to her and family, which include, but not limited to infection, bleeding, damage to adjacent structures, anesthesia complication, hemothorax, pneumothorax, pericardi ac tamponade, DVTs, [place], and even . She also understands this may not relieve the symptoms. She might need more than one surgical intervention. She understood, signed a consent. She also underst ood that this is a temporary catheter and in fact, continue in the next few weeks, she should look fo r a peripheral vascular surgeon to place a more permanent device for hemodialysis. She also understa nds as soon as she is dialysis catheter, to come to our office to have her schedule to be removed. She understood. Description Of Procedure: Patient was brought to the operating room, placed in supine position. Ane sthesia was done without complication. Right neck and chest were prepped and draped in a sterile fas hion. The patient was placed in Trendelenburg position. Right neck ultrasound was done to localize the carotid and jugular vein. Jugular vein was found to be patent. At that moment, we have placed a n 18-gauge needle in the right internal jugular vein at the first attempt using ultrasound guidance. After that, I placed a guidewire through it, got into superior vena cava using fluoroscopy. A small incision was made in the right upper chest. We tunneled a HemoSplit catheter to meet that incision in the neck area. We have proceeded then to put dilators and the introducer catheter through the toshia dewire under fluoroscopy guidance. The guidewire was removed. Catheter was placed in. Introducer w as peeled off. This was done under fluoroscopy. Excellent backflow and inflow of the catheter, flus hed with heparinized solution and secured in placed with 3-0 nylon. Patient was brought back to norm al position. The patient tolerated the procedure well. Patient was sent to Recovery in stable condi tion. Patient will continue her stay in the hospital until the medical doctors decide the next step. JAMIE/QUIANA Voice ID: [id number] Report ID: [id number]
[2020-08-10 09:44] LABS: Hematocrit 21.8 % (36.0-45.0)
[2020-08-10] MEDS: DOCUSATE NA 100 MG CAP PO SCH ×2 (09:51→21:26)
[2020-08-10] MEDS: VITAMIN D 5,000 UNIT CAP PO SCH (09:51)
[2020-08-10] MEDS: SODIUM BICARB 325 MG TAB PO SCH ×4 (09:51→21:25)
[2020-08-10] MEDS: HEPARIN 5000 UNIT/ML 1 ML VIAL SQ SCH ×2 (09:52→21:28)
--- NOTE | 2020-08-10 12:56 | P.PN ---
Subjective Date of Service: 08/10/20 Chief Complaint: Malaise Subjective: Other (C/O pain in her lower back ,unable to sleep at night ,feels better after dialysis) Review of Systems Musculoskeletal: Neck Pain, Back Pain Neurological: Weakness Physical Examination - Vital Signs Temperature: 98.0 F Blood Pressure: 143/67 Pulse: 100 Respirations: 15 Pulse Ox (%): 100 - Physical Exam General: Alert, In no apparent distress HEENT: Atraumatic Neck: Supple Respiratory: Clear to auscultation bilaterally Cardiovascular: No edema Gastrointestinal: Normal bowel sounds Musculoskeletal: No erythema Integumentary: No rashes - Studies Microbiology Data (last 24 hrs): 08/07/20 13:25 Clean Catch Urine [place] Count - Final BETWEEN 10,000 & 100,000 CFU/ML 08/07/20 13:25 Clean Catch Urine - Final Escherichia Coli Assessment And Plan - Plan MARICRUZ needing dialysis anemia severe hyponatremia h/o hypercalcemia resolved lower back pain Plan : having 2nd dialysis treatment today monitor closely epogen for anemia dialyizing with lower sodium bath CT lumbar spine with out contrast for further eval Physician Review: Patient Assessed, Agree with Above Assessment and Plan Critical Care: No Time Spent Managing PTS Care (In Minutes): 30
[2020-08-10] MEDS: EPOETIN ALFA-EPBX 4,000 UNIT/ML VIAL SQ SCH ×2 (14:57→17:00)
--- NOTE | 2020-08-10 17:13 | RAD REPORT ---
EXAM DESCRIPTION: CT - Abdomen Pelvis W Contrast - 08/10/2020 4:39 pm CLINICAL HISTORY: BACK PAIN; RECTAL PAIN COMPARISON: No comparisons TECHNIQUE: Biphasic, helical CT imaging of the abdomen and pelvis was performed following 100 ml non -ionic IV contrast. Oral contrast was given. All CT scans are performed using dose optimization technique as appropriate and may include automated exposure control or mA/KV adjustment according to patient size. FINDINGS: Trace bilateral pleural effusions are present. No acute lung parenchymal process. No peric ardial thickening or effusion. Subtle nodularity of the liver capsule seen. No focal liver lesion is identifiable. No portal vein th rombus seen. No splenomegaly or focal splenic finding. No gallbladder or biliary tree abnormality see n. No mass in the pancreatic parenchyma identifiable. There is a trace amount of edema adjacent to the h ead of the pancreas. This is believed be part of an overall mild congestion or edema to the peritonea l fat. Specific pancreatitis etiology is doubtful. Patient was administered contrast. There is some faint opacification of the renal parenchyma far less than is typically seen. No solid mass of the parenchyma. No hydronephrosis or obstructing calculus. No urinary bladder abnormality seen. Normal for age, atrophic uterus is present. Ovaries are atrophic . Lobulated soft tissue attenuation that extends from the right adnexa to the right renal vein is bel ieved to be a tortuous and enlarged gonadal vein. Thrombus of this vein is not identifiable. Left анна norma vein is prominent to a lesser degree. No adrenal abnormalities. No stomach or small bowel acute finding. Prominent diverticulosis seen in a tortuous and redundant si gmoid colon. No colon mass or active process identifiable. No free air or pneumatosis. Small quantity of free fluid in the dependent portion of the pelvis. Mi nimal fluid retention in the subcutaneous fatty tissues. No hernia, mass or bulky lymphadenopathy. A separate CT lumbar spine examination not performed. Images were reconstructed to allow all 4 adequa te assessment. Lumbar bodies are normal in height. There is anterior subluxation of L3 on L4 approximately 5 mm. Deg enerative gas is present in all disc levels except L3-4. Lumbar central canal detail is inherently limited. L1-2 calcification along the posterior longitudina l ligament narrows the canal to 10 mm. Prominent facet degenerative change present at L2-3. Severe fa cet joint degenerative change, disc bulge and L3 subluxation changes cause central spinal stenosis do wn to 6 mm at the L3-4 level. No other level shows significant canal or foramen findings. IMPRESSION: CT abdomen and pelvis imaging shows no obstruction, free air or surgically emergent find ing. Nonacute findings detailed in the body of the report. Lumbar spine shows advanced degenerative change at L3-4 causing significant central spinal stenosis d own to 6 mm. No fracture or pathologic lumbar spine finding.
[2020-08-10] MEDS: TEMAZEPAM 15 MG CAP PO PRN (21:25)
[2020-08-10] MEDS: MORPHINE 2 MG/ML SYR IV PRN (23:19)
[2020-08-11] MEDS: MORPHINE 2 MG/ML SYR IV PRN (03:05)
[2020-08-11] MEDS: NA CHLORIDE 0.9% 1,000 ML IV SCH ×2 (05:12→08:45)
[2020-08-11] MEDS: SODIUM BICARB 325 MG TAB PO SCH ×4 (08:44→20:29)
[2020-08-11] MEDS: VITAMIN D 5,000 UNIT CAP PO SCH (08:44)
[2020-08-11] MEDS: HEPARIN 5000 UNIT/ML 1 ML VIAL SQ SCH ×2 (08:45→20:30)
[2020-08-11] MEDS: DOCUSATE NA 100 MG CAP PO SCH ×2 (08:45→20:29)
--- NOTE | 2020-08-11 13:40 | P.PN ---
Subjective Date of Service: 08/08/20 Subjective: No new changes, No C/O voiced, Improving Patient still confused. She has difficulty with her food. She appears to be anorexic. She appears to just babble repeatedly and closes are eyes. Will probably proceed with hemodialysis. Review of Systems 10-point ROS is otherwise unremarkable Physical Examination - Vital Signs Temperature: 97.3 F Blood Pressure: 149/67 Pulse: 95 Respirations: 16 Pulse Ox (%): 96 - Physical Exam General: Alert, In no apparent distress, Oriented x3 Respiratory: Diminished, Crackles/rales Cardiovascular: Regular rate/rhythm, Normal S1 S2, No murmurs Gastrointestinal: Normal bowel sounds, Soft and benign, Non-distended, No tenderness Musculoskeletal: No clubbing, No tenderness, Swelling Integumentary: No rashes Neurological: Normal speech, Normal tone, Normal affect Lymphatics: No axilla or inguinal lymphadenopathy - Studies Medications List Reviewed: Yes Assessment & Plan - Problems (Diagnosis) (1) Hyponatremia Current Visit: Yes Status: Acute (2) MARICRUZ (acute kidney injury) Current Visit: Yes Status: Acute (3) ESRD (end stage renal disease) Current Visit: Yes Status: Acute (4) Metabolic acidosis Current Visit: Yes Status: Acute (5) HTN (hypertension) Current Visit: Yes Status: Acute (6) Uremic syndrome Current Visit: Yes Status: Acute (7) Atrial fibrillation Current Visit: Yes Status: Acute - Plan Plan: Continue with plan of care as mentioned below 1. Continue with saline 2. Possibly transfuse if okay with nephrology 3. Will Consult general surgery and arrange for hemodialysis. Will try to arrange for outpatient hemodialysis as well 4. Continue slowly correcting sodium with saline 5. we will continue to do neuro checks as well 6. physical therapy evaluation 7. may try medication for neuropathy-monitor dosing if we will start because of the renal failure 8. Monitor hemoglobin going forward 9. GI and DVT prophylaxis Discharge Plan: Home Plan to discharge in: Greater than 2 days - Advance Directives Does patient have a Living Will: No Does patient have a Durable POA for Healthcare: No - Code Status/Comfort Care Code Status: Full Code Physician Review: Patient Assessed, Agree with Above Assessment and Plan Critical Care: No Time Spent Managing PTS Care (In Minutes): 35
--- NOTE | 2020-08-11 16:00 | P.PN ---
Subjective Date of Service: 08/09/20 Subjective: No new changes, No C/O voiced, Improving Patient was dialyzed today. She is sleeping at this time. She is arousable and she states she is feeling better and thinking more clearly. Review of Systems 10-point ROS is otherwise unremarkable Physical Examination - Vital Signs Temperature: 97.3 F Blood Pressure: 149/67 Pulse: 95 Respirations: 16 Pulse Ox (%): 96 - Physical Exam General: Alert, In no apparent distress, Oriented x3 Respiratory: Diminished, Crackles/rales Cardiovascular: Regular rate/rhythm, Normal S1 S2, Systolic murmur Gastrointestinal: Normal bowel sounds, Soft and benign, Non-distended, No tenderness Musculoskeletal: No clubbing, Swelling Neurological: Cranial nerves 3-12 intact, Abnormal strength, Abnormal sensation - Studies Medications List Reviewed: Yes Assessment & Plan - Problems (Diagnosis) (1) Hyponatremia Current Visit: Yes Status: Acute (2) MARICRUZ (acute kidney injury) Current Visit: Yes Status: Acute (3) ESRD (end stage renal disease) Current Visit: Yes Status: Acute (4) Metabolic acidosis Current Visit: Yes Status: Acute (5) HTN (hypertension) Current Visit: Yes Status: Acute (6) Uremic syndrome Current Visit: Yes Status: Acute (7) Atrial fibrillation Current Visit: Yes Status: Acute (8) Anemia due to acute blood loss Current Visit: Yes Status: Acute - Plan Plan: Continue with plan of care as mentioned below 1. May Hep-Lock IV since sodium is improving 2. s/p transfusion of 1 unit of packed red blood cells 3. Arranging for hemodialysis. Will try to arrange for outpatient hemodialysis; check hepatitis profile 4. Physical therapy evaluation 5. Lyrica 50mg daily 6. Monitor hemoglobin going forward 7. GI and DVT prophylaxis Discharge Plan: Home Plan to discharge in: Greater than 2 days - Advance Directives Does patient have a Living Will: No Does patient have a Durable POA for Healthcare: No - Code Status/Comfort Care Code Status: Full Code Physician Review: Patient Assessed, Agree with Above Assessment and Plan Critical Care: No Time Spent Managing PTS Care (In Minutes): 35
--- NOTE | 2020-08-11 16:05 | P.PN ---
Subjective Date of Service: 08/10/20 Patient continues to do well with no new complaints. Patient is slowly improving. Neurologically she is much better. She is eating better. Improving with the dialysis. Review of Systems 10-point ROS is otherwise unremarkable Physical Examination - Vital Signs Temperature: 97.3 F Blood Pressure: 149/67 Pulse: 95 Respirations: 16 Pulse Ox (%): 96 - Physical Exam General: Alert, In no apparent distress, Oriented x3 Respiratory: Clear to auscultation bilaterally, Normal air movement Cardiovascular: Regular rate/rhythm, Normal S1 S2, Systolic murmur Gastrointestinal: Normal bowel sounds, Soft and benign, Non-distended, No tenderness Musculoskeletal: No clubbing, No swelling, No tenderness Neurological: Abnormal sensation - Studies Medications List Reviewed: Yes Assessment & Plan - Problems (Diagnosis) (1) Hyponatremia Current Visit: Yes Status: Acute (2) MARICRUZ (acute kidney injury) Current Visit: Yes Status: Acute (3) ESRD (end stage renal disease) Current Visit: Yes Status: Acute (4) Metabolic acidosis Current Visit: Yes Status: Acute (5) HTN (hypertension) Current Visit: Yes Status: Acute (6) Uremic syndrome Current Visit: Yes Status: Acute (7) Atrial fibrillation Current Visit: Yes Status: Acute (8) Anemia due to acute blood loss Current Visit: Yes Status: Acute - Plan Plan: Continue with plan of care as mentioned below 1. May Hep-Lock IV since sodium is improving 2. s/p transfusion of 1 unit of packed red blood cells 3. Arranging for hemodialysis. Will try to arrange for outpatient hemodialysis; check hepatitis profile 4. Physical therapy evaluation 5. Lyrica 50mg daily 6. Monitor hemoglobin going forward 7. GI and DVT prophylaxis Discharge Plan: Home Plan to discharge in: Greater than 2 days - Advance Directives Does patient have a Living Will: No Does patient have a Durable POA for Healthcare: No - Code Status/Comfort Care Code Status: Full Code Physician Review: Patient Assessed, Agree with Above Assessment and Plan Critical Care: No Time Spent Managing PTS Care (In Minutes): 35
[2020-08-11] MEDS ORDERED: CEFTRIAXONE 1 GM/NS 50 ML 1 GM/50 ML BAG IV ONE (16:07)
--- NOTE | 2020-08-11 16:10 | P.PN ---
Subjective Date of Service: 08/11/20 Imaging studies did not reveal a substantial abnormality except for some stenosis around L3. Patient otherwise is improving. Patient was anemic. Repeat H&H. Sodium level has improved. Repeat sodium level as well. Continue with medication for neuropathy. Review of Systems 10-point ROS is otherwise unremarkable Physical Examination - Vital Signs Temperature: 97.3 F Blood Pressure: 149/67 Pulse: 95 Respirations: 16 Pulse Ox (%): 96 - Physical Exam General: Alert, In no apparent distress, Oriented x3 Respiratory: Clear to auscultation bilaterally, Normal air movement Cardiovascular: Regular rate/rhythm, Normal S1 S2, No murmurs Gastrointestinal: Normal bowel sounds, Soft and benign, Non-distended, No tenderness Musculoskeletal: No clubbing, No swelling Integumentary: No rashes Neurological: Cranial nerves 3-12 intact, Abnormal sensation - Studies Medications List Reviewed: Yes Assessment & Plan - Problems (Diagnosis) (1) Hyponatremia Current Visit: Yes Status: Acute (2) MARICRUZ (acute kidney injury) Current Visit: Yes Status: Acute (3) ESRD (end stage renal disease) Current Visit: Yes Status: Acute (4) Metabolic acidosis Current Visit: Yes Status: Acute (5) HTN (hypertension) Current Visit: Yes Status: Acute (6) Uremic syndrome Current Visit: Yes Status: Acute (7) Atrial fibrillation Current Visit: Yes Status: Acute (8) Anemia due to acute blood loss Current Visit: Yes Status: Acute - Plan Plan: Continue with plan of care as mentioned below 1. Sodium is improved. Continue with monitoring labs closely. Hep-Lock IV 2. May repeat another unit of packed red blood cells if hemoglobin is not improving 3. Continue hemodialysis per Nephrology 4. Continue medication for neuropathy and will monitor neurologic status 5. Strict blood sugar and blood pressure control 6. GI and DVT prophylaxis Discharge Plan: Home Plan to discharge in: Greater than 2 days - Advance Directives Does patient have a Living Will: No Does patient have a Durable POA for Healthcare: No - Code Status/Comfort Care Code Status: Full Code Physician Review: Patient Assessed, Agree with Above Assessment and Plan Critical Care: No Time Spent Managing PTS Care (In Minutes): 35
[2020-08-11 16:27] LABS: Potassium 3.6 mmol/L (3.5-5.1)
[2020-08-11 16:29] LABS: Basophils % 0.6 % (0-1.3); Hematocrit 19.3 % (36.0-45.0); RBC Red Blood Cell Count 2.13 M/uL (3.86-4.86)
[2020-08-11] MEDS ORDERED: CEFTRIAXONE/SWI 1gm 1 GM/10 ML SYR IV ONE (17:00)
[2020-08-11] MEDS ORDERED: NA CHLORIDE 0.9% 250 ML IV ONE (17:44)
[2020-08-11] MEDS ORDERED: PREGABALIN 50 MG CAP PO SCH (18:00)
[2020-08-11 19:39] LABS: HBsAG Nonreactive (Nonreactive)
[2020-08-11] MEDS: FUROSEMIDE 40 MG/4 ML VIAL IV SCH (21:28)
[2020-08-11] MEDS ORDERED: NA CHLORIDE 0.9% 250 ML ONE (21:39)
--- NOTE | 2020-08-11 23:58 | WHHP ---
Date of Admission: 08/07/2020 Subjective: Patient is seen at the bedside. She had second dialysis treatment today which she tracy ated well. Currently complaining of some intermittent neuropathy symptoms in her hands. Otherwise, denies chest pain, shortness of breath, nausea, vomiting, or diarrhea. Objective: Vital Signs: Blood pressure 149/67, pulse 95, temperature 97.3. I's and O's; 2350 in, 1 650 out. General: Disheveled appearance, thin. Heart: Regular rate and rhythm. No murmurs or gallops. Lungs: Clear to auscultation. Abdomen: Soft. Extremities: With no significant edema. Laboratory Data: Hemoglobin 7.7, hematocrit 21.8. Serum chemistry; sodium 127, potassium 3.3, chlor natasha 98, CO2 is 21, BUN 46, creatinine 4.05, glucose 68, albumin is 2.6. The patient's complement lev els were noted to be on the low end of normal for both C3 and C4. KASIA, ANCA antibodies, and GBM are pending. Previous hepatitis B panels are pending. Impression: 1.Acute kidney injury, workup underway, however in the setting of necessitating renal placement ther apy. 2.Hyponatremia. 3.Hypokalemia. 4.Neuropathy like symptoms. Plan: The patient will continue on hemodialysis for renal replacement. We will continue MARICRUZ workup by following up the serologies. The patient may need a renal biopsy in the in and outpatient setting . We will defer to Dr. Damon in that regard. The patient does have neuropathy symptoms. The karyn ent may need a neurologic panel sent. We will defer to primary team. Avoid NSAIDs, avoid contrast. We will contin ue to follow. /QUIANA Voice ID: [id number]
[2020-08-12] MEDS: FUROSEMIDE 40 MG/4 ML VIAL IV SCH (01:47)
[2020-08-12 04:13] LABS: Absolute Lymphocytes (CBC) 1.5 K/uL (0.7-4.9); Basophils % 0.9 % (0-1.3); Hematocrit 26.7 % (36.0-45.0); Lymphocytes % 15.2 % (15.3-44.8); RBC Red Blood Cell Count 2.91 M/uL (3.86-4.86)
[2020-08-12 04:17] LABS: Protime INR 0.9
[2020-08-12 04:32] LABS: Ferritin 582.7 ng/mL (8-388); Magnesium 2.1 mg/dL (1.8-2.4); Phosphorus 2.2 mg/dL (2.5-4.9); Potassium 3.6 mmol/L (3.5-5.1)
[2020-08-12] MEDS: PREGABALIN 50 MG CAP PO SCH ×2 (05:01→17:02)
[2020-08-12 05:09] LABS: Folic Acid, (Folate) 6.8 ng/mL (3.1-17.5)
[2020-08-12] MEDS: SODIUM BICARB 325 MG TAB PO SCH ×4 (08:21→21:24)
[2020-08-12] MEDS: VITAMIN D 5,000 UNIT CAP PO SCH (08:23)
[2020-08-12] MEDS: HEPARIN 5000 UNIT/ML 1 ML VIAL SQ SCH ×2 (08:24→21:26)
[2020-08-12] MEDS: DOCUSATE NA 100 MG CAP PO SCH ×2 (08:24→21:23)
[2020-08-12] MEDS ORDERED: CEFTRIAXONE 1 GM/NS 50 ML 1 GM/50 ML BAG IV SCH (09:00)
--- NOTE | 2020-08-12 14:01 | P.PN ---
Subjective Date of Service: 08/12/20 Patient has some numbness and tingling in the upper extremities. May do a CT of the C-spine in the morning to further evaluate.Otherwise, patient is doing well clinically. Patient's mentation has improved dramatically with correction of sodium and dialysis. Continue with current plan of care at this time. Review of Systems 10-point ROS is otherwise unremarkable Physical Examination - Vital Signs Temperature: 97.9 F Blood Pressure: 136/63 Pulse: 100 Respirations: 16 Pulse Ox (%): 92 - Physical Exam General: Alert, In no apparent distress, Oriented x3 Respiratory: Clear to auscultation bilaterally, Normal air movement Cardiovascular: Regular rate/rhythm, Normal S1 S2, Systolic murmur Gastrointestinal: Normal bowel sounds, Soft and benign, Non-distended, No tenderness Musculoskeletal: No clubbing, No swelling - Studies Medications List Reviewed: Yes Assessment & Plan - Problems (Diagnosis) (1) Hyponatremia Current Visit: Yes Status: Acute (2) MARICRUZ (acute kidney injury) Current Visit: Yes Status: Acute (3) ESRD (end stage renal disease) Current Visit: Yes Status: Acute (4) Metabolic acidosis Current Visit: Yes Status: Acute (5) HTN (hypertension) Current Visit: Yes Status: Acute (6) Uremic syndrome Current Visit: Yes Status: Acute (7) Atrial fibrillation Current Visit: Yes Status: Acute (8) Anemia due to acute blood loss Current Visit: Yes Status: Acute (9) Lumbar spinal stenosis Current Visit: Yes Status: Acute (10) Neuropathy of both upper extremities Current Visit: Yes Status: Acute - Plan Plan: Continue with plan of care as mentioned below 1. Sodium is improved. Continue with monitoring labs closely. Hep-Lock IV 2. Hemoglobin is stable. Reticulocyte count is elevated and if we see any active bleeding then we need to get GI consulted 3. Continue hemodialysis per Nephrology 4. Continue medication for neuropathy and will monitor neurologic status; will get cervical spine MRI in the morning 5. Strict blood sugar and blood pressure control 6. GI and DVT prophylaxis Discharge Plan: Home Plan to discharge in: Greater than 2 days - Advance Directives Does patient have a Living Will: No Does patient have a Durable POA for Healthcare: No - Code Status/Comfort Care Code Status: Full Code Physician Review: Patient Assessed, Agree with Above Assessment and Plan Critical Care: No Time Spent Managing PTS Care (In Minutes): 35
[2020-08-12] MEDS ORDERED: CEFTRIAXONE/SWI 1gm 1 GM/10 ML SYR IV SCH (17:00)
[2020-08-12] MEDS: TEMAZEPAM 15 MG CAP PO PRN (21:30)
[2020-08-13 06:29] LABS: Absolute Lymphocytes (CBC) 1.5 K/uL (0.7-4.9); Basophils % 0.6 % (0-1.3); Hematocrit 29.6 % (36.0-45.0); Lymphocytes % 13.2 % (15.3-44.8); MPV 7.5 fL (7.6-11.3); RBC Red Blood Cell Count 3.22 M/uL (3.86-4.86)
[2020-08-13] MEDS: PREGABALIN 50 MG CAP PO SCH ×2 (06:32→17:53)
[2020-08-13] MEDS ORDERED: LORazepam 2 MG/ML VIAL IV PRN (06:37)
[2020-08-13 06:54] LABS: Magnesium 2.1 mg/dL (1.8-2.4); Potassium 3.7 mmol/L (3.5-5.1); Thyroid Stimulating Hormone 2.92 uIU/mL (0.360-3.740)
[2020-08-13] MEDS: SODIUM BICARB 325 MG TAB PO SCH ×3 (08:09→17:53)
[2020-08-13] MEDS: HEPARIN 5000 UNIT/ML 1 ML VIAL SQ SCH (08:09)
[2020-08-13] MEDS: VITAMIN D 5,000 UNIT CAP PO SCH (08:09)
[2020-08-13] MEDS: DOCUSATE NA 100 MG CAP PO SCH (08:09)
--- NOTE | 2020-08-13 08:12 | P.PN ---
Subjective Date of Service: 08/13/20 Primary Care Provider: Addie Mehta NP; Nephrology-Dr. Damon Chief Complaint: Malaise Subjective: Improving, Doing well Physical Examination - Vital Signs Temperature: 97.9 F Blood Pressure: 136/63 Pulse: 100 Respirations: 16 Pulse Ox (%): 92 - Physical Exam General: Alert, In no apparent distress, Oriented x3, Cooperative HEENT: Atraumatic Neck: Supple Respiratory: Clear to auscultation bilaterally, Normal air movement Cardiovascular: Normal pulses, Regular rate/rhythm Gastrointestinal: Normal bowel sounds, No tenderness, No masses, No rebound, No guarding Neurological: Normal speech, Normal strength at 5/5 x4 extr, Normal tone, Normal affect - Studies Medications List Reviewed: Yes Assessment & Plan Discharge Plan: Home Plan to discharge in: 24 Hours Physician Review Additional Text: Impression: Hyponatremia, hypokalemia with worsening acute on chronic renal disease stage 5 now end-stage renal disease requiring hemodialysis Hypertension Neuropathy to the upper extremities with history of cervical disc disease with prior surgery Atrial fibrillation Anemia of chronic disease with possible blood loss status post transfusion UTI, urine culture positive for E coli Plan: Hyponatremia, hypokalemia with worsening acute on chronic renal disease stage 5 now end-stage renal disease requiring hemodialysis: Dialysis catheter in place. Continue with dialysis as directed by nephrology. Awaiting approval for outpatient dialysis chair. Once approved possible discharge can be addressed. Hypertension: Restart metoprolol. Hold Norvasc. Will continue to monitor and adjust appropriately. Neuropathy to the upper extremities with history of cervical disc disease with prior surgery: Patient reports prior history of surgery. Will obtain MRI if compatible. Patient sees specialists out at [id number]. If MRI cannot be done this can be further addressed as an outpatient. Continue with medication Lyrica. Atrial fibrillation: Restart metoprolol. Not on chronic anti coagulation therapy Anemia of chronic disease with possible blood loss status post transfusion: Hemoglobin stable. Patient has received transfusion. Patient also on Epogen. UTI, urine culture positive for E coli: Will discontinue IV antibiotic therapy and switched to Augmentin. 1 more day of treatment to complete antibiotic therapy. Time Spent Managing Pts Care (In Minutes): 55
[2020-08-13] MEDS ORDERED: METOPROLOL TAR 25 MG TAB PO SCH (09:00)
[2020-08-13] MEDS ORDERED: ASPIRIN EC 81 MG TAB PO SCH (09:00)
[2020-08-13] MEDS ORDERED: AMOX/CLAV 200 MG/5 ML ORAL SUSP (100 ML BTL) PO SCH (09:00)
[2020-08-13] MEDS ORDERED: METOPROLOL TAR 25 MG TAB ONE (09:08)
[2020-08-13] MEDS ORDERED: ASPIRIN EC 81 MG TAB PO ONE (09:08)
[2020-08-13 09:09] LABS: Blood Morphology Comment NOT SEEN (NOT SEEN); Platelet Estimate ADEQ
[2020-08-13] MEDS ORDERED: AMOX/K CLAV 500 MG TAB ONE (09:09)
[2020-08-13 09:40] VITALS: O2SAT 95
[2020-08-13 10:25] VITALS: BP 126/60
[2020-08-13 12:05] VITALS: TEMP 97.5
--- NOTE | 2020-08-13 13:23 | P.DS ---
Admission Date: 08/07/20 Discharge Date: 08/13/20 Primary Care Provider: Addie Mehta NP; Nephrology-Dr. Damon Discharge Condition: GOOD Reason for Admission: Malaise Consultations: Nephrology-Dr. Damon Surgery-Dr. Meredith Procedures: Renal US: COMPARISON: Renal Ultrasound-Complete dated 06/21/2020 FINDINGS: Kidneys are stable in size since the short interval June 21 examin ation. Renal cortical thickness and echogenicity are normal. No hydronephrosis or suspicious renal mass. No bladder wall thickening or mass. No intraluminal stone or mass. IMPRESSION: No hydronephrosis or suspicious renal mass. No other significant findings. No identifiable change from June 21. CT Scan: FINDINGS: Trace bilateral pleural effusions are present. No acute lung parenchymal process. No pericardial thickening or effusion. Subtle nodularity of the liver capsule seen. No focal liver lesion is identifiable. No portal vein thrombus seen. No splenomegaly or focal splenic finding. No gallbladder or biliary tree abnormality seen. No mass in the pancreatic parenchyma identifiable. There is a trace amount of edema adjacent to the head of the pancreas. This is believed be part of an overall mild congestion or edema to the peritoneal fat. Specific pancreatitis etiology is doubtful. Patient was administered contrast. There is some faint opacification of the renal parenchyma far less than is typically seen. No solid mass of the parenchyma. No hydronephrosis or obstructing calculus. No urinary bladder abnormality seen. Normal for age, atrophic uterus is present. Ovaries are atrophic. Lobulated soft tissue attenuation that extends from the right adnexa to the right renal vein is believed to be a tortuous and enlarged gonadal vein. Thrombus of this vein is not identifiable. Left gonadal vein is prominent to a lesser degree. No adrenal abnormalities. No stomach or small bowel acute finding. Prominent diverticulosis seen in a tortuous and redundant sigmoid colon. No colon mass or active process identifiable. No free air or pneumatosis. Small quantity of free fluid in the dependent portion of the pelvis. Minimal fluid retention in the subcutaneous fatty tissues. No hernia, mass or bulky lymphadenopathy. A separate CT lumbar spine examination not performed. Images were reconstructed to allow all 4 adequate assessment. Lumbar bodies are normal in height. There is anterior subluxation of L3 on L4 approximately 5 mm. Degenerative gas is present in all disc levels except L3-4. Lumbar central canal detail is inherently limited. L1-2 calcification along the posterior longitudinal ligament narrows the canal to 10 mm. Prominent facet degenerative change present at L2-3. Severe facet joint degenerative change, disc bulge and L3 subluxation changes cause central spinal stenosis down to 6 mm at the L3-4 level. No other level shows significant canal or foramen findings. IMPRESSION: CT abdomen and pelvis imaging shows no obstruction, free air or surgically emergent finding. Nonacute findings detailed in the body of the report. Lumbar spine shows advanced degenerative change at L3-4 causing significant central spinal stenosis down to 6 mm. No fracture or pathologic lumbar spine finding. Surgery: Date of Procedure: 08/09/2020 Surgeon: Tremaine Meredith MD Preoperative Diagnosis: End-stage renal disease. Postoperative Diagnosis: End-stage renal disease. Procedures: 1. Placement of a tunneled hemodialysis HemoSplit catheter. 2. Interpretation of fluoroscopy. 3. Right neck ultrasound. Estimated Blood Loss: Less than 5 cc. Anesthesia: Sedation plus local. 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 Patient found to have acute on chronic renal failure with hyponatremia and anemia. Patient was admitted to ICU for further evaluation and treatment. Hospital Course: Patient presented with fatigue, weight loss. Patient found to have severe hyponatremia, hypokalemia, metabolic acidosis an worsening acute on chronic renal failure stage 5. During the course of her stay patient was evaluated by nephrology. Patient was admitted to ICU to further address her condition. Her hyponatremia and hypokalemia improved. Renal function did not return to baseline. Nephrology recommended to initiate hemodialysis. Patient now with end-stage renal disease. Surgery was consulted for placement of tunneled dialysis catheter. Patient tolerated procedure well. Since that time patient has received dialysis with stability of hyponatremia and hypokalemia. Arrangeme nts for outpatient hemodialysis have been arranged. At discharge patient will continue with hemodialysis every Thursday, Thursday and Thursday. She will start Thursday08/15/2020. Education on end-stage renal disease/dialysis will be provided. At discharge she will continue with sodium bicarb 650 mg 4 times a day, vitamin-D 5000 units daily. Patient will continue with a 1500 cc per day fluid restriction and low-salt renal diet. Patient will follow up with nephrology within 1 week. Recommend to recheck lab-BMP at that time. Recommend no further use of nonsteroidal anti-inflammatories. Future medications will need to be renally dose. Patient with hypertension. Medications have been adjusted. Patient no longer on Norvasc. Patient remains on metoprolol. At discharge she will continue with metoprolol 25 mg 1 pill twice daily. Recommend to maintain blood pressure less 150/80. Further adjustment can be done by her PCP or nephrology. Patient with history of atrial fibrillation. Patient remains in normal sinus rhythm. Patient not on chronic anti coagulation therapy. At discharge patient may follow up with cardiology as an outpatient to further monitor and address. Patient with anemia. This was likely of chronic renal disease. Patient was severely anemic requiring transfusion. Patient has done well since posttransfusion. No evidence of GI bleed at this time. Recommend to establish care with GI as an outpatient for EGD and colonoscopy to further address. Patient was found to have UTI. Urine culture was positive for E coli. Patient was treated with IV antibiotic therapy. This was switched to oral therapy. At discharge she will continue with Augmentin 500 mg daily. She will complete antibiotic therapy tomorrow. UTI prevention will be provided. If patient with neuropathy to the upper extremities. Patient with history of cervical disc disease with prior surgery. 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 Patient is seen by orthopedics in [place]. Patient was placed on Lyrica 50 mg twice daily. Patient may continue with this medication. Recommend follow up with orthopedics to further monitor and address. Patient would benefit with pain management evaluation as an outpatient to further address her pain and neuropathy. Vital Signs/Physical Exam: Temp Pulse Resp BP Pulse Ox 97.5 F 105 H 20 126/60 94 08/13/20 12:00 08/13/20 12:00 08/13/20 12:00 08/13/20 12:00 08/13/20 12:00 General: Alert, In no apparent distress, Oriented x3, Cooperative HEENT: Atraumatic Neck: Supple Respiratory: Clear to auscultation bilaterally, Normal air movement Cardiovascular: Normal pulses, Regular rate/rhythm Gastrointestinal: Normal bowel sounds, Soft and benign, Non-distended, No tenderness, No masses, No rebound, No guarding Musculoskeletal: No erythema, No tenderness, No warmth Integumentary: No tenderness/swelling, No erythema, No warmth, No cyanosis Neurological: Normal speech, Normal strength at 5/5 x4 extr, Normal tone, Normal affect Laboratory Data at Discharge: WBC 11.2 K/uL (4.3-10.9) H D 08/13/20 05:57 Hgb 10.3 g/dL (12.0-15.0) L 08/13/20 05:57 Hct 29.6 % (36.0-45.0) L 08/13/20 05:57 Plt Count 323 K/uL (152-406) 08/13/20 05:57 PT 10.6 SECONDS (9.5-12.5) 08/12/20 03:56 INR 0.90 08/12/20 03:56 APTT 28.9 SECONDS (24.3-36.9) 08/12/20 03:56 Sodium 132 mmol/L (136-145) L 08/13/20 05:57 Potassium 3.7 mmol/L (3.5-5.1) 08/13/20 05:57 BUN 19 mg/dL (7-18) H 08/13/20 05:57 Creatinine 3.67 mg/dL (0.55-1.3) H D 08/13/20 05:57 Glucose 71 mg/dL (74-106) L 08/13/20 05:57 Uric Acid 5.1 mg/dL (2.6-6.0) D 08/08/20 04:50 Phosphorus 3.0 mg/dL (2.5-4.9) 08/13/20 05:57 Magnesium 2.1 mg/dL (1.8-2.4) 08/13/20 05:57 Total Bilirubin 0.3 mg/dL (0.2-1.0) 08/09/20 04:33 AST 31 U/L (15-37) 08/09/20 04:33 ALT 31 U/L (12-78) 08/09/20 04:33 Alkaline Phosphatase 57 U/L (45-117) 08/09/20 04:33 Home Medications: Albuterol Sulfate [Albuterol Sulfate Hfa] 2 puff IH Q6HP PRN 06/20/20 Aspirin [Aspirin EC 81 MG] 81 mg PO DAILY #30 tablet. 06/26/20 Amox/Clavulanate [Augmentin 500-125 mg Tab*] 500 mg PO DAILY 5 PM #1 tab 08/13/20 Cholecalciferol (Vitamin D3) [Vitamin D 5,000 IU Cap*] 5,000 unit PO DAILY #30 cap 08/13/20 Docusate [Colace Cap*] 100 mg PO BID PRN #60 cap 08/13/20 Metoprolol Tartrate [Lopressor*] 25 mg PO BID #60 tab 08/13/20 Na Bicarb Tab [Sodium Bicarb 325 MG Tab*] 650 mg PO QID #120 tab 08/13/20 Pregabalin [Lyrica*] 50 mg PO 0600,1800 #20 cap 08/13/20 New Medications: Amox/Clavulanate [Augmentin 500-125 mg Tab*] 500 mg PO DAILY 5 PM #1 tab Docusate [Colace Cap*] 100 mg PO BID PRN #60 cap PRN Reason: Constipation Metoprolol Tartrate [Lopressor*] 25 mg PO BID #60 tab Pregabalin [Lyrica*] 50 mg PO 0600,1800 #20 cap Na Bicarb Tab [Sodium Bicarb 325 MG Tab*] 650 mg PO QID #120 tab Cholecalciferol (Vitamin D3) [Vitamin D 5,000 IU Cap*] 5,000 unit PO DAILY #30 cap Patient Discharge Instructions: 1. Recommend follow up with her PCP in 1 week to follow up this hospitalization. 2. Patient presented with fatigue, weight loss. Patient found to have severe hyponatremia, hypokalemia, metabolic acidosis an worsening acute on chronic renal failure stage 5. During the course of her stay patient was evaluated by nephrology. Patient was admitted to ICU to further address her condition. Her hyponatremia and hypokalemia improved. Renal function did not return to baseline. Nephrology recommended to initiate hemodialysis. Patient now with end-stage renal disease. Surgery was consulted for placement of tunneled dialysis catheter. Patient tolerated procedure well. Since that time patient has received dialysis with stability of hyponatremia and hypokalemia. Arrangements for outpatient hemodialysis have been arranged. At discharge patient will continue with hemodialysis every Thursday, Thursday and Thursday. She will start Thursday08/15/2020. Education on end-stage renal disease/dialysis will be provided. At discharge she will continue with sodium bicarb 650 mg 4 times a day, vitamin-D 5000 units daily. Patient will continue with a 1500 cc per day fluid restriction and low-salt renal diet. Patient will follow up with nephrology within 1 week. Recommend to recheck lab-BMP at that time. Recommend no further use of nonsteroidal anti-inflammatories. Future medications will need to be renally dose. 3. Patient with hypertension. Medications have been adjusted. Patient no longer on Norvasc. Patient remains on metoprolol. At discharge she will continue with metoprolol 25 mg 1 pill twice daily. Recommend to maintain blood pressure less 150/80. Further adjustment can be done by her PCP or nephrology. 4. Patient with history of atrial fibrillation. Patient remains in normal sinus rhythm. Patient not on chronic anti coagulation therapy. At discharge patient may follow up with cardiology as an outpatient to further monitor and address. 5. Patient with anemia. This was likely of chronic renal disease. Patient was severely anemic requiring transfusion. Patient has done well since posttransfusion. No evidence of GI bleed at this time. Recommend to establish care with GI as an outpatient for EGD and colonoscopy to further address. 6. Patient was found to have UTI. Urine culture was positive for E coli. Patient was treated with IV antibiotic therapy. This was switched to oral therapy. At discharge she will continue with Augmentin 500 mg daily. She will complete antibiotic therapy tomorrow. UTI prevention will be provided. 7. If patient with neuropathy to the upper extremities. Patient with history of cervical disc disease with prior surgery. 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 Patient is seen by orthopedics in [place]. Patient was placed on Lyrica 50 mg twice daily. Patient may continue with this medication. Recommend follow up with orthopedics to further monitor and address. Patient would benefit with pain management evaluation as an outpatient to further address her pain and neuropathy. Diet: Renal Activity: Fall precautions Time spent managing pt's care (in minutes): 55
[2020-08-13] MEDS: EPOETIN ALFA-EPBX 4,000 UNIT/ML VIAL SQ SCH (16:22)
[2020-08-13] MEDS ORDERED: AMOX/K CLAV 500 MG TAB PO SCH (17:00)
--- NOTE | 2020-08-13 22:06 | P.PN ---
Date of Service: 08/13/20 Vital Signs Temp Pulse Resp BP Pulse Ox 97.5 F 105 H 20 126/60 94 08/13/20 12:00 08/13/20 12:00 08/13/20 12:00 08/13/20 12:00 08/13/20 12:00 Microbiology Results 08/07/20 13:25 Clean Catch Urine [place] Count - Final BETWEEN 10,000 & 100,000 CFU/ML 08/07/20 13:25 Clean Catch Urine - Final Escherichia Coli Assessment/ Plan: Nephrology Feeling better with the blood transfusion. CPS stable without CP or SOB. No acute events overnight. Vitals, medications, blood work and imaging reviewed in the chart. General: In no apparent distress, Oriented x3, Cooperative HEENT: Atraumatic Neck: Supple Respiratory: Clear to auscultation bilaterally Cardiovascular: No edema, Regular rate/rhythm Gastrointestinal: Soft and benign, Non-distended Musculoskeletal: No clubbing, No contractures Integumentary: No rashes, No cyanosis Neurological: Normal speech Laboratory Data (last 24 hrs) 08/07/20 12:30: Sodium 107 L*, Potassium 5.0, BUN 87 H, Creatinine 6.14 H*, Glucose 92, Magnesium 4.3 H* D 08/07/20 12:30: WBC 10.5, Hgb 7.5 L*, Hct 20.8 L*, Plt Count 451 H Imagings Data: EXAM DESCRIPTION: RADChest Single View08/07/2020 12:49 pm CLINICAL HISTORY: Cough COMPARISON: June 2020 FINDINGS: Calcified granuloma left lung The lungs appear clear of acute infiltrate. The heart is mildly to moderately enlarged IMPRESSION: No acute abnormalities displayed EXAM DESCRIPTION: US - Renal Ultrasound-Complete - 08/07/2020 3:11 pm CLINICAL HISTORY: MARICRUZ COMPARISON: Renal Ultrasound-Complete dated 06/21/2020 FINDINGS: Kidneys are stable in size since the short interval June 21 examination. Renal cortical thickness and echogenicity are normal. No hydron ephrosis or suspicious renal mass. No bladder wall thickening or mass. No intraluminal stone or mass. IMPRESSION: No hydronephrosis or suspicious renal mass. No other significant findings. No identifiable change from June 21. Conclusions/Impression: A/ MARICRUZ of unclear etiology Hyponatremia Hyperkalemia Acidosis CKD with proteinuria Anemia in chronic illness P/ Continue current POC and Medications Acute HD today. No NSAIDs. Hepatitis panel negative. AM labs. Daily weight. Case reviewed with Dr. Pennington.
== END 2020-08-13 19:00 | disposition home or self-care (01) | DRG 674 ==
LOC: ER 11:46 → ERHOLD 14:28 → 2ND 08-09 15:54
PROVIDERS: ADMIT Hospitalist; ATTEND Family Medicine
PROC: 30233N1 Transfusion of Nonautologous Red Blood Cells into Peripheral Vein, Percutaneous Approach (ICD-10-PCS; 2020-08-08)
PROC: 02HV33Z Insertion of Infusion Device into Superior Vena Cava, Percutaneous Approach (ICD-10-PCS; 2020-08-09)
PROC: 5A1D70Z Performance of Urinary Filtration, Intermittent, Less than 6 Hours Per Day (ICD-10-PCS; 2020-08-09)
PROC: 0JH63XZ Insertion of Tunneled Vascular Access Device into Chest Subcutaneous Tissue and Fascia, Percutaneous Approach (ICD-10-PCS; principal; 2020-08-09 07:30)
DX: N17.9 Acute kidney failure, unspecified (principal); E87.1 Hypo-osmolality and hyponatremia; E87.2 Acidosis; N39.0 Urinary tract infection, site not specified; R64 Cachexia; I12.0 Hypertensive chronic kidney disease with stage 5 chronic kidney disease or end stage renal disease; D62 Acute posthemorrhagic anemia; E87.5 Hyperkalemia; D63.8 Anemia in other chronic diseases classified elsewhere; B96.20 Unspecified Escherichia coli [E. coli] as the cause of diseases classified elsewhere; I25.10 Atherosclerotic heart disease of native coronary artery without angina pectoris; N18.6 End stage renal disease; I48.91 Unspecified atrial fibrillation; G47.00 Insomnia, unspecified; M54.5 Low back pain; E87.6 Hypokalemia; M48.061 Spinal stenosis, lumbar region without neurogenic claudication; G62.9 Polyneuropathy, unspecified; Z68.28 Body mass index [BMI] 28.0-28.9, adult; Z91.040 Latex allergy status; Z88.8 Allergy status to other drugs, medicaments and biological substances; Z96.652 Presence of left artificial knee joint; Z79.82 Long term (current) use of aspirin; Z88.1 Allergy status to other antibiotic agents; Z98.51 Tubal ligation status; Z91.018 Allergy to other foods; Z91.013 Allergy to seafood
CPT/HCPCS: 36415; 36430; 71045; 74177; 76000; 76770; 80048; 80053; 81001; 81003; 81015; 82550; 82570; 82607; 82728; 82746; 82947; 83520; 83540; 83605; 83735; 83880; 83930; 83935; 84100; 84300; 84439; 84443; 84550; 85014; 85018; 85025; 85027; 85044; 85610; 85730; 86021; 86038; 86160; 86317; 86704; 86850; 86900; 86901; 87077; 87086; 87088; 87186; 87340; 90935; 93005; 96360; 96361; 99285; C1752; J0690; J0696; J1644; J1940; J2250; J2270; J2704; J3010; J7030; J7050; J7120; P9016; Q5106; Q9967; U0003

== ENCOUNTER 2020-11-05 09:39 | Observation (INO) | payer OTHER, MEDICARE ==
--- OUTSIDE RECORDS SUMMARY | 2020-11-05 09:52 | XMS REPORT | Continuity of Care Document ---
:1945 Author Organization [facility] t Address [address] [place] [address] Care Team Providers Name Role Phone Unavailable [...] DA Active SV 2020-0 [facility] line 05-24 [place] [facility]: [facility] corn FA Active SV 2020-0 [facility] 05-[facility] latex DA Active SV 2020-0 [facility] 7- [place] 00:[facility]: [facility] nut - FA Active U 2020-0 [facility] unspecif 05-24 [place] [facility] 00:[facility] [...] 6-25 [facility] [place] latex DA Active SV 2019-0 [facility] 6[facility] [place] Medications This patient has no known medications. [...] measure: (test code = GFR) mL/min/1.7 3 [id number] Range:Healthy A dults >90 mL/min/1.73 m2 For Chronic Kidney Disease: Stage II Mi ld Decrease in GFR 60-9 0 Stage III Moderate Decrease in GFR 30-59 Stage IV Severe Decrease in GFR 15-29 Stage V Kidney Failure <15 CREATININE (test code = CREAT) 1.24 mg/dL 0.55-1.30 N CALCIUM (test code = CA) 10.0 mg/dL 8.2-10.1 N HGB [id number] 05:58:00 Test Item Value Reference Range Interpretation Comments HEMOGLOBIN (test code = HGB) 10.5 g/dL 12-16 L HEMATOCRIT (test code = HCT) 32.3 % 37-47 L COVID 19 Asymptomatic IH [id number] 21:16:00 Test Item Value Reference Range Interpretation Comments COVID 19 Asymptomatic IH AG (test NEGATIVE code = COVNONPUIAG) CBC W/AUTO [id number] 11:42:00 Test Item Value Reference Range Interpretation [...] % 0-0 N code = NRBC) PROTHROMBIN [id number] 11:35:00 Test Item Value Reference Range Interpretation [...] BLOOD, PT every other day NTHROMBOPLASTIN TIME [id number] 11:35:00 Test Item Value Reference Range Interpretation Comments PTT ACTIVATED (test code = APTT) 34.1 secs 24.9-37.0 N IS PATIENT ON ANTICOAGULANTS ? NHas Lab been notified if Patient is on Heparin Drip? NOIf Yes, orderCBC, OCCULT BLOOD, PT every other day NBASIC METABOLIC [id number] 11:35:00 Test Item Value Reference Range Interpretation [...] RATE (test code = GFR) mL/mi n/1.73 [id number] Range:Healthy Adults >90 mL/min/1.73 m2 For Chronic Kidney Disease: St age II Mild Decrease in GFR 60-90 St age III Moderate Decrease in GFR 30-59 Stage IV Severe Decre ase in GFR 15- 29 Stage V Kidney Failure <15 CREATININE (test code 0.84 mg/dL 0.55-1.30 N = CREAT) CALCIUM (test code = 9.9 mg/dL 8.2-10.1 N CA) - MRI C-SPINE W/O [id number] 10:52:00 Patient Name: BIBI BUSTAMANTE Unit No: [id number] EXAMS: CPT CODE: [id number] MRI C-SPINE W/O CONT [id number] MRI OF THE CERVICAL SPINE: DIAGNOSIS: 1. [...] Thompson MD CC: Fede Bahena MD Technologist: Kelley Parr(R) Transcribed D/ (1052) [email or web address] NAME: BIBI BUSTAMANTE [address] [facility] PHYS: Fede Bustamante : [birth year]AGE: 74 SEX: F [place], [place] [address] LOC: Y.MRI PHONE #: [phone] EXAM DATE: 04/18/2020 STATUS: REG CLI FAX #: [phone] RAD #: D/C DT PAGE 1 Signed Report Patient Name: BIBI BUSTAMANTE Unit No: [id number] EXAMS: CPT CODE: [id number] MRI C-SPINE W/O CONT [id number] <Continued> Orig Print D/T: S: 04/18/2020 (1055) [place] [facility] NAME: BIBI BUSTAMANTE [address] [facility] PHYS: Krishna Bustamante : 1945 AGE: 74 SEX: F [place] [id number] LOC: Y.MRI PHONE #: [phone] EXAM DATE: 04/18/2020 STATUS: REG CLI FAX #: [phone] RAD #: D/C DT PAGE 2 Signed Report
[2020-11-05 11:18] LABS: Absolute Lymphocytes (CBC) 1.6 K/uL (0.7-4.9); Basophils % 0.7 % (0-1.3); Hematocrit 26.3 % (36.0-45.0); MPV 8.8 fL (7.6-11.3); RBC Red Blood Cell Count 2.62 M/uL (3.86-4.86)
--- NOTE | 2020-11-05 11:18 | RAD REPORT ---
EXAM DESCRIPTION: RAD - Chest Single View - 11/05/2020 11:05 am CLINICAL HISTORY: COUGH Chest pain. COMPARISON: Chest Single View dated 08/09/2020; Chest Single View dated 08/07/2020; Chest Single View dated 06/20/2020; CHEST PA AND LAT 2 VIEW dated 03/09/2012 FINDINGS: Portable technique limits examination quality. The lungs are emphysematous but grossly clear. Small left pleural effusion. The heart is upper limit normal in size. Right-sided venous catheter tip in SVC.
[2020-11-05 11:19] LABS: Protime INR 0.96
[2020-11-05 11:53] LABS: Albumin 1.9 g/dL (3.4-5.0); Bilirubin Direct 0.1 mg/dL (0-0.2); Bilirubin Total 0.3 mg/dL (0.2-1.0); Magnesium 2.1 mg/dL (1.8-2.4); Potassium 3.3 mmol/L (3.5-5.1); Protein, Total 8.7 g/dL (6.4-8.2); Troponin (Emerg Dept Use Only) 0.09 ng/mL (0.0-0.045)
[2020-11-05] MEDS ORDERED: ASPIRIN 81 MG CHEWABLE TABLET ONE (12:51)
[2020-11-05] MEDS ORDERED: FAMOTIDINE 20 MG/2 ML VIAL IV ONE (12:51)
--- NOTE | 2020-11-05 13:27 | EDPHYS ---
Physician Documentation [facility] Name: Bhavani Dupont Age: 75 yrs Sex: Female : 1945 Arrival Date: 11/05/2020 Time: 09:43 Bed 25 Private MD: DAMIAN Physician Nahid Macias HPI: 11/05 10:40 This 75 yrs old Female presents to ER via Wheelchair with complaints of Cough.henrietta 10:40 The patient or guardian reports cough, that is intermittent. Onset: The henrietta symptoms/episode began/occurred 2 day(s) ago. Severity of symptoms: At their worst the symptoms were mild, in the emergency department the symptoms are unchanged. Modifying factors: The symptoms are alleviated by nothing, the symptoms are aggravated by nothing. Associated signs and symptoms: Pertinent positives: cough, covid neg , mwf dialysis. The patient has experienced similar episodes in the past, a few times. Historical: - Allergies: 09:50 all fish; aa5 09:50 CORN CONTAINING PRODUCTS; aa5 09:50 Latex, Natural Rubber; aa5 09:50 Lidocaine; aa5 09:50 TETRACYCLINES; aa5 - Home Meds: 10:08 metoprolol tartrate 25 mg Oral tab [Active]; Lyrica Oral [Active]; aa5 - PMHx: 09:50 Asthma; Dialysis MWF; aa5 10:08 Chronic hand pain; aa5 - PSHx: 09:50 left knee replacement; Tubal ligation; 4 levels cervical neck surgery; Dialysis aa5 catheter; - Immunization history:: Adult Immunizations unknown. - Social history:: Smoking status: Patient denies any tobacco usage or history of. ROS: 10:43 Constitutional: Negative for fever, chills, and weight loss, Eyes: Negative for injury, henrietta pain, redness, and discharge, ENT: Negative for injury, pain, and discharge, Neck: Negative for injury, pain, and swelling, Cardiovascular: Negative for chest pain, palpitations, and edema, Abdomen/GI: Negative for abdominal pain, nausea, vomiting, diarrhea, and constipation, Back: Negative for injury and pain, : Negative for injury, bleeding, discharge, and swelling, MS/Extremity: Negative for injury and deformity, Skin: Negative for injury, rash, and discoloration, Neuro: Negative for headache, weakness, numbness, tingling, and seizure, Psych: Negative for depression, anxiety, suicide ideation, homicidal ideation, and hallucinations, Allergy/Immunology: Negative for hives, rash, and allergies, Endocrine: Negative for neck swelling, polydipsia, polyuria, polyphagia, and marked weight changes, Hematologic/Lymphatic: Negative for swollen nodes, abnormal bleeding, and unusual bruising. 10:43 Respiratory: Positive for cough, with no reported sputum. Exam: 10:43 Constitutional: This is a well developed, well nourished patient who is awake, alert, henrietta and in no acute distress. Head/Face: Normocephalic, atraumatic. Eyes: Pupils equal round and reactive to light, extra-ocular motions intact. Lids and lashes normal. Conjunctiva and sclera are non-icteric and not injected. Cornea within normal limits. Periorbital areas with no swelling, redness, or edema. ENT: Nares patent. No nasal discharge, no septal abnormalities noted. Tympanic membranes are normal and external auditory canals are clear. Oropharynx with no redness, swelling, or masses, exudates, or evidence of obstruction, uvula midline. Mucous membranes moist. Neck: Trachea midline, no thyromegaly or masses palpated, and no cervical lymphadenopathy. Supple, full range of motion without nuchal rigidity, or vertebral point tenderness. No Meningismus. Chest/axilla: Normal chest wall appearance and motion. Nontender with no deformity. No lesions are appreciated. Cardiovascular: Regular rate and rhythm with a normal S1 and S2. No gallops, murmurs, or rubs. Normal PMI, no JVD. No pulse deficits. Respiratory: Lungs have equal breath sounds bilaterally, clear to auscultation and percussion. No rales, rhonchi or wheezes noted. No increased work of breathing, no retractions or nasal flaring. Abdomen/GI: Soft, non-tender, with normal bowel sounds. No distension or tympany. No guarding or rebound. No evidence of tenderness throughout. Back: No spinal tenderness. No costovertebral tenderness. Full range of motion. Female : Normal external genitalia. Skin: Warm, dry with normal turgor. Normal color with no rashes, no lesions, and no evidence of cellulitis. MS/ Extremity: Pulses equal, no cyanosis. Neurovascular intact. Full, normal range of motion. Neuro: Awake and alert, GCS 15, oriented to person, place, time, and situation. Cranial nerves II-XII grossly intact. Motor strength 5/5 in all extremities. Sensory grossly intact. Cerebellar exam normal. Normal gait. Psych: Awake, alert, with orientation to person, place and time. Behavior, mood, and affect are within normal limits. 10:43 Musculoskeletal/extremity: DVT Exam: No signs of deep vein thrombosis. no pain, no swelling, no tenderness, negative Homans' sign noted on exam, no appreciated bluish discoloration, no erythema, no increased warmth. 13:22 ECG was reviewed by the Attending Physician. [facility] Vital Signs: 09:48 BP 102 / 65; Pulse 117; Resp 18 S; Temp 98.1(O); Pulse Ox 100% on R/A; aa5 11:11 BP 105 / 73; Pulse 104; Resp 15 S; Pulse Ox 99% on R/A; ca1 12:10 BP 124 / 74; Pulse 94; Resp 14 S; Pulse Ox 100% on R/A; ca1 12:59 BP 134 / 78; Pulse 96; Resp 19 S; Pulse Ox 100% on R/A; ca1 13:53 BP 114 / 84; Pulse 102; Resp 20 S; Pulse Ox 99% on R/A; ca1 MDM: 10:30 Patient medically screened. [facility] 10:44 Differential Diagnosis: Bronchitis Influenza Upper Respiratory Infection Pharyngitis henrietta Viral Syndrome Pneumonia. Data reviewed: vital signs, nurses notes, lab test result(s), EKG, radiologic studies, CT scan, plain films. Data interpreted: data management manager: rate is 117 beats/min, rhythm is regular, Pulse oximetry: on room air is 100 %. Test interpretation: by ED physician or midlevel provider: ECG, plain radiologic studies. Counseling: I had a detailed discussion with the patient and/or guardian regarding: the historical points, exam findings, and any diagnostic results supporting the discharge/admit diagnosis, lab results, radiology results. 11/05 10:40 Order name: Basic Metabolic Panel; Complete Time: 12:27 [facility] 11/05 10:40 Order name: CBC with Diff; Complete Time: 12:27 [facility] 11/05 10:40 Order name: LFT's; Complete Time: 12:27 [facility] 11/05 10:40 Order name: Magnesium; Complete Time: 12:27 [facility] 11/05 10:40 Order name: NT PRO-BNP; Complete Time: 12:27 [facility] 11/05 10:40 Order name: PT-INR; Complete Time: 12:27 [facility] 11/05 10:40 Order name: Troponin (emerg Dept Use Only); Complete Time: 12:27 [facility] 11/05 10:40 Order name: XRAY Chest (1 view); Complete Time: 12:27 [facility] 11/05 10:40 Order name: Lipase; Complete Time: 12:27 [facility] 11/05 13:14 Order name: TSH bd 11/05 13:17 Order name: Echo w/ Doppler [facility] 11/05 15:00 Order name: SARS-COV-2 RT PCR EDMS 11/05 10:40 Order name: EKG; Complete Time: 10:40 [facility] 11/05 10:40 Order name: Cardiac monitoring; Complete Time: 11:11 [facility] 11/05 10:40 Order name: EKG - Nurse/Tech; Complete Time: 11: [facility] 11/05 10:40 Order name: IV Saline Lock; Complete Time: 11: [facility] 11/05 10:40 Order name: Labs collected and sent; Complete Time: 11: [facility] 11/05 10:40 Order name: O2 Per Protocol; Complete Time: 11: [facility] 11/05 10:40 Order name: O2 Sat Monitoring; Complete Time: 11:11 [facility] EC:22 Rate is 103 beats/min. Rhythm is irregularly irregular. QRS Ald[place] is Normal. [place] interval henrietta is normal. QRS interval is normal. QT interval is normal. No Q waves. T waves are Normal. No ST changes noted. Clinical impression: Atrial Fibrillation. Interpreted by me. Reviewed by me. Administered Medications: 12:36 Drug: Aspirin Chewable Tablet 324 mg Route: PO; ca1 13:30 Follow up: Response: No adverse reaction ca1 12:40 Drug: Pepcid 20 mg Route: IVP; Site: right forearm; ca1 13:30 Follow up: Response: No adverse reaction ca1 13:22 Not Given (Duplicate Order): Lovenox 40 mg Sub-Q once henrietta 14:05 Drug: Lovenox 30 mg Route: Sub-Q; Site: left lower abdomen; ca1 14:39 Follow up: Response: No adverse reaction ca1 Disposition: 11/05/20 13:27 Hospitalization ordered by Jean Pennington for Observation. Preliminary diagnosis are Cough, Anemia, unspecified, Cardiomegaly, Atrial fibrillation and flutter - new onset with RVR, End stage renal disease - on HD, mwf. - Bed requested for Telemetry/MedSurg (observation). - Status is Observation. aa5 - Condition is Fair. - Problem is new. - Symptoms have improved. Signatures: Dispatcher [employer] EDMD Sahara Jin Rosalia Box, RN RN dm5 Nahid Macias MD MD cha Calderon, Audri, RN RN aa5 July Santiago RN RN ca1 Corrections: (The following items were deleted from the chart) 13:31 13:27 Hospitalization Ordered by Jean Pennington DO for Observation. Preliminary dm5 diagnosis is Cough; Anemia, unspecified; Cardiomegaly; Atrial fibrillation and flutter - new onset with RVR; End stage renal disease - on HD, mwf. Bed requested for Telemetry/MedSurg (observation). Status is Observation. Condition is Fair. Problem is new. Symptoms have improved. henrietta 14:13 10:40 CORONAVIRUS+MR.LAB.BRZ ordered. EDMD EDMS 16:03 13:31 11/05/2020 13:27 Hospitalization Ordered by Jean Pennington DO for Observation. bd Preliminary diagnosis is Cough; Anemia, unspecified; Cardiomegaly; Atrial fibrillation and flutter - new onset with RVR; End stage renal disease - on HD, mwf. Bed requested for [facility] ER HOLD. Status is Observation. Condition is Fair. Problem is new. Symptoms have improved. dm5 16:43 16:03 11/05/2020 13:27 Hospitalization Ordered by Jean Pennington DO for Observation. aa5 Preliminary diagnosis is Cough; Anemia, unspecified; Cardiomegaly; Atrial fibrillation and flutter - new onset with RVR; End stage renal disease - on HD, mwf. Bed requested for Telemetry/MedSurg (observation). Status is Observation. Condition is Fair. Problem is new. Symptoms have improved. bd
--- NOTE | 2020-11-05 13:27 | ER ---
Nurse's Notes [facility] Name: Bhavani Dupont Age: 75 yrs Sex: Female : 1945 Arrival Date: 11/05/2020 Time: 09:43 Bed 25 Private MD: Diagnosis: Cough;Anemia, unspecified;Cardiomegaly;Atrial fibrillation and flutter-new onset with RVR;End stage renal disease-on HD, mwf Presentation: 11/05 09:48 Chief complaint: Patient states: "I thought I had COVID but I got tested on aa5 and I was negative". Pt c/o cough and feeling tired. 09:48 Coronavirus screen: cough unrelated to allergies, fatigue, The client reports previous aa5 COVID testing was negative. Date of collection: November 01, 2020. Ebola Screen: Patient negative for fever greater than or equal to 101.5 degrees Fahrenheit, and additional compatible Ebola Virus Disease symptoms. Initial Sepsis Screen: Does the patient meet any 2 criteria? HR > 90 bpm. Does the patient have a suspected source of infection? No. Patient's initial sepsis screen is negative. Risk Assessment: Do you want to hurt yourself or someone else? Patient reports no desire to harm self or others. Onset of symptoms was October 2020. 09:48 Acuity: IGOR 3 aa5 09:48 Method Of Arrival: Wheelchair aa5 Historical: - Allergies: 09:50 all fish; aa5 09:50 CORN CONTAINING PRODUCTS; aa5 09:50 Latex, Natural Rubber; aa5 09:50 Lidocaine; aa5 09:50 TETRACYCLINES; aa5 - Home Meds: 10:08 metoprolol tartrate 25 mg Oral tab [Active]; Lyrica Oral [Active]; aa5 - PMHx: 09:50 Asthma; Dialysis MWF; aa5 10:08 Chronic hand pain; aa5 - PSHx: 09:50 left knee replacement; Tubal ligation; 4 levels cervical neck surgery; Dialysis aa5 catheter; - Immunization history:: Adult Immunizations unknown. - Social history:: Smoking status: Patient denies any tobacco usage or history of. Screenin:07 Abuse screen: Denies threats or abuse. Denies injuries from another. Nutritional ca1 screening: No deficits noted. Tuberculosis screening: No symptoms or risk factors identified. Fall Risk IV access (20 points). Assessment: 10:07 General: Appears in no apparent distress. comfortable, Behavior is calm, cooperative, ca1 appropriate for age, Reports fatigue for. Pain: Denies pain. Neuro: Level of Consciousness is awake, alert, obeys commands, Oriented to person, place, time, situation. Cardiovascular: Heart tones S1 S2 present Capillary refill < 3 seconds Patient's skin is warm and dry. Cardiovascular: Rhythm is atrial fibrillation with rapid ventricular response Dialysis shunt: in the anterior aspect of right upper chest. Respiratory: Reports cough that is productive, Airway is patent Respiratory effort is even, unlabored, Respiratory pattern is regular, symmetrical, Breath sounds are clear bilaterally. GI: Abdomen is flat, non-distended, Bowel sounds present X 4 quads. Abd is soft and non tender X 4 quads. : No signs and/or symptoms were reported regarding the genitourinary system. EENT: No signs and/or symptoms were reported regarding the EENT system. Derm: Skin is intact, is healthy with good turgor, Skin is pink, warm \\T\\ dry. Musculoskeletal: Circulation, motion, and sensation intact. Capillary refill < 3 seconds. 11:11 Reassessment: Patient appears in no apparent distress at this time. Patient and/or ca1 family updated on plan of care and expected duration. Pain level reassessed. Patient is alert, oriented x 3, equal unlabored respirations, skin warm/dry/pink. 12:26 Reassessment: Patient appears in no apparent distress at this time. Patient and/or ca1 family updated on plan of care and expected duration. Pain level reassessed. Patient is alert, oriented x 3, equal unlabored respirations, skin warm/dry/pink. 13:53 Reassessment: Patient appears in no apparent distress at this time. Patient and/or ca1 family updated on plan of care and expected duration. Pain level reassessed. Patient is alert, oriented x 3, equal unlabored respirations, skin warm/dry/pink. Dr. Pennington at bedside. Vital Signs: 09:48 BP 102 / 65; Pulse 117; Resp 18 S; Temp 98.1(O); Pulse Ox 100% on R/A; aa5 11:11 BP 105 / 73; Pulse 104; Resp 15 S; Pulse Ox 99% on R/A; ca1 12:10 BP 124 / 74; Pulse 94; Resp 14 S; Pulse Ox 100% on R/A; ca1 12:59 BP 134 / 78; Pulse 96; Resp 19 S; Pulse Ox 100% on R/A; ca1 13:53 BP 114 / 84; Pulse 102; Resp 20 S; Pulse Ox 99% on R/A; ca1 ED Course: 09:43 Patient arrived in ED. rg4 09:48 Arm band placed on Patient placed in an exam room, on a stretcher. aa5 10:06 Triage completed. aa5 10:07 Patient has correct armband on for positive identification. Placed in gown. Bed in low ca1 position. Call light in reach. Side rails up X2. accounting systems analyst on. Pulse ox on. NIBP on. Warm blanket given. Head of bed elevated. 10:30 Nahid Macias MD is Attending Physician. henrietta 11:05 XRAY Chest (1 view) In Process Unspecified. EDMS 11:09 Initial lab(s) drawn, by fl, sent to lab. Inserted saline lock: 20 gauge in right em1 wrist, using aseptic technique. Blood collected. 11:26 COVID swab sent to lab. ca1 13:23 Jean Pennington DO is Hospitalizing Provider. henrietta 13:54 No provider procedures requiring assistance completed. Patient admitted, IV remains in ca1 place. Administered Medications: 12:36 Drug: Aspirin Chewable Tablet 324 mg Route: PO; ca1 13:30 Follow up: Response: No adverse reaction ca1 12:40 Drug: Pepcid 20 mg Route: IVP; Site: right forearm; ca1 13:30 Follow up: Response: No adverse reaction ca1 13:22 Not Given (Duplicate Order): Lovenox 40 mg Sub-Q once henrietta 14:05 Drug: Lovenox 30 mg Route: Sub-Q; Site: left lower abdomen; ca1 14:39 Follow up: Response: No adverse reaction ca1 Outcome: 13:27 Decision to Hospitalize by Provider. henrietta 16:43 Patient left the ED. aa5 Signatures: Dispatcher [employer] Radha Leyva RN RN sv Anderson, Corey, MD MD cha Martinez, Eric em1 Abigail Goins RN RN aa5 Beti Montoya rg4 July Santiago RN RN ca1 Corrections: (The following items were deleted from the chart) 13:53 10:07 Cardiovascular: Dialysis shunt: in the anterior aspect of right upper chest, ca1 ca1 14:39 10:07 Respiratory: Reports cough that is productive, Airway is patent Respiratory ca1 effort is even, unlabored, Respiratory pattern is regular, symmetrical, ca1 19:55 10:00 Radha Disla, RN is Primary Nurse. sv sv
[2020-11-05] MEDS ORDERED: ENOXAPARIN 30 MG/0.3 ML SQ ONE (14:14)
--- NOTE | 2020-11-05 14:16 | P.HP ---
Certification for Inpatient Patient admitted to: Observation With expected LOS: <2 Midnights Patient will require the following post-hospital care: None Practitioner: I am a practitioner with admitting privileges, knowledge of patient current condition, hospital course, and medical plan of care. Services: Services provided to patient in accordance with Admission requirements found in Title 42 Section 412.3 of the Code of Federal Regulations Patient History Date of Service: 11/05/20 Primary Care Provider: Addie Mehta NP; Nephrology-Dr. Damon Reason for admission: Cough History of Present Illness: 75-year-old female with history of end-stage renal disease on hemodialysis, atrial fibrillation not on chronic anti coagulation therapy, hypertension. Patient presented to the ER due to cough. Patient reports over the holidays her dialysis schedule had been off. She normally goes to dialysis every Thursday, Thursday and Thursday. She only went twice last week. She received her last dialysis on Thursday. She was to get dialysis today but due to her cough she was sent to the ER for further evaluation. She was tested negative for COVID last week due to exposure. She denies any fever, chills. No significant shortness of breath. She has been feeling tired. In the ER patient evaluated. Patient with AFib rate controlled. Chest x-ray showed small left pleural effusion. White count 10.8, hemoglobin 8.7. BNP elevated. Troponin 0.09. Patient admitted for further evaluation and treatment Allergies Fish Containing Products Allergy (Verified 06/20/20 20:44) Anaphylaxis Latex, Natural Rubber Allergy (Verified 06/20/20 20:44) Itching/Hives/Rash lidocaine Allergy (Verified 06/20/20 20:44) Itching/Hives/Rash nut - unspecified Allergy (Verified 06/21/20 02:36) Anaphylaxis tetracycline Allergy (Verified 06/20/20 20:44) Itching/Hives/Rash corn Adverse Reaction (Verified 06/21/20 02:36) Itching/Hives/Rash Home medications list reviewed: Yes Home Medications: Albuterol Sulfate [Albuterol Sulfate Hfa] 2 puff IH Q6HP PRN 06/20/20 Aspirin [Aspirin EC 81 MG] 81 mg PO DAILY #30 tablet. 06/26/20 Amox/Clavulanate [Augmentin 500-125 mg Tab*] 500 mg PO DAILY 5 PM #1 tab 08/13/20 Cholecalciferol (Vitamin D3) [Vitamin D 5,000 IU Cap*] 5,000 unit PO DAILY #30 cap 08/13/20 Docusate [Colace Cap*] 100 mg PO BID PRN #60 cap 08/13/20 Metoprolol Tartrate [Lopressor*] 25 mg PO BID #60 tab 08/13/20 Na Bicarb Tab [Sodium Bicarb 325 MG Tab*] 650 mg PO QID #120 tab 08/13/20 Pregabalin [Lyrica*] 50 mg PO 0600,1800 #20 cap 08/13/20 - Past Medical/Surgical History Diabetic: No -: Asthma -: End-stage renal disease on hemodialysis -: Atrial fibrillation not on chronic anti coagulation therapy -: CAD -: Chronic pain -: Cervical spine surgery -: Left knee replacement -: Tubal ligation Psychosocial/ Personal History: Patient lives at home with her . - Family History Father -: Heart disease Mother -: Cancer - Social History Smoking Status: Unknown if ever smoked Alcohol use: No CD- Drugs: No Caffeine use: No Place of Residence: Home Review of Systems General: As per HPI Eyes: Unremarkable Respiratory: Cough, As per HPI Cardiovascular: Unremarkable Gastrointestinal: Unremarkable Genitourinary: Unremarkable Musculoskeletal: Unremarkable Integumentary: Unremarkable Neurological: Unremarkable Lymphatics: Unremarkable Physical Examination - Physical Exam General: Alert, In no apparent distress, Oriented x3, Cooperative HEENT: Atraumatic Neck: Supple Respiratory: Other (Slightly diminished to the left side) Cardiovascular: Irregular heart rate/rhythm (AFib rate controlled) Gastrointestinal: Normal bowel sounds, No tenderness, No masses, No rebound, No guarding Musculoskeletal: No erythema, No tenderness, No warmth Integumentary: No erythema, No warmth Neurological: Normal speech, Normal strength at 5/5 x4 extr, Normal tone, Normal affect - Studies Laboratory Data (last 24 hrs) 11/05/20 11:05: PT 11.3, INR 0.96 11/05/20 11:05: WBC 10.8, Hgb 8.7 L, Hct 26.3 L, Plt Count 350 11/05/20 11:05: Sodium 137, Potassium 3.3 L, BUN 40 H, Creatinine 7.32 H*, Glucose 85, Magnesium 2.1, Total Bilirubin 0.3, AST 19, ALT 19, Alkaline Phosphatase 75, Lipase 74 Assessment and Plan - Plan Impression: Cough likely related to volume overload and small left pleural effusion with missed dialysis End-stage renal disease on hemodialysis Atrial fibrillation chronic not on chronic anti coagulation therapy Chronic pain Plan: Patient will be admitted for further evaluation and treatment. No evidence of pneumonia noted. BNP elevated. Likely from missed dialysis. Will contact Nephrology for dialysis today. Will monitor Overnite. Continue with home medication including metoprolol and Lyrica. Will obtain COVID testing. Will also check for flu. Anticipate improvement over the next 24 hr. If improved will plan for discharge tomorrow. Discharge Plan: Home Plan to discharge in: 24 Hours - Advance Directives Does patient have a Living Will: No Does patient have a Durable POA for Healthcare: No - Code Status/Comfort Care Code Status Assessed: Yes (Full code) Time Spent Managing Pts Care (In Minutes): 55
[2020-11-05] MEDS ORDERED: ACETAMINOPHEN 500 MG TAB PO PRN (18:02)
[2020-11-05] MEDS ORDERED: ONDANSETRON 4 MG/2 ML VIAL IV PRN (18:02)
[2020-11-05 18:27] VITALS: BMI 23.1
[2020-11-05 19:45] LABS: CKMB Creatine Kinase MB 1.2 ng/mL (0.3-3.6); Troponin I 0.14 ng/mL (0.0-0.045)
[2020-11-05] MEDS: PREGABALIN 50 MG CAP PO SCH (21:23)
[2020-11-05] MEDS: HEPARIN 5000 UNIT/ML 1 ML VIAL SQ SCH (21:25)
[2020-11-05] MEDS: METOPROLOL TAR 25 MG TAB PO SCH (21:25)
[2020-11-06 05:34] LABS: Absolute Lymphocytes (CBC) 2.1 K/uL (0.7-4.9); Basophils % 0.4 % (0-1.3); Lymphocytes % 18.6 % (15.3-44.8); MPV 8.9 fL (7.6-11.3); RBC Red Blood Cell Count 2.05 M/uL (3.86-4.86)
[2020-11-06 05:48] LABS: Hematocrit 20.3 % (36.0-45.0)
[2020-11-06] MEDS: METOPROLOL TAR 25 MG TAB PO SCH ×2 (05:48→18:32)
[2020-11-06 06:52] LABS: Urine Appearance CLOUDY; Urine Bilirubin NEGATIVE (NEG); Urine Blood 1+ (NEG); Urine Color YELLOW; Urine Glucose NEGATIVE (NEG); Urine Protein 2+ (NEG); Urine Specific Gravity <=1.005 (1.005-1.030); Urine Urobilinogen 0.2 mg/dL (0.2-1.0)
[2020-11-06 06:53] LABS: Urine Microscopic Reflex ORDER UMIC
[2020-11-06 07:36] LABS: Urine Bacteria <20 /HPF (<20); Urine RBC <5 /HPF (NONE SEEN)
--- NOTE | 2020-11-06 07:55 | P.CNS ---
Date of Consult: 11/06/20 Reason for Consult: ESRD Requesting Physician: Jean Pennington Primary Care Provider: Addie Mehta NP; Nephrology-Dr. Damon Chief Complaint: Cough History of Present Illness: 75-year-old female with history of end-stage renal disease on hemodialysis, atrial fibrillation not on chronic anti coagulation therapy, hypertension. Patient presented to the ER due to cough. Patient reports over the holidays her dialysis schedule had been off. She normally goes to dialysis every Thursday, Thursday and Thursday. She only went twice last week. She received her last dialysis on Thursday. She was to get dialysis today but due to her cough she was sent to the ER for further evaluation. She was tested negative for COVID last week due to exposure. She denies any fever, chills. No significant shortness of breath. She has been feeling tired. 10:40 This 75 yrs old Female presents to ER via Wheelchair with complaints of Cough.henrietta 10:40 The patient or guardian reports cough, that is intermittent. Onset: The henrietta symptoms/episode began/occurred 2 day(s) ago. Severity of symptoms: At their worst the symptoms were mild, in the emergency department the symptoms are unchanged. Modifying factors: The symptoms are alleviated by nothing, the symptoms are aggravated by nothing. Associated signs and symptoms: Pertinent positives: cough, covid neg , mwf dialysis. The patient has experienced similar episodes in the past, a few times. Allergies Fish Containing Products Allergy (Verified 06/20/20 20:44) Anaphylaxis Latex, Natural Rubber Allergy (Verified 06/20/20 20:44) Itching/Hives/Rash lidocaine Allergy (Verified 06/20/20 20:44) Itching/Hives/Rash nut - unspecified Allergy (Verified 06/21/20 02:36) Anaphylaxis tetracycline Allergy (Verified 06/20/20 20:44) Itching/Hives/Rash corn Adverse Reaction (Verified 06/21/20 02:36) Itching/Hives/Rash Home medications list reviewed: Yes Home Medications: Aspirin [Aspirin EC 81 MG] 81 mg PO DAILY #30 tablet. 06/26/20 Metoprolol Tartrate [Lopressor*] 25 mg PO BID #60 tab 08/13/20 Pregabalin [Lyrica*] 50 mg PO 0600,1800 #20 cap 08/13/20 - Past Medical/Surgical History Diabetic: No -: Asthma -: End-stage renal disease on hemodialysis -: Atrial fibrillation not on chronic anti coagulation therapy -: CAD -: Chronic pain joints -: Cervical disc surgery -: Left knee replacement -: Tubal ligation Psychosocial/ Personal History: Patient lives at home with her . - Family History Father Medical History: Heart disease Mother Medical History: Cancer Notes: Lung - Social History Smoking Status: Never smoker Alcohol use: Yes CD- Drugs: No Caffeine use: Yes Place of Residence: Home Review of Systems 10-point ROS is otherwise unremarkable General: Weakness, Malaise Respiratory: Cough Physical Examination Temp Pulse Resp BP Pulse Ox 98.8 F 92 H 18 128/59 L 95 11/06/20 04:00 11/06/20 05:48 11/06/20 04:00 11/06/20 05:48 11/06/20 04:00 General: In no apparent distress, Oriented x3, Cooperative HEENT: Atraumatic Neck: Supple Respiratory: Clear to auscultation bilaterally Cardiovascular: No edema, Regular rate/rhythm Gastrointestinal: Soft and benign, Non-distended Musculoskeletal: No clubbing, No contractures Integumentary: No rashes Neurological: Normal speech Laboratory Data (last 24 hrs) 11/05/20 11:05: PT 11.3, INR 0.96 11/05/20 11:05: WBC 10.8, Hgb 8.7 L, Hct 26.3 L, Plt Count 350 11/05/20 11:05: Sodium 137, Potassium 3.3 L, BUN 40 H, Creatinine 7.32 H*, Glucose 85, Magnesium 2.1, Total Bilirubin 0.3, AST 19, ALT 19, Alkaline Phosphatase 75, Lipase 74 Imagings Data: EXAM DESCRIPTION: RAD - Chest Single View - 11/05/2020 11:05 am CLINICAL HISTORY: COUGH Chest pain. COMPARISON: Chest Single View dated 08/09/2020; Chest Single View dated 08/07/2020; Chest Single View dated 06/20/2020; CHEST PA AND LAT 2 VIEW dated 03/09/2012 FINDINGS: Portable technique limits examination quality. The lungs are emphysematous but grossly clear. Small left pleural effusion. The heart is upper limit normal in size. Right-sided venous catheter tip in SVC. Conclusions/Impression: A/ ESRD on HD Hypokalemia HTN with CKD/ CHF Diastolic CHF, chronic Severe malnutrition Anemia in chronic illness LEA/ Secondary HyperPTH complicated by hypercalcemia P/ Continue current POC and Medications. Acute HD ordered. Replete potassium. Hypercalcemia evaluation ordered. Give Retacrit. Transfuse one unit PRBC. No NSAIDs. AM labs prn. Daily weight. Case reviewed with Dr. Pennington Thank you kindly for the consultation.
[2020-11-06] MEDS: HEPARIN 5000 UNIT/ML 1 ML VIAL SQ SCH (08:09)
[2020-11-06] MEDS: PREGABALIN 50 MG CAP PO SCH ×2 (08:09→20:00)
[2020-11-06 08:36] LABS: Hematocrit 20.7 % (36.0-45.0)
[2020-11-06 09:00] LABS: Magnesium 1.8 mg/dL (1.8-2.4); Phosphorus 3.4 mg/dL (2.5-4.9); Potassium 3.4 mmol/L (3.5-5.1); Uric Acid 3.8 mg/dL (2.6-6.0)
[2020-11-06] MEDS ORDERED: EPOETIN ALFA 10,000 UNIT/ML VIAL SQ SCH (09:00)
[2020-11-06] MEDS ORDERED: PNEUMOCOCCAL VACCINE 0.5 ML IMVAC ONE (09:00)
[2020-11-06] MEDS ORDERED: INFLUENZA VACCINE (for 3y+) 0.5 ML DOSE IMVAC ONE (09:00)
[2020-11-06] MEDS ORDERED: MAGNESIUM SULFATE 1 gm IVPB 1 GM/100 ML BAG IV ONE (13:00)
--- NOTE | 2020-11-06 13:23 | P.DS ---
Admission Date: 11/05/20 Discharge Date: 11/06/20 Primary Care Provider: Addie Mehta NP; Nephrology-Dr. Damon Disposition: ROUTINE DISCHARGE Discharge Condition: GOOD Reason for Admission: Cough Consultations: Nephrology-Dr. Damon Procedures: CXR: FINDINGS: Portable technique limits examination quality. The lungs are emphysematous but grossly clear. Small left pleural effusion. The heart is upper limit normal in size. Right-sided venous catheter tip in SVC. Medical Problem List: Cough likely related to volume overload and small left pleural effusion with missed dialysis End-stage renal disease on hemodialysis Atrial fibrillation chronic not on chronic anti coagulation therapy Chronic pain Fatigue likely related to acute on chronic anemia Brief History of Present Illness: 75-year-old female with history of end-stage renal disease on hemodialysis, atrial fibrillation not on chronic anti coagulation therapy, hypertension. Patient presented to the ER due to cough. Patient reports over the holidays her dialysis schedule had been off. She normally goes to dialysis every Thursday, Thursday and Thursday. She only went twice last week. She received her last dialysis on Thursday. She was to get dialysis today but due to her cough she was sent to the ER for further evaluation. She was tested negative for COVID last week due to exposure. She denies any fever, chills. No significant shortness of breath. She has been feeling tired. In the ER patient evaluated. Patient with AFib rate controlled. Chest x-ray showed small left pleural effusion. White count 10.8, hemoglobin 8.7. BNP elevated. Troponin 0.09. Patient admitted for further evaluation and treatment Hospital Course: Patient presented with a cough. This is likely related to volume overload and small left pleural effusion with missed dialysis. Patient with end-stage renal disease on hemodialysis. The patient was monitored overnight. No evidence of infection noted. Patient has done well. Patient also had reported fatigue. Patient with anemia of chronic disease. Hemoglobin did drop below 6.7 requiring transfusion. No evidence of bleeding noted. Case discussed in detail with nephrology. Patient to receive 1 unit of blood. After transfusion patient will be discharged home. Patient will continue with her current dialysis regimen of every Thursday, Thursday and Thursday. Recommend 1500 cc per day fluid restriction and low-salt diet. Patient to monitor her weight daily. Further instructions will be provided by nephrology. Recommend to recheck lab-CBC in 1-2 weeks to monitor progress. Patient with history of atrial fibrillation not on chronic anti coagulation therapy. This has remained stable. At discharge she will continue with metoprolol 25 mg 1 pill twice daily. Patient with chronic pain. Patient uses Lyrica 50 mg 1 pill twice daily. At discharge she may continue with her medication. Vital Signs/Physical Exam: Temp Pulse Resp BP Pulse Ox 99.2 F 87 16 115/54 L 98 11/06/20 11:48 11/06/20 11:48 11/06/20 11:48 11/06/20 11:48 11/06/20 11:48 General: Alert, In no apparent distress, Oriented x3, Cooperative HEENT: Atraumatic Neck: Supple Respiratory: Clear to auscultation bilaterally, Normal air movement Cardiovascular: Normal pulses, Regular rate/rhythm Gastrointestinal: Normal bowel sounds, No tenderness, No masses, No rebound, No guarding Neurological: Normal speech, Normal strength at 5/5 x4 extr, Normal tone, Normal affect Laboratory Data at Discharge: WBC 11.2 K/uL (4.3-10.9) H 11/06/20 05:02 Hgb 6.7 g/dL (12.0-15.0) L* 11/06/20 08:00 Hct 20.7 % (36.0-45.0) L* 11/06/20 08:00 Plt Count 307 K/uL (152-406) 11/06/20 05:02 PT 11.3 SECONDS (9.5-12.5) 11/05/20 11:05 INR 0.96 11/05/20 11:05 Sodium 138 mmol/L (136-145) 11/06/20 05:02 Potassium 3.4 mmol/L (3.5-5.1) L 11/06/20 05:02 BUN 22 mg/dL (7-18) H 11/06/20 05:02 Creatinine 4.38 mg/dL (0.55-1.3) H D 11/06/20 05:02 Glucose 79 mg/dL (74-106) 11/06/20 05:02 Uric Acid 3.8 mg/dL (2.6-6.0) 11/06/20 05:02 Phosphorus 3.4 mg/dL (2.5-4.9) 11/06/20 05:02 Magnesium 1.8 mg/dL (1.8-2.4) 11/06/20 05:02 Total Bilirubin 0.3 mg/dL (0.2-1.0) 11/05/20 11:05 AST 19 U/L (15-37) 11/05/20 11:05 ALT 19 U/L (12-78) 11/05/20 11:05 Alkaline Phosphatase 75 U/L (45-117) 11/05/20 11:05 Troponin I 0.14 ng/mL (0.0-0.045) H 11/05/20 19:11 Lipase 74 U/L (73-393) 11/05/20 11:05 Home Medications: Aspirin [Aspirin EC 81 MG] 81 mg PO DAILY #30 tablet. 06/26/20 Metoprolol Tartrate [Lopressor*] 25 mg PO BID #60 tab 08/13/20 Pregabalin [Lyrica*] 50 mg PO 0600,1800 #20 cap 08/13/20 Patient Discharge Instructions: 1. Recommend follow up with PCP in 1 week. 2. Patient presented with a cough. This is likely related to volume overload and small left pleural effusion with missed dialysis. Patient with end-stage renal disease on hemodialysis. The patient was monitored overnight. No evidence of infection noted. Patient has done well. Patient also had reported fatigue. Patient with anemia of chronic disease. Hemoglobin did drop below 6.7 requiring transfusion. No evidence of bleeding noted. Case discussed in detail with nephrology. Patient to receive 1 unit of blood. After transfusion patient will be discharged home. Patient will continue with her current dialysis regimen of every Thursday, Thursday and Thursday. Recommend 1500 cc per day fluid restr iction and low-salt diet. Patient to monitor her weight daily. Further instructions will be provided by nephrology. Recommend to recheck lab-CBC in 1- 2 weeks to monitor progress. 3. Patient with history of atrial fibrillation not on chronic anti coagulation therapy. This has remained stable. At discharge she will continue with metoprolol 25 mg 1 pill twice daily. 4. Patient with chronic pain. Patient uses Lyrica 50 mg 1 pill twice daily. At discharge she may continue with her medication. Diet: Renal Activity: Ad fredy Followup: Socorro Mehta NP [Primary Care Provider] - Time spent managing pt's care (in minutes): 55
[2020-11-06] MEDS ORDERED: NA CHLORIDE 0.9% 1,000 ML ONE (14:34)
[2020-11-06 19:17] LABS: Hematocrit 21.8 % (36.0-45.0)
[2020-11-06 20:24] VITALS: BP 118/56; TEMP 99.2
[2020-11-06 21:07] VITALS: O2SAT 98
--- NOTE | 2020-11-07 08:57 | ECHO ---
HEIGHT: 5 ft 7 in WEIGHT: 147 lb 11.35 oz DATE OF STUDY: 11/06/[address]: Nahid Macias MD 2-DIMENSIONAL: YES M.MODE: YES DOPPLER: YES COLOR FLOW: YES TDS: NO PORTABLE: NO DEFINITY: NO BUBBLE STUDY: NO DIAGNOSIS: ATRIAL FIBRILLATION CARDIAC HISTORY: CATHERIZATION: NO SURGERY: NO PROSTHETIC VALVE: NO PACEMAKER: NO MEASUREMENTS (cm) DIASTOLIC (NORMALS) SYSTOLIC (NORMALS) IVSd (0.6-1.2) LA Diam (1.9-4.0) LVEF NORMAL% LVIDd (3.5-5.7) LVIDs (2.0-3.5) %FS % LVPWd (0.6-1.2) Ao Diam (2.0-3.7) 2 DIMENSIONAL ASSESSMENT: RIGHT ATRIUM: NORMAL LEFT ATRIUM: NORMAL RIGHT VENTRICLE: NORMAL LEFT VENTRICLE: NORMAL TRICUSPID VALVE: NORMAL MITRAL VALVE: NORMAL PULMONIC VALVE: NORMAL AORTIC VALVE: NORMAL PERICARDIAL EFFUSION: NONE AORTIC ROOT: NORMAL LEFT VENTRICULAR WALL MOTION: NORMAL DOPPLER/COLOR FLOW: NORMAL COMMENTS: TECHNICALLY DIFFICULT STUDY. NORMAL LEFT VENTRICULAR SIZE AND FUNCTION. NO WALL MOTION ABNORMALITY. NO EFFUSION. NORMAL LEFT ATRIAL SIZE. NO THROMBUS. TECHNOLOGIST: Nupur BEAL
[2020-11-09 14:20] LABS: Vitamin D 1,25-Dihydroxy Total 29 pg/mL (18-72); Vitamin D,1,25-OH2, D2 <8 pg/mL
== END 2020-11-06 20:20 | disposition home or self-care (01) ==
LOC: ER 09:39 → ERHOLD 14:04 → 2ND 17:35
PROVIDERS: ADMIT Family Medicine; ATTEND Family Medicine
DX: J90 Pleural effusion, not elsewhere classified (principal); I13.2 Hypertensive heart and chronic kidney disease with heart failure and with stage 5 chronic kidney disease, or end stage renal disease; N18.6 End stage renal disease; Z99.2 Dependence on renal dialysis; I48.20 Chronic atrial fibrillation, unspecified; Z20.822 Contact with and (suspected) exposure to COVID-19; D63.1 Anemia in chronic kidney disease; G89.29 Other chronic pain; Z79.82 Long term (current) use of aspirin; J45.909 Unspecified asthma, uncomplicated; I25.10 Atherosclerotic heart disease of native coronary artery without angina pectoris; Z96.652 Presence of left artificial knee joint; E87.6 Hypokalemia; I50.32 Chronic diastolic (congestive) heart failure; E43 Unspecified severe protein-calorie malnutrition; N25.0 Renal osteodystrophy; N25.81 Secondary hyperparathyroidism of renal origin
CPT/HCPCS: 36415; 71045; 80048; 80076; 81003; 81015; 82164; 82306; 82550; 82553; 82652; 83690; 83735; 83880; 83970; 84100; 84439; 84443; 84480; 84484; 84550; 85014; 85018; 85025; 85610; 86850; 86900; 86901; 87086; 87088; 90935; 93005; 93306; 96372; 96374; 99284; G0378; J1644; J1650; J3475; J7030; P9016; Q5105; U0003

== ENCOUNTER 2021-04-15 03:45 | Emergency (ER) | payer OTHER, MEDICARE ==
[2021-04-15] MEDS ORDERED: MORPHINE 4 MG/ML SYR ONE (05:06)
[2021-04-15] MEDS ORDERED: ONDANSETRON 4 MG/2 ML VIAL ONE (05:07)
[2021-04-15 05:18] LABS: Protime INR 1.26
[2021-04-15 05:22] LABS: Absolute Lymphocytes (CBC) 1.2 K/uL (0.7-4.9); Basophils % 0.9 % (0-1.3); Hematocrit 28.3 % (36.0-45.0); Lymphocytes % 16.2 % (15.3-44.8); RBC Red Blood Cell Count 2.94 M/uL (3.86-4.86)
[2021-04-15 05:45] LABS: ALT/SGPT 12 U/L (12-78); AST/SGOT 19 U/L (15-37); Alkaline Phosphatase 135 U/L (45-117); BUN Blood Urea Nitrogen 40 mg/dL (7-18); Bicarbonate 22 mmol/L (21-32); Bilirubin Direct 0.2 mg/dL (0-0.2); Bilirubin Total 0.5 mg/dL (0.2-1.0); Glucose Level 79 mg/dL (74-106); Magnesium 2.1 mg/dL (1.8-2.4); Potassium 4.1 mmol/L (3.5-5.1); Protein, Total 8.5 g/dL (6.4-8.2); Sodium Level 132 mmol/L (136-145)
[2021-04-15 05:46] LABS: NT PRO-BNP > 175000 pg/mL (<125)
--- NOTE | 2021-04-15 07:03 | EDPHYS ---
Physician Documentation [facility] Name: Bhavani Dupont Age: 75 yrs Sex: Female : 1945 Arrival Date: 04/15/2021 Time: 03:49 Bed 13 Private MD: ED Physician Nahid Macias HPI: 04/15 04:47 This 75 yrs old Female presents to ER via Wheelchair with complaints of ma2 Swelling of extremities,brusing, Arm Pain. 04:47 This 75 yrs old Female presents to ER via Wheelchair with complaints of ma2 Swelling of extremities,brusing, Arm Pain. 04:47 Onset: The symptoms/episode began/occurred gradually, 2 day(s) ago. Associated signs ma2 and symptoms: Pertinent negatives: erythema, numbness, pain, swelling. Associated signs and symptoms: Pertinent positives: swelling, Pertinent negatives: swelling. Severity of symptoms: At their worst the symptoms were mild, in the emergency department the symptoms are unchanged. The patient has not experienced similar symptoms in the past. chronic le swelling, moslty on left leg, got worse last few days, she is dialysis patient and gets HD once a week. . Historical: - Allergies: 04:15 all fish; lp1 04:15 CORN CONTAINING PRODUCTS; lp1 04:15 Latex, Natural Rubber; lp1 04:15 Lidocaine; lp1 04:15 TETRACYCLINES; lp1 - Home Meds: 04:15 Lyrica Oral [Active]; metoprolol tartrate 25 mg Oral tab [Active]; lp1 - PMHx: 04:15 Asthma; Chronic hand pain; DIALYSIS MWF; lp1 - PSHx: 04:15 L knee replacement; lp1 - Immunization history:: Adult Immunizations up to date. - Social history:: Smoking status: Patient denies any tobacco usage or history of. - Family history:: not pertinent. ROS: 04:47 Constitutional: Negative for fever, chills, and weight loss. ma2 04:47 All other systems are negative. Exam: 04:47 Constitutional: This is a well developed, well nourished patient who is awake, alert, ma2 and in no acute distress. Chest/axilla: right upper chest picc line. skin wnl, Normal chest wall appearance and motion. Nontender with no deformity. No lesions are appreciated. Cardiovascular: Regular rate and rhythm with a normal S1 and S2. No gallops, murmurs, or rubs. Normal PMI, no JVD. No pulse deficits. Respiratory: Lungs have equal breath sounds bilaterally, clear to auscultation and percussion. No rales, rhonchi or wheezes noted. No increased work of breathing, no retractions or nasal flaring. Abdomen/GI: Soft, non-tender, with normal bowel sounds. No distension or tympany. No guarding or rebound. No evidence of tenderness throughout. MS/ Extremity: right arm with a-v dialysis fistula in good order, there is echymosis around it, yet no rendess or swelling, no warmth or signs of infection or abscess. patitai also has left leg swelling > right, pitting edema otherwise Pulses equal, no cyanosis. Neurovascular intact. Full, normal range of motion. Vital Signs: 04:12 BP 105 / 90; Pulse 102; Resp 18; Temp 97.9(TE); Pulse Ox 100% on R/A; Weight 71.21 kg lp1 (R); Height 5 ft. 6 in. (167.64 cm); Pain 8/10; 05:00 BP 107 / 72; Pulse 96; Resp 18; Pulse Ox 100% on R/A; lp1 06:30 BP 101 / 73; Pulse 104; Resp 18; Pulse Ox 100% on R/A; lp1 07:00 BP 104 / 71; Pulse 98; Resp 18; Pulse Ox 100% on R/A; tr6 04:12 Body Mass Index 25.34 (71.21 kg, 167.64 cm) lp1 MDM: 04:09 Patient medically screened. ma2 04:47 Differential diagnosis: contusion, abrasion, tendonitis, left leg edema likley d/t CKD ma2 vs lympheema vs dvt, will get us dvt rule out if that is negative, she will see dr. reeves for possible diuretics. her surgery manager advised for more frequent HD session however she has sacral ulcer and does not want to sit 4 hrs during HD.. 07:07 Data reviewed: vital signs, nurses notes, lab test result(s), EKG, radiologic studies, henrietta doppler. Data interpreted: environmental monitoring technician: rate is 104 beats/min, rhythm is regular. Counseling: I had a detailed discussion with the patient and/or guardian regarding: the historical points, exam findings, and any diagnostic results supporting the discharge/admit diagnosis, lab results, radiology results, the need for outpatient follow up, for definitive care, an permastone applicator. 07:08 Physician consultation: Leif Reeves DO was called at 07:05, and will see patient IN henrietta DIALYSIS, SCHEDULED TODAY. 04/15 04:31 Order name: Basic Metabolic Panel az2 04/15 04:31 Order name: CBC with Diff ma2 04/15 04:31 Order name: LFT's; Complete Time: 06:41 ma2 04/15 04:31 Order name: Magnesium; Complete Time: 06:41 ma2 04/15 04:31 Order name: NT PRO-BNP; Complete Time: 06:41 ma2 04/15 04:31 Order name: PT-INR; Complete Time: 06:41 ma2 04/15 04:31 Order name: Basic Metabolic Panel; Complete Time: 06:41 EDMS 04/15 04:31 Order name: CBC with Automated Diff; Complete Time: 06:41 EDMS 04/15 04:45 Order name: US Extremity Venous Unilateral Ltd ma2 Administered Medications: 04:50 Drug: morphine 4 mg Route: IVP; Site: left forearm; lp1 04:50 Drug: Zofran (Ondansetron) 4 mg Route: IVP; Site: left forearm; lp1 07:54 Drug: [place] (HYDROcodone-acetaminophen) 5 mg-325 mg 1 tabs Route: PO; tr6 08:25 Follow up: Response: No adverse reaction tr6 Disposition: 04/15/21 07:01 Discharged to Home. Impression: Edema, unspecified, End stage renal disease - on HD, M,W,F, Anemia, unspecified. - Condition is Stable. - Discharge Instructions: Anemia, Nonspecific, Edema, Dialysis, Edema, [id number], Hemodialysis, Peripheral Edema. - Prescriptions for Tylenol- Codeine #3 300-30 mg Oral Tablet - take 2 tablets by ORAL route every 4-6 hours As needed; 15 tablet. - Medication Reconciliation Form, Thank You Letter, Antibiotic Education, Prescription Opioid Use form. - Follow up: Private Physician; When: As needed; Reason: Recheck today's complaints, Continuance of care, Re-evaluation by your physician. - Problem is new. - Symptoms have improved. Signatures: Dispatcher [employer] EDNahid Louis MD MD cha Pena, Laura RN RN lp1 Marck Norwood MD MD ma2 Neisha Patiño, RN RN tr6 Corrections: (The following items were deleted from the chart) 08:29 07:01 04/15/2021 07:01 Discharged to Home. Impression: Edema, unspecified; End stage tr6 renal disease - on HD, M,W,F; Anemia, unspecified. Condition is Stable. Forms are Medication Reconciliation Form, Thank You Letter, Antibiotic Education, Prescription Opioid Use. Follow up: Private Physician; When: As needed; Reason: Recheck today's complaints, Continuance of care, Re-evaluation by your physician. Problem is new. Symptoms have improved. henrietta
--- NOTE | 2021-04-15 07:03 | ER ---
Nurse's Notes [facility] Name: Bhavani Dupont Age: 75 yrs Sex: Female : 1945 Arrival Date: 04/15/2021 Time: 03:49 Bed 13 Private MD: Diagnosis: Edema, unspecified;End stage renal disease-on HD, M,W,F;Anemia, unspecified Presentation: 04/15 04:12 Chief complaint: Patient states: Reports pain to right arm, fistula placement on lp1 04/09/21, reports increasing swelling and bruising to right arm x 2 days; States swelling to left leg x 2 weeks, worse this week; Last dialyzed on 04/12/21. Coronavirus screen: Client denies travel out of the [place] in the last 14 days. At this time, the client does not indicate any symptoms associated with coronavirus-19. Ebola Screen: No symptoms or risks identified at this time. Initial Sepsis Screen: Does the patient meet any 2 criteria? No. Patient's initial sepsis screen is negative. Does the patient have a suspected source of infection? No. Patient's initial sepsis screen is negative. Risk Assessment: Do you want to hurt yourself or someone else? Patient reports no desire to harm self or others. Onset of symptoms was April 15, 2021. 04:12 Method Of Arrival: Wheelchair lp1 04:12 Acuity: IGOR 3 lp1 Historical: - Allergies: 04:15 all fish; lp1 04:15 CORN CONTAINING PRODUCTS; lp1 04:15 Latex, Natural Rubber; lp1 04:15 Lidocaine; lp1 04:15 TETRACYCLINES; lp1 - Home Meds: 04:15 Lyrica Oral [Active]; metoprolol tartrate 25 mg Oral tab [Active]; lp1 - PMHx: 04:15 Asthma; Chronic hand pain; DIALYSIS MWF; lp1 - PSHx: 04:15 L knee replacement; lp1 - Immunization history:: Adult Immunizations up to date. - Social history:: Smoking status: Patient denies any tobacco usage or history of. - Family history:: not pertinent. Screenin:15 Abuse screen: Denies threats or abuse. Denies injuries from another. Nutritional lp1 screening: No deficits noted. Tuberculosis screening: No symptoms or risk factors identified. Fall Risk Total Prakash Fall Scale indicates High Risk Score (45 or more points). Fall prevention measures have been instituted. Side Rails Up X 2 Frequent Obs/Assessments Occuring Family Present and informed to notify staff if the need to leave the bedside As available patient and family educated on Fall Prevention Program and Strategies. Assessment: 04:17 General: Appears uncomfortable, Behavior is appropriate for age. Pain: Complains of lp1 pain in buttocks and right arm Pain currently is 8 out of 10 on a pain scale. Quality of pain is described as aching. Neuro: Level of Consciousness is awake, alert, obeys commands, Oriented to person, place, time, situation. Cardiovascular: Patient's skin is warm and dry. Edema pitting to left midcalf, left ankle, left foot and left toes Dialysis shunt: in the right bicep. Respiratory: Respiratory effort is even, unlabored, Respiratory pattern is regular, symmetrical. GI: No signs and/or symptoms were reported involving the gastrointestinal system. : No signs and/or symptoms were reported regarding the genitourinary system. EENT: No signs and/or symptoms were reported regarding the EENT system. Derm: Skin is fragile, is thin, Skin is dry, Skin is normal, Bruising that is dark purple, on right arm. Musculoskeletal: No deficits noted. 05:15 Reassessment: Assisted patient with repositioning, reports pain to buttocks; on lp1 assessment, stage to pressure ulcer in between buttocks; gauze and foam tape applied for comfort. 06:00 Reassessment: Patient and/or family updated on plan of care and expected duration. Pain lp1 level reassessed. Assisted patient with repositioning for comfort. 06:39 Reassessment: Ultrasound at bedside. lp1 07:09 Reassessment:. tr6 Vital Signs: 04:12 BP 105 / 90; Pulse 102; Resp 18; Temp 97.9(TE); Pulse Ox 100% on R/A; Weight 71.21 kg lp1 (R); Height 5 ft. 6 in. (167.64 cm); Pain 8/10; 05:00 BP 107 / 72; Pulse 96; Resp 18; Pulse Ox 100% on R/A; lp1 06:30 BP 101 / 73; Pulse 104; Resp 18; Pulse Ox 100% on R/A; lp1 07:00 BP 104 / 71; Pulse 98; Resp 18; Pulse Ox 100% on R/A; tr6 04:12 Body Mass Index 25.34 (71.21 kg, 167.64 cm) lp1 ED Course: 03:49 Patient arrived in ED. 04:08 Marck Norwood MD is Attending Physician. [facility] 04:12 Katey Mosley, RN is Primary Nurse. lp1 04:14 Triage completed. lp1 04:15 Arm band placed on. lp1 04:17 Patient has correct armband on for positive identification. Pulse ox on. NIBP on. lp1 04:50 Inserted saline lock: 22 gauge in left forearm, using aseptic technique. Blood lp1 collected. 05:55 Attending Physician role handed off by Marck Norwood MD cha 05:55 Nahid Macias MD is Attending Physician. [facility] 06:49 US Extremity Venous Unilateral Ltd In Process Unspecified. EDMS 07:58 Primary Nurse role handed off by Katey Mosley RN 08:25 Neisha Patiño RN is Primary Nurse. tr6 08:25 IV discontinued, intact, bleeding controlled, No redness/swelling at site. Pressure tr6 dressing applied. Administered Medications: 04:50 Drug: morphine 4 mg Route: IVP; Site: left forearm; lp1 04:50 Drug: Zofran (Ondansetron) 4 mg Route: IVP; Site: left forearm; lp1 07:54 Drug: [place] (HYDROcodone-acetaminophen) 5 mg-325 mg 1 tabs Route: PO; tr6 08:25 Follow up: Response: No adverse reaction tr6 Outcome: 07:01 Discharge ordered by . henrietta 08:26 Discharged to home via wheelchair, with family. tr6 08:26 Condition: unchanged 08:26 Discharge instructions given to patient, Instructed on discharge instructions, follow up and referral plans. no drinking with medication, medication usage, Demonstrated understanding of instructions, follow-up care, medications, Prescriptions given X 1. 08:29 Patient left the ED. tr6 Signatures: Dispatcher [employer] EDMS Sahara Jin Corey, MD MD cha Salyer, Edna es Pena, Laura, KHANG RN 1 Margo Lyons RN RN Marck Norwood MD MD ma2 Neisha Patiño RN RN tr6 Corrections: (The following items were deleted from the chart) 06:44 04:17 Cardiovascular: Patient's skin is warm and dry. Dialysis shunt: in the right lp1 bicep, lp1
[2021-04-15] MEDS ORDERED: predniSONE 20 MG TAB ONE (07:59)
[2021-04-15] MEDS ORDERED: COLCHICINE 0.6 MG TAB ONE (07:59)
[2021-04-15] MEDS ORDERED: HYDROCODONE/APAP 5/325 MG TAB ONE (08:00)
[2021-04-15 08:35] VITALS: TEMP 97.9; O2SAT 100
[2021-04-15 08:40] VITALS: BP 104/71
--- NOTE | 2021-04-15 09:02 | RAD REPORT ---
EXAM DESCRIPTION: US - Extremity Venous Uni Ltd - 04/15/2021 6:49 am CLINICAL HISTORY: pain swelling Leg swelling and edema. COMPARISON: No comparisons FINDINGS: Left lower extremity venous system was interrogated with Doppler technique. Normal flow, c ompressibility and augmentation was noted. There is no DVT present. IMPRESSION: No evidence of left lower extremity deep venous thrombosis.
== END 2021-04-15 08:29 | disposition home or self-care (01) ==
LOC: ER 03:45
DX: N18.6 End stage renal disease (principal); D63.1 Anemia in chronic kidney disease; Z99.2 Dependence on renal dialysis; Z88.1 Allergy status to other antibiotic agents; Z91.013 Allergy to seafood; Z91.018 Allergy to other foods; Z91.040 Latex allergy status; Z91.048 Other nonmedicinal substance allergy status
CPT/HCPCS: 85025; 80048; 36415; 83735; 85610; 80076; 83880; 93971; J2405; 96374; 96375; 99284; J7512

== ENCOUNTER 2021-04-17 11:07 | Inpatient (IN) | payer OTHER, MEDICARE ==
--- OUTSIDE RECORDS SUMMARY | 2021-04-17 11:10 | XMS REPORT | Continuity of Care Document ---
:1945 Author Organization [facility] t Address [facility] [place] [address] Care Team Providers Name Role Phone Asked, No Pcp Primary Care Physician Unavailable Francisca Attending Clinician Unavailable Doctor Unassigned, Name Attending Clinician Unavailable Meredith WILLIAM Attending Clinician Brooke Archer MD Attending Clinician [phone] [place] MOLINA Attending Clinician MD MEREDITH Attending Clinician Unavailable Cindy ANGELES Attending Clinician Unavailable MEREDITH Admitting Clinician Unavailable MD MEREDITH Admitting Clinician Unavailable Payers Payer Name Policy Type Policy Effective Date Expiration Date Sour ce Number MEDICAREMEDICARE PART [id number] 2011 Jesu Mcdermott AND 00:00:00 Spiritism [id number] 2011[place] [id number] 2020 [place] [id number] 00:00:00 Met ford 2020-PresentComme rcial Problems Condition Condition Condition Status Onset Resolution Last Treating Co mments Source Name Details Category Date Date Treatment Clinician Date ESRD (end ESRD (end Disease Active Overview: [place] stage stage 3-30 Formattin [facility] renal renal 00:00: g of this st disease) disease) 00 note might be different from the original. Added automatic ally from request for surgery [id number] Allergies, Adverse Reactions, Alerts Allergy Allergy Status Severity Reaction(s) Onset Inactive Treating Comm ents Source Name Type Date Date Clinician Lidocain Propensi Active Anaphylaxis 2020-0 [place] ty to 3-30 [facility] adverse 00:00: st reaction 00 s to drug Tetracyc Propensi Active Anaphylaxis [place] line ty to 3-30 [facility] adverse 00:00: st reaction 00 s to drug Fish FA Active SV 2020-0 [facility] 05-24 [place] 00:[facility] lidocain DA Active SV 2020-0 [facility] e 05-24 [place] 00:[facility]: [facility] tetracyc DA Active SV 2020-0 [facility] line 05-24 [place] 00:[facility]: [facility] corn FA Active SV 2020-0 [facility] 05-24 [place] 00:[facility] latex DA Active SV 2020-0 [facility] 05-24 [place] 00:[facility] 00 [facility] nut - FA Active U 2019-0 [facility] unspecif 05-24 [place] [facility] 00:00: Orth[facility] 00 dic Hospita [facility] [...] [facility] [place] latex DA Active SV 2020-0 [facility] 6-25 [facility] [place] Latex, Propensi Active Itching, 2017 [place] Natural ty to Shortness Of 7-14 Met hodi Rubber adverse Breath 00:00: st reaction 00 s to drug Family History Family Member Diagnosis Comments Start Date Stop Date Source Natural father Alcohol abuse [place] [facility] Natural mother Alcohol abuse [place] [facility] Natural mother Cancer [facility] thodist Social History Social Habit Start Date Stop Date Quantity Comments Source History of tobacco Current smoker Jesu padilla [facility] use Cigarettes smoked 2021-02-14 2021-02-14 Oneil Nogueraist current (pack per 00:00:00 00:00:00 day) - Reported Cigarette 2021-02-14 2021-02-14 Oneil Noguera ist pack-years 00:00:00 00:00:00 Tobacco use and 2021-02-14 2021-02-14 Never used Oneil Mancuso ethodist exposure 00:00:00 00:00:00 Alcohol intake 2021-02-14 2021-02-14 Ex-drinker Oneil Tx thodist 00:00:00 00:00:00 (finding) Sex [birth year] Oneil Mancuso ethodist 00:00:00 00:00:00 Smoking Status Start Date Stop Date Source Former smoker 2021-02-14 00:00:00 2021-02-14 00:00:00 Oneil Nogueraist Medications Ordered Filled Start Stop Current Ordering Indication Dosage Frequency Signature Comments Components Source Medication Medication Date Date Medication? Clinician (SIG) Name Name pregabalin Yes 100mg Take 100 Ho randy (LYRICA) 4-17 mg by [facility] 100 MG 03:04: mouth. st capsule 16 folic Yes Take by [place] acid/vit B 4-17 mouth. [facility] complex and 03:04: st C 16 (SABIHA-DEMAR ORAL) cholecalcif Yes 400U QD Take 400 Ho randy jaciel, 4-17 Units by [facility] vitamin D3, 03:04: mouth st 400 unit 16 daily. tablet metoprolol Yes 50mg Q.5D Take 50 mg [place] tartrate 2-02 by mouth 2 Metho di (LOPRESSOR) 00:00: (two) st 50 mg 00 times a tablet day with meals. albuterol Yes EVERY 6 [place] (PROAIR 8-19 HOURS Method[facility] HFA) 90 00:00: NEEDED st mcg/actuati 00 on inhaler Vital Signs Vital Name Observation Time Observation Value Comments Source Systolic blood 2021-02-14 06:43:00 142 mm[Hg] [place] [facility] pressure Diastolic blood 2021-02-14 06:43:00 83 mm[Hg] [place] [facility] pressure Heart rate 2021-02-14 06:43:00 106 /min Oneil Escobedo Body temperature 2021-02-14 06:43:00 36.67 Martha Abhijeet Escobedo Respiratory rate 2021-02-14 06:43:00 14 /min Abhijeet Escobedo Body height 2021-02-14 06:43:00 167.6 cm Oneil Escobedo Body weight 2021-02-14 06:43:00 65.772 kg Oneil Escobedo BMI 2021-02-14 06:43:00 23.40 kg/m2 Oneil Escobedo Oxygen saturation in 2021-02-14 06:43:00 99 /min Oneil Escobedo Arterial blood by Pulse oximetry Procedures Procedure Date / Time Performing Clinician Source Performed ESTIMATED GFR 2021-02-14 06:53:00 Amarjit Harper POC PANEL 2021-02-14 06:53:00 Amarjit Harper BASIC METABOLIC PANEL 2021-02-14 06:40:00 Amarjit Harper ABO AND RH CONFIRMATION 2021-02-14 06:40:00 Amarjit Harper ESTIMATED GFR 2021-02-14 06:40:00 Amarjit Harper XR CHEST 2 VW 2021-02-12 16:56:58 Amarjit Harper ECG PRE/POST OP 2021-02-12 15:37:03 Amarjit Harper COVID-19 QUALITATIVE PCR 2021-02-12 15:19:00 Amarjit Harper PARTIAL THROMBOPLASTIN 2021-02-12 15:19:00 Amarjit Harper on Spiritism TIME (PTT) PROTHROMBIN TIME WITH INR 2021-02-12 15:19:00 Amarjit Harper HC COMPLETE BLD COUNT 2021-02-12 15:19:00 Amarjit Harper W/AUTO DIFF TYPE AND SCREEN 2021-02-12 15:19:00 Amarjit Harper MWS - HEMOGLOBIN A1C 2021-02-12 15:19:00 Oneil El VEIN MAPPING UPPER 2021-01-29 15:00:47 Meredith, Amarjit [place] [facility] EXTREMITY BILATERAL Plan of Care Planned Activity Planned Date Details Comments Source Future Scheduled 2021-06-02 INFLUENZA VACCINE [place] [facility] Test 00:00:00 [code = INFLUENZA VACCINE] Future Scheduled 1996 BREAST CANCER [facility] thodist Test 00:00:00 SCREENING [code = BREAST CANCER SCREENING] Future Scheduled 1996 COLONOSCOPY SCREENING [facility] Test 00:00:00 [code = COLONOSCOPY SCREENING] Future Scheduled 1996 SHINGLES VACCINES (#1) [place] [facility] Test 00:00:00 [code = SHINGLES VACCINES (#1)] Future Scheduled 1964 Hepatitis C screening [place] [facility] Test 00:00:00 (procedure) [code = 190700266] Future Scheduled 1958 COVID-19 VACCINE (1) [place] [facility] Test 00:00:00 [code = COVID-19 VACCINE (1)] Future Scheduled 1952 65+ PNEUMOCOCCAL [place] [facility] Test 00:00:00 VACCINE (1 of 4 - PCV13) [code = 65+ PNEUMOCOCCAL VACCINE (1 of 4 - PCV13)] Encounters Start End Encounter Admission Attending Care Care Encounter Source Date/Time Date/Time Type Type Clinicians Facility Department ID 2021-03-01 2021-03-01 Orders Doctor DAFNE [id number] 00:00:00 00:00:00 Only Unassigned, NASIMA [id number] [place] [facility] [id number] 2021-02-14 2021-02-14 Outpatient [facility] [id number] [place] 00:00:00 00:00:[address] 2021-02-12 2021-02-12 Outpatient MEREDITH [facility] [id number] [place] 00:00:00 00:00:[address] 2021-02-12 2021-02-12 [facility] [id number] [place] 00:00:00 00:00:[address] 2021-01-29 2021-01-29 [facility] [id number] [place] 00:00:00 00:00:[address] 2021-01-292021-01-29 Outpatient AMARJIT HARPER [facility] [id number] [place] 00:00:00 00:00:[address] Results Test Description Test Time Test Comments Results Result Comments Source ECG Pre/Post Op 2021-02-14 12:56:10 Test Item Value Reference Range Interpretation Comme nts Ventricular rate (test code = 253) 97 Atrial rate (test code = 255) 97 QRSD interval (test code = 260) 82 QT interval (test code = 264) 330 QTC interval (test code = 265) 419 QRS axis 1 (test code = 268) 71 T wave axis (test code = 270) 125 EKG impression (test code = 273) Atrial fibrillation-Low voltage QR S-Cannot rule out Anteroseptal infarct , age undetermined-Abnormal ECG-No previous ECGs available- Oneil CrewsXzxhjtwnnYLPV-NuJ-4 (COVID-19) RNA [Presence] in Respiratory specimen by VANESSA with probe [id number] 01:26:17 Test Item Value Reference Range Interpretation Comments SARS-CoV-2 (COVID-19) RNA Not detected Not-Detected [Presence] in Respiratory specimen by VANESSA with probe detection (test code = 43054-0) XR Chest 2 [id number] 16:59:53Hm Interface, Radiology Results Incoming - 02/12/2021 5:02 PM CDT TWO VIEW CHEST, 02/12/2021linical history: Preoperative evaluationTechnique: PA and lateral views chest.Comparison: NoneDISCUSSION:Small left pleural effusion versus pleural thickening; trace right effusion. Left midlung calcified granuloma. Minimal basilar volume loss; lungs otherwise clear. Cardiomegaly. Normal central vasculature. Right internal jugular tunnel dialysis catheter with tips at the low SVC. Right distal clavicle erosion, partially imaged. Multilevel cervical fusion.IMPRESSION:1.Cardiomegaly and small pleural effusions without overt pulmonary edema.2.Right distal clavicle erosion with subluxation of the clavicle relative to the acromion. Dedicated shoulder radiographs are recommended. Erosive arthropathy or osteomyelitis are in the differential diagnosis.Oneil EscobedoUs vein mapping upper extremity 2021-01-29 15:12:46Hm Interface, Radiology Results Incoming - 01/29/2021 3:15 PM CDT EXAM: Bilateral upper extremity vein mappingHISTORY: End-stage renal diseaseTECHNIQUE: Bilateral upper extremity venous duplex ultrasound with color flow and Doppler imaging obtained for vein mapping.IMPRESSION:1.There is no deep venous or superficial vein thrombus in the upper extremities. The right and left internal jugular, subclavian, axillary, brachial, radial, ulnar, basilic, and cephalic veins are patent with no visible thrombus.2.Bilateral upper extremity vein mapping was performed and was the following:RIGHT ARM--Size(mm)--DEPTH FROM SKIN(mm)Above the antecubital fossa:Brachial at antecubital: 2.8 mm -- 8.0 mmMedian antecubital: 3.2 mm -- 2.5 mmCephalic antecubital: 2.8 mm -- 2.3 mmCephalic mid arm: 2.7 mm -- 2.3 mmCephalic proximal: 3.2 mm -- 3.3 mmBasilic antecubital: 3.0 mm -- 3.7 mmBasilic mid arm: 3.8 mm -- 7.9 mmBasilic proximal: 6.6 mm -- 7.8 mmBelow antecubital fossa:Cephalic wrist: 2.0 mm -- 1.5 mmCephalic mid forearm: 3.5 mm -- 2.2 mmBasilic wrist: 1.1 mm -- 1.3 mmBasilic mid forearm: 1.0 mm -- 1.2 mmArteries--Size(mm):Radial artery: 1.6 mmUlnar artery: 1.8 mmBrachial artery: 3.6 mmLEFT ARM--Size(mm)--DEPTH FROM SKIN(mm)Above the antecubital fossa:Brachial at antecubital: 3.1 mm -- 7.0 mmMedian antecubital: 1.3 mm -- 4.5 mmCephalic antecubital: 3.0 mm -- 2.4 mmCephalic mid arm: 2.8 mm -- 2.4 mmCephalic proximal: 3.3 mm -- 3.5 mmBasilic antecubital: 2.7 mm -- 9.9 mmBasilic mid arm: 2.7 mm -- 10.9 mmBasilic proximal: 4.8 mm -- 9.9 mmBelow antecubital fossa:Cephalic wrist: 1.7 mm -- 1.9 mmCephalic mid forearm: 3.0 mm -- 2.4 mmBasilic wrist: 0.5 mm -- 1.5 mmBasilic mid forearm: 0.6 mm -- 1.6 mmArteries--Size(mm):Radial artery: 1.9 mmUlnar artery: 1.5 mmBrachial artery: 3.6 mmSUM[facility] [id number] Spiritism BASIC METABOLIC [id number] 06:38:00 Test Item Value Reference Range Interpretation Comments SODIUM (test code = 138 mmol/L 136-145 N NA) POTASSIUM (test code = 4.1 mmol/L 3.5-5.1 N K) CHLORIDE (test code = 103.0 mmol/L 98-107 N CL) CARBON DIOXIDE (test 24.0 mmol/L 21-32 N code = CO2) GLUCOSE (test code = 177 mg/dL 70-110 H GLU) BLOOD UREA NITROGEN 15 mg/dL 7-18 N (test code = BUN) GLOMERULAR FILTRATION 42.4 >60 Unit o f measure: RATE (test code = GFR) mL/mi n/1.73 [id number] Range:Healthy Adults >90 mL/min/1.73 m2 For Chronic Kidney Disease: St age II Mild Decrease in GFR 60-90 St age III Moderate Decrease in GFR 30-59 Stage IV Severe Decre ase in GFR 15- 29 Stage V Kidney Failure <15 CREATININE (test code 1.24 mg/dL 0.55-1.30 N = CREAT) CALCIUM (test code = 10.0 mg/dL 8.2-10.1 N CA) HGB [id number] 05:58:00 Test Item Value Reference Range Interpretation Comments HEMOGLOBIN (test code = HGB) 10.5 g/dL 12-16 L HEMATOCRIT (test code = HCT) 32.3 % 37-47 L COVID 19 Asymptomatic IH [id number] 21:16:00 Test Item Value Reference Range Interpretation Comments COVID 19 Asymptomatic IH AG (test NEGATIVE code = COVNONPUIAG) CBC W/AUTO [id number] 11:42:00 Test Item Value Reference Range Interpretation [...] % 0-0 N code = NRBC) PROTHROMBIN [id number] 11:35:00 Test Item Value Reference Range Interpretation [...] BLOOD, PT every other day NTHROMBOPLASTIN TIME [id number] 11:35:00 Test Item Value Reference Range Interpretation Comments PTT ACTIVATED (test code = APTT) 34.1 secs 24.9-37.0 N IS PATIENT ON ANTICOAGULANTS ? NHas Lab been notified if Patient is on Heparin Drip? NOIf Yes, orderCBC, OCCULT BLOOD, PT every other day NBASIC METABOLIC [id number] 11:35:00 Test Item Value Reference Range Interpretation [...] RATE (test code = GFR) mL/mi n/1.73 i1Plfaoxvaq Range:Healthy Adults >90 mL/min/1.73 m2 For Chronic Kidney Disease: St age II Mild Decrease in GFR 60-90 St age III Moderate Decrease in GFR 30-59 Stage IV Severe Decre ase in GFR 15- 29 Stage V Kidney Failure <15 CREATININE (test code 0.84 mg/dL 0.55-1.30 N = CREAT) CALCIUM (test code = 9.9 mg/dL 8.2-10.1 N CA) - MRI C-SPINE W/O [id number] 10:52:00 Patient Name: BIBI BUSTAMANTE Unit No: [id number] EXAMS: CPT CODE: [id number] MRI C-SPINE W/O CONT [id number] MRI OF THE CERVICAL SPINE: DIAGNOSIS: 1. At C2- 3, mild disc degeneration. No central canal stenosis. [...] MD CC: Fede Bahena MD Technologist: Kelley Parr(Kait) Transcribed D/ (1052) [facility] BIBI [facility]AMANTE [address] [facility] PHYS: Fede Bustamante : 1945GE: 74 SEX: F [place], [place] [address] LOC: Y.MRI PHONE #: [phone] EXAM DATE: 04/18/2020 STATUS: REG CLI FAX #: [phone] RAD #: D/C DT PAGE 1 Signed Report Patient Name: BIBI BUSTAMANTE Unit No: [id number] EXAMS: CPT CODE: [id number] MRI C-SPINE W/O CONT [id number] <Continued> Orig Print D/T: S: 04/18/2020 (1055) [facility] NAME: BIBI BUSTAMANTE [address] [facility] PHYS: Krishna Bustamante : 1945 AGE: 74 SEX: F [place] LOC: Y.MRI PHONE #: [phone] EXAM DATE: 04/18/2020 STATUS: REG CLI FAX #: [phone] RAD #: D/C DT PAGE 2 Signed Report
[2021-04-17 12:49] LABS: Protime INR 1.34
[2021-04-17 13:01] LABS: Basophils % 0.9 % (0-1.3); Hematocrit 30.5 % (36.0-45.0); Lymphocytes % 17.9 % (15.3-44.8); MPV 8.1 fL (7.6-11.3); RBC Red Blood Cell Count 3.16 M/uL (3.86-4.86)
[2021-04-17 13:16] LABS: ALT/SGPT 12 U/L (12-78); AST/SGOT 16 U/L (15-37); Albumin 2.1 g/dL (3.4-5.0); Alkaline Phosphatase 127 U/L (45-117); BUN Blood Urea Nitrogen 42 mg/dL (7-18); Bicarbonate 23 mmol/L (21-32); Bilirubin Direct 0.2 mg/dL (0-0.2); Bilirubin Total 0.5 mg/dL (0.2-1.0); Glucose Level 73 mg/dL (74-106); Potassium 4.3 mmol/L (3.5-5.1); Protein, Total 8.3 g/dL (6.4-8.2); Sodium Level 133 mmol/L (136-145); Troponin (Emerg Dept Use Only) 0.05 ng/mL (0.0-0.045)
[2021-04-17 13:18] LABS: NT PRO-BNP > 175000 pg/mL (<125)
--- NOTE | 2021-04-17 13:37 | RAD REPORT ---
EXAM DESCRIPTION: RAD - Chest Single View - 04/17/2021 1:24 pm CLINICAL HISTORY: weakness Chest pain. COMPARISON: Chest Single View dated 11/05/2020; Chest Single View dated 08/09/2020; Chest Single View d ated 08/07/2020; Chest Single View dated 06/20/2020 FINDINGS: Portable technique limits examination quality. Mild interstitial pulmonary edema seen. Small - moderate left pleural effusion is noted. The heart is moderately enlarged. Sided venous catheter tip in the SVC.
[2021-04-17] MEDS ORDERED: ONDANSETRON 4 MG/2 ML VIAL IV PRN (13:47)
--- NOTE | 2021-04-17 13:59 | EDPHYS ---
Physician Documentation [facility] [place] Name: Bhavani Dupont Age: 75 yrs Sex: Female : 1945 Arrival Date: 04/17/2021 Time: 11:09 Bed 24 Private MD: Socorro Mehta; Leif Damon ED Physician Romel Honeycutt HPI: 04/17 12:21 This 75 yrs old Female presents to ER via Wheelchair with complaints of jmm Weakness. 12:21 The patient presents to the emergency department with weakness of the. Onset: The jmm symptoms/episode began/occurred gradually, 3 month(s) ago. Associated signs and symptoms: Pertinent negatives: altered mental status, chills, dizziness, fever, headache, seizure, syncope. This is a 75 year old female with a history of ESRD that presents to the ED with complaints of worsening weakness over the past 3 months. Denies an acute change. States it has become harder to do her ADL's. Denies focal deficits, acute sob, dysuria. . Historical: - Allergies: 11:52 all fish; ca1 11:52 CORN CONTAINING PRODUCTS; ca1 11:52 Latex, Natural Rubber; ca1 11:52 Lidocaine; ca1 11:52 TETRACYCLINES; ca1 - PMHx: 11:52 Asthma; Chronic hand pain; DIALYSIS MWF; ca1 - PSHx: 11:52 L knee replacement; ca1 - Immunization history:: Client reports receiving the 2nd dose of the Covid vaccine, Client reports receiving the 1st dose of the Covid vaccine, Pneumococcal vaccine is up to date, Flu vaccine is up to date. - Social history:: Smoking status: Patient/guardian denies using tobacco, the patient reports quitting approximately 50 years ago. ROS: 12:21 Constitutional: Positive for fatigue. jmm 12:21 Respiratory: Negative for shortness of breath. 12:21 MS/extremity: Positive for swelling. 12:21 All other systems are negative. Exam: 12:21 Constitutional: This is a well developed, well nourished patient who is awake, alert, jmm and in no acute distress. Head/Face: atraumatic. Eyes: EOMI, no conjunctival erythema appreciated ENT: Moist Mucus Membranes Neck: Trachea midline, Supple Chest/axilla: Normal chest wall appearance and motion. Cardiovascular: Regular rate and rhythm. No edema appreciated Respiratory: Normal respirations, no respiratory distress appreciated Abdomen/GI: Non distended, soft Back: Normal ROM Skin: General appearance color normal 12:21 Musculoskeletal/extremity: bilateral pitting edema, full dorsalis pulse bilaterally. 12:21 Skin: Appearance: Color: normal in color. 12:21 Neuro: Orientation: is normal, Mentation: is normal, Memory: is normal, Motor: is normal. Vital Signs: 11:50 BP 106 / 76; Pulse 96; Resp 18; Temp 97.6(TE); Pulse Ox 99% ; Height 5 ft. 6 in. ca1 (167.64 cm) (R); 12:15 BP 111 / 89; Pulse 81; Resp 20; Pulse Ox 100% on R/A; kg 12:30 BP 97 / 65; Pulse 85; Resp 22; Pulse Ox 99% on R/A; kg 13:30 BP 108 / 68; Pulse 79; Resp 20; Pulse Ox 100% on R/A; kg 14:00 BP 108 / 78; Pulse 87; Resp 20; Pulse Ox 100% on R/A; kg 15:00 BP 114 / 60; Pulse 84; Resp 20; Pulse Ox 97% on R/A; kg 16:00 BP 113 / 78; Pulse 81; Resp 20; Pulse Ox 100% on R/A; kg 17:15 BP 110 / 74; Pulse 78; Resp 20; Pulse Ox 100% on R/A; kg MDM: 12:21 Patient medically screened. [facility] 13:56 Data reviewed: vital signs, nurses notes. Counseling: I had a detailed discussion with kendall the patient and/or guardian regarding: the historical points, exam findings, and any diagnostic results supporting the discharge/admit diagnosis, lab results, the need for further work-up and treatment in the hospital. ED course: I discussed the patient with Dr. Edward whom accepted the patient for admission. . 04/17 12:21 Order name: Basic Metabolic Panel [facility] 04/17 12:21 Order name: CBC with Diff [facility] 04/17 12:21 Order name: LFT's; Complete Time: 13:31 [facility] 04/17 12:21 Order name: Magnesium; Complete Time: 13:31 [facility] 04/17 12:21 Order name: NT PRO-BNP; Complete Time: 13:31 [facility] 04/17 12:21 Order name: PT-INR; Complete Time: 13:11 [facility] 04/17 12:21 Order name: Troponin (emerg Dept Use Only); Complete Time: 13:31 [facility] 04/17 12:21 Order name: XRAY Chest (1 view); Complete Time: 13:39 [facility] 04/17 12:21 Order name: Basic Metabolic Panel; Complete Time: 13:31 [facility] 04/17 12:21 Order name: CBC with Automated Diff; Complete Time: 13:11 [facility] 04/17 13:50 Order name: Comprehensive Metabolic Panel [facility] 04/17 13:50 Order name: Comprehensive Metabolic Panel [facility] 04/17 13:50 Order name: CBC with Automated Diff [facility] 04/17 13:50 Order name: CBC with Automated Diff [facility] 04/17 12:21 Order name: EKG; Complete Time: 12:22 [facility] 04/17 12:21 Order name: Cardiac monitoring; Complete Time: 13:17 [facility] 04/17 12:21 Order name: EKG - Nurse/Tech; Complete Time: 13:17 [facility] 04/17 12:21 Order name: IV Saline Lock; Complete Time: 13:17 [facility] 04/17 12:21 Order name: Labs collected and sent; Complete Time: 13:19 [facility] 04/17 12:21 Order name: O2 Per Protocol; Complete Time: 13:19 [facility] 04/17 12:21 Order name: O2 Sat Monitoring; Complete Time: 13:19 [facility] 04/17 13:50 Order name: CONS Physician Consult; Complete Time: 14:25 [facility] 04/17 13:50 Order name: Renal EDMS Administered Medications: No medications were administered Disposition: 04/18 07:25 Co-signature as Attending Physician, Romel Honeycutt MD I agree with the assessment and kdr plan of care. Disposition: 04/17/21 13:58 Hospitalization ordered by Marck Edward for Observation. Preliminary diagnosis is Acute combined systolic (congestive) and diastolic (congestive) heart failure. - Bed requested for Telemetry/MedSurg (observation). - Status is Observation. kg - Condition is Stable. - Problem is new. - Symptoms are unchanged. Signatures: Dispatcher [employer] EDMS Sahara Jin Diana, RN RN dw Rittger, Kevin, MD MD [facility], Raghavendra, PA PA [facility] July Santiago RN RN ca1 Elisa De La Paz RN RN kg Corrections: (The following items were deleted from the chart) 04/17 17:20 13:58 Hospitalization Ordered by Marck Edward MD for Observation. Preliminary bd diagnosis is Acute combined systolic (congestive) and diastolic (congestive) heart failure. Bed requested for Telemetry/MedSurg (observation). Status is Observation. Condition is Stable. Problem is new. Symptoms are unchanged. jm 17:20 17:20 04/17/2021 13:58 Hospitalization Ordered by Marck Edward MD for Observation. dw Preliminary diagnosis is Acute combined systolic (congestive) and diastolic (congestive) heart failure. Bed requested for Telemetry/MedSurg (observation). Status is Observation. Condition is Stable. Problem is new. Symptoms are unchanged. bd 17:50 17:20 04/17/2021 13:58 Hospitalization Ordered by Marck Edward MD for Observation. kg Preliminary diagnosis is Acute combined systolic (congestive) and diastolic (congestive) heart failure. Bed requested for Telemetry/MedSurg (observation). Status is Observation. Condition is Stable. Problem is new. Symptoms are unchanged. dw
--- NOTE | 2021-04-17 13:59 | ER ---
Nurse's Notes [facility] Name: Bhavani Dupont Age: 75 yrs Sex: Female : 1945 Arrival Date: 04/17/2021 Time: 11:09 Bed 24 Private MD: Socorro Mehta; Leif Damon Diagnosis: Acute combined systolic (congestive) and diastolic (congestive) heart failure Presentation: 04/17 11:50 Chief complaint: Patient states: been weaker and weaker each day since a month ago. Am ca1 supposed to be on dialysis today but am too weak to go. Coronavirus screen: Client denies travel out of the [place] in the last 14 days. At this time, the client does not indicate any symptoms associated with coronavirus-19. Ebola Screen: Patient negative for fever greater than or equal to 101.5 degrees Fahrenheit, and additional compatible Ebola Virus Disease symptoms Patient denies exposure to infectious person. Patient denies travel to an Ebola-affected area in the 21 days before illness onset. No symptoms or risks identified at this time. Initial Sepsis Screen: Does the patient meet any 2 criteria? No. Patient's initial sepsis screen is negative. Does the patient have a suspected source of infection? No. Patient's initial sepsis screen is negative. Risk Assessment: Do you want to hurt yourself or someone else? Patient reports no desire to harm self or others. Onset of symptoms was April 17, 2021. 11:50 Method Of Arrival: Wheelchair ca1 11:50 Acuity: IGOR 3 ca1 Historical: - Allergies: 11:52 all fish; ca1 11:52 CORN CONTAINING PRODUCTS; ca1 11:52 Latex, Natural Rubber; ca1 11:52 Lidocaine; ca1 11:52 TETRACYCLINES; ca1 - PMHx: 11:52 Asthma; Chronic hand pain; DIALYSIS MWF; ca1 - PSHx: 11:52 L knee replacement; ca1 - Immunization history:: Client reports receiving the 2nd dose of the Covid vaccine, Client reports receiving the 1st dose of the Covid vaccine, Pneumococcal vaccine is up to date, Flu vaccine is up to date. - Social history:: Smoking status: Patient/guardian denies using tobacco, the patient reports quitting approximately 50 years ago. Screenin:43 Abuse screen: Denies threats or abuse. Denies injuries from another. Nutritional kg screening: No deficits noted. Tuberculosis screening: No symptoms or risk factors identified. Fall Risk No fall in past 12 months (0 pts). No secondary diagnosis (0 pts). IV access (20 points). Ambulatory Aid- None/Bed Rest/Nurse Assist (0 pts). Gait- Weak (10 pts.). Mental Status- Oriented to own ability (0 pts). Total Prakash Fall Scale indicates No Risk (0-24 pts). Assessment: 12:25 General: Appears emaciated, Behavior is calm, cooperative, quiet. Pain: Complains of kg pain in Hands, back, Right shoulder, buttock Pain radiates to Generalized Pain currently is 4 out of 10 on a pain scale. at worst was 9 out of 10 on a pain scale. level that patient reports is acceptable is 2 out of 10 on a pain scale. Quality of pain is described as burning, aching, Pain began For the last month its just been getting worse. Neuro: Level of Consciousness is awake, alert, obeys commands, Oriented to person, place, time, situation, Appropriate for age Coordinator Volunteer Services are equal bilaterally weak bilaterally Generalized weakness. Gait is unsteady, Speech is normal, Facial symmetry appears normal, Tingling in right hand and left hand Burning in right hand and left hand Numbness in right hand and left hand. Cardiovascular: No deficits noted. Heart tones S1 S2 Capillary refill is > 3 seconds Rhythm is regular. Cardiovascular: Edema is 4+ to left midcalf, left ankle, left foot, left toes, right midcalf, right ankle, right foot and right toes. Respiratory: No deficits noted. Airway is patent Trachea midline Respiratory effort is even, unlabored, relaxed, Breath sounds are clear bilaterally. GI: No deficits noted. : No deficits noted. EENT: No deficits noted. 12:25 Derm: Decubitus located on right left sacrum is stage II. Musculoskeletal: Reports kg weakness in Generalized. 14:32 Reassessment: Adjusted patient in bed. kg 15:03 Reassessment: Patient sitting on the side of bed eating lunch with her . . kg Vital Signs: 11:50 BP 106 / 76; Pulse 96; Resp 18; Temp 97.6(TE); Pulse Ox 99% ; Height 5 ft. 6 in. ca1 (167.64 cm) (R); 12:15 BP 111 / 89; Pulse 81; Resp 20; Pulse Ox 100% on R/A; kg 12:30 BP 97 / 65; Pulse 85; Resp 22; Pulse Ox 99% on R/A; kg 13:30 BP 108 / 68; Pulse 79; Resp 20; Pulse Ox 100% on R/A; kg 14:00 BP 108 / 78; Pulse 87; Resp 20; Pulse Ox 100% on R/A; kg 15:00 BP 114 / 60; Pulse 84; Resp 20; Pulse Ox 97% on R/A; kg 16:00 BP 113 / 78; Pulse 81; Resp 20; Pulse Ox 100% on R/A; kg 17:15 BP 110 / 74; Pulse 78; Resp 20; Pulse Ox 100% on R/A; kg ED Course: 11:09 Patient arrived in ED. as 11:09 Socorro Mehta is Private Physician. as 11:09 Leif Damon DO is Private Physician. as 11:51 Triage completed. ca1 11:52 Arm band placed on right wrist. ca1 11:53 Raghavendra Saldaña PA is PHCP. jmm 11:54 Romel Honeycutt MD is Attending Physician. jmm 12:04 Elisa De La Paz RN is Primary Nurse. kg 12:25 Inserted saline lock: 20 gauge in left antecubital area, using aseptic technique. kg 12:44 Patient has correct armband on for positive identification. Fall risk band placed. kg Placed in gown. Bed in low position. Call light in reach. Side rails up X2. Adult w/ patient. 13:24 XRAY Chest (1 view) In Process Unspecified. EDMS 13:58 Marck Edward MD is Hospitalizing Provider. jmm 13:58 Basic Metabolic Panel Sent. kg 13:58 CBC with Diff Sent. kg 14:25 Comprehensive Metabolic Panel Sent. kg 15:00 CBC with Automated Diff Sent. kg 15:00 CBC with Automated Diff Sent. kg 17:39 No provider procedures requiring assistance completed. kg Administered Medications: No medications were administered Outcome: 13:58 Decision to Hospitalize by Provider. jmm 17:39 Admitted to Med/surg accompanied by nurse, accompanied by tech, via stretcher, room kg 219, Report called to Radha QUIÑONEZ Med Surg 17:39 Condition: stable 17:39 Instructed on the need for admit. 17:50 Patient left the ED. kg Signatures: Dispatcher [employer] EDMS Raghavendra Saldaña PA PA jmm Martinez, Amelia as Acob, Cheryl RN RN ca1 Elisa De La Paz RN RN kg
[2021-04-17] MEDS ORDERED: NA CHLORIDE 0.9% 1,000 ML IV PRN (17:19)
[2021-04-17] MEDS ORDERED: MANNITOL 25% 12.5 GM/50 ML VIAL IV PRN (17:19)
[2021-04-17] MEDS ORDERED: EPOETIN ALFA-EPBX 10,000 UNIT/ML VIAL SQ ONE (18:00)
[2021-04-17] MEDS ORDERED: MIDODRINE HCL 5 MG TABLET PO ONE (18:00)
[2021-04-17] MEDS: ALBUMIN HUMAN 25% 50 ML IV SCH (20:00)
[2021-04-17] MEDS: MORPHINE 2 MG/ML SYR IV PRN (20:06)
[2021-04-17] MEDS: ACETAMINOPHEN 500 MG TAB PO PRN (21:43)
[2021-04-17] MEDS ORDERED: EPOETIN ALFA-EPBX 10,000 UNIT/ML VIAL ONE (22:06)
[2021-04-18 02:39] VITALS: BMI 25.7
[2021-04-18 05:38] LABS: Absolute Lymphocytes (CBC) 1.1 K/uL (0.7-4.9); Basophils % 0.6 % (0-1.3); Hematocrit 26.9 % (36.0-45.0); MPV 8.3 fL (7.6-11.3); RBC Red Blood Cell Count 2.81 M/uL (3.86-4.86)
[2021-04-18 06:20] LABS: ALT/SGPT 14 U/L (12-78); AST/SGOT 18 U/L (15-37); Albumin 2.2 g/dL (3.4-5.0); Alkaline Phosphatase 120 U/L (45-117); BUN Blood Urea Nitrogen 30 mg/dL (7-18); Bicarbonate 24 mmol/L (21-32); Bilirubin Total 0.7 mg/dL (0.2-1.0); Glucose Level 59 mg/dL (74-106); NT PRO-BNP > 17500 pg/mL (<125); Phosphorus 6.2 mg/dL (2.5-4.9); Potassium 4.1 mmol/L (3.5-5.1); Protein, Total 7.8 g/dL (6.4-8.2); Sodium Level 134 mmol/L (136-145); Uric Acid 3.5 mg/dL (2.6-6.0)
--- NOTE | 2021-04-18 08:19 | EKG ---
Test Date: 2021-04-17 Test Time: 12:47:35 Iuss Analyst: JULIA MEASUREMENT RESULTS: Intervals: Rate: 96 VT: QRSD: 94 QT: 368 QTc: 464 [place]: P: VT: QRS: 26 T: 178 INTERPRETIVE STATEMENTS: Atrial fibrillation Cannot rule out Anterior infarct, age undetermined Abnormal ECG Compared to ECG 11/05/2020 10:54:10 No significant changes Electronically Signed On 04-18-21 08:18:10 CDT by Theron Mccain
[2021-04-18] MEDS: MIDODRINE HCL 5 MG TABLET PO PRN (14:05)
[2021-04-18] MEDS: ALBUMIN HUMAN 25% 100 ML IV SCH (15:47)
[2021-04-18] MEDS: MORPHINE 2 MG/ML SYR IV PRN ×2 (16:50→20:10)
[2021-04-18] MEDS: METOPROLOL TAR 50 MG TAB PO SCH (20:09)
[2021-04-18] MEDS: JUVEN PACKET PO SCH (20:10)
[2021-04-18] MEDS: Pregabalin [Lyrica] 25 MG Capsule PO SCH (20:11)
--- NOTE | 2021-04-18 21:06 | P.CNS ---
Date of Consult: 04/18/21 Reason for Consult: ESRD Requesting Physician: Marck Edward Chief Complaint: Weakness History of Present Illness: 75 yo WF CKD presented to the 3 months of moderate, progressive weakness with associate fatigue and edema. 12:21 This 75 yrs old Female presents to ER via Wheelchair with complaints of jmm Weakness. 12:21 The patient presents to the emergency department with weakness of the. Onset: The jmm symptoms/episode began/occurred gradually, 3 month(s) ago. Associated signs and symptoms: Pertinent negatives: altered mental status, chills, dizziness, fever, headache, seizure, syncope. This is a 75 year old female with a history of ESRD that presents to the ED with complaints of worsening weakness over the past 3 months. Denies an acute change. States it has become harder to do her ADL's. Denies focal deficits, acute sob, dysuria. Allergies Fish Containing Products Allergy (Verified 06/20/20 20:44) Anaphylaxis Latex, Natural Rubber Allergy (Verified 06/20/20 20:44) Itching/Hives/Rash lidocaine Allergy (Verified 06/20/20 20:44) Itching/Hives/Rash nut - unspecified Allergy (Verified 06/21/20 02:36) Anaphylaxis tetracycline Allergy (Verified 06/20/20 20:44) Itching/Hives/Rash corn Adverse Reaction (Verified 06/21/20 02:36) Itching/Hives/Rash Home medications list reviewed: Yes Home Medications: Metoprolol Tartrate 50 mg PO BID 04/18/21 Pregabalin [Lyrica] 25 mg PO BID 04/18/21 - Past Medical/Surgical History Diabetic: No -: Asthma -: End-stage renal disease on hemodialysis -: Atrial fibrillation not on chronic anti coagulation therapy -: CAD -: Chronic pain joints -: Cervical disc surgery -: Left knee replacement -: Tubal ligation Psychosocial/ Personal History: Patient lives at home with her . - Family History Father Medical History: Heart disease Mother Medical History: Cancer Notes: Lung - Social History Smoking Status: Never smoker Alcohol use: No CD- Drugs: No Caffeine use: Yes Place of Residence: Home Review of Systems 10-point ROS is otherwise unremarkable General: Weakness, Malaise Respiratory: SOB with Excertion Cardiovascular: Edema Neurological: Weakness Physical Examination Temp Pulse Resp BP Pulse Ox 98.1 F 90 18 124/74 98 04/18/21 20:00 04/18/21 20:09 04/18/21 20:00 04/18/21 20:00 04/18/21 20:00 General: Oriented x3, Cooperative HEENT: Atraumatic Neck: Supple Respiratory: Clear to auscultation bilaterally Cardiovascular: Regular rate/rhythm, Edema Gastrointestinal: Soft and benign, Non-distended Musculoskeletal: No clubbing, No contractures Integumentary: No rashes, No cyanosis Neurological: Normal speech Blood work reviewed in the chart. Imagings Data: EXAM DESCRIPTION: RAD - Chest Single View - 04/17/2021 1:24 pm CLINICAL HISTORY: weakness Chest pain. COMPARISON: Chest Single View dated 11/05/2020; Chest Single View dated 08/09/2020; Chest Single View dated 08/07/2020; Chest Single View dated 06/20/2020 FINDINGS: Portable technique limits examination quality. Mild interstitial pulmonary edema seen. Small - moderate left pleural effusion is noted. The heart is moderately enlarged. Sided venous catheter tip in the SVC. Conclusions/Impression: ESRD -Acute HD ordered Hyponatremia -Acute HD Diastolic CHF, A/C -Acute HD with UF -Give Albumin and Midodrine with HD Moderate malnutrition -Encourage nutrition Anemia in CKD -Give Retacrit LEA/ Secondary HyperPTH -Start Vitamin D -Start Renvela Thank you kindly for the consultation
--- NOTE | 2021-04-19 03:00 | P.HP ---
Certification for Inpatient Patient admitted to: Inpatient With expected LOS: >2 Midnights Patient will require the following post-hospital care: Shelter Practitioner: I am a practitioner with admitting privileges, knowledge of patient current condition, hospital course, and medical plan of care. Services: Services provided to patient in accordance with Admission requirements found in Title 42 Section 412.3 of the Code of Federal Regulations Patient History Date of Service: 04/17/21 Reason for admission: Generalized weakness; bilateral lower extremity edema History of Present Illness: Patient is a 75-year-old female who has a history of end-stage renal disease who has slowly been declining. Her clinical symptoms have been gradually worsening. According to the and the patient she has had numerous hospitalizations recently. She is no longer really able to get out of her wheelchair and transfer into a vehicle. She used to be able to ambulate a few steps but over the last few weeks this is been very difficult for her. They brought her to the hospital because she was not able to get into the wheelchair to go the hemodialy sis. According to the she has gotten very weak and no longer ambulates. She is having a difficult time even transferring. He is no longer able the help her get into the wheelchair as he is elderly. She came to the emergency room for further evaluation. She had recent Doppler as she has significant edema over lower extremity. Venous Doppler was negative the left lower extremity. Allergies Fish Containing Products Allergy (Verified 06/20/20 20:44) Anaphylaxis Latex, Natural Rubber Allergy (Verified 06/20/20 20:44) Itching/Hives/Rash lidocaine Allergy (Verified 06/20/20 20:44) Itching/Hives/Rash nut - unspecified Allergy (Verified 06/21/20 02:36) Anaphylaxis tetracycline Allergy (Verified 06/20/20 20:44) Itching/Hives/Rash corn Adverse Reaction (Verified 06/21/20 02:36) Itching/Hives/Rash Home Medications: Metoprolol Tartrate 50 mg PO BID 04/18/21 Pregabalin [Lyrica] 25 mg PO BID 04/18/21 - Past Medical/Surgical History Has patient received pneumonia vaccine in the past: Yes Diabetic: No -: Asthma -: End-stage renal disease on hemodialysis -: Atrial fibrillation not on chronic anti coagulation therapy -: CAD -: Chronic pain joints -: Cervical disc surgery -: Left knee replacement -: Tubal ligation Psychosocial/ Personal History: Patient lives at home with her . - Family History Father Medical History: Heart disease Mother Medical History: Cancer Notes: Lung - Social History Alcohol use: No CD- Drugs: No Caffeine use: Yes Place of Residence: Home Review of Systems 10-point ROS is otherwise unremarkable Physical Examination - Vital Signs Temperature: 97.8 F Blood Pressure: 118/83 Pulse: 92 Respirations: 19 Pulse Ox (%): 98 - Physical Exam General: Alert, In no apparent distress, Oriented x3 HEENT: Atraumatic, PERRLA, Mucous membr. moist/pink, EOMI, Sclerae nonicteric Neck: Supple, 2+ carotid pulse no bruit, No LAD, Without JVD or thyroid abnormality Respiratory: Clear to auscultation bilaterally, Normal air movement Cardiovascular: Regular rate/rhythm, Normal S1 S2, Systolic murmur Gastrointestinal: Normal bowel sounds, Soft and benign, Non-distended, No tenderness Musculoskeletal: No clubbing, Swelling, Tenderness Integumentary: No rashes, Tenderness/swelling Neurological: Normal speech, Cranial nerves 3-12 intact, Abnormal gait, Abnormal strength, Abnormal tone, Abnormal reflexes, Abnormal affect Lymphatics: No axilla or inguinal lymphadenopathy Assessment & Plan - Problems (Diagnosis) (1) Generalized weakness Current Visit: Yes Status: Acute (2) Myopathy Current Visit: Yes Status: Acute (3) Atrial fibrillation Current Visit: No Status: Acute (4) ESRD (end stage renal disease) Current Visit: No Status: Acute (5) HTN (hypertension) Current Visit: No Status: Acute (6) Hyponatremia Current Visit: No Status: Acute (7) Neuropathy of both upper extremities Current Visit: No Status: Acute - Plan Plan: 1. Hemodialysis per Nephrology 2. Physical therapy evaluation 3. Check thyroid studies and cortisol studies. Check nutritional status 4. Strict blood pressure and blood sugar control 5. Case management consultation for [facility] facility placement 6. Doppler of the right lower extremity. Left lower extremity venous Doppler was negative 7. GI and DVT prophylaxis Discharge Plan: [facility] Plan to discharge in: Greater than 2 days - Advance Directives Does patient have a Living Will: No Does patient have a Durable POA for Healthcare: No - Code Status/Comfort Care Code Status Assessed: Yes Code Status: Full Code Critical Care: No Time Spent Managing PTS Care (In Minutes): 45
--- NOTE | 2021-04-19 03:06 | P.PN ---
Subjective Date of Service: 04/18/21 Patient is clinically doing better. She was dialyzed but she is still very weak. Physical therapy consultation pending. Myopathy workup pending. Patient's long-term prognosis is poor. If her strength continues to diminish and her medical condition is not reversible then would advise hospice care. Review of Systems 10-point ROS is otherwise unremarkable Physical Examination - Vital Signs Temperature: 97.8 F Blood Pressure: 118/83 Pulse: 92 Respirations: 19 Pulse Ox (%): 98 - Physical Exam General: Alert, In no apparent distress HEENT: Atraumatic, PERRLA, EOMI Neck: Supple, JVD not distended Respiratory: Clear to auscultation bilaterally, Normal air movement Cardiovascular: Regular rate/rhythm, Normal S1 S2 Gastrointestinal: Normal bowel sounds, No tenderness Musculoskeletal: No tenderness Integumentary: No rashes Neurological: Normal speech, Normal tone, Normal affect Lymphatics: No axilla or inguinal lymphadenopathy - Studies Medications List Reviewed: Yes Assessment & Plan - Problems (Diagnosis) (1) Generalized weakness Current Visit: Yes Status: Acute (2) Myopathy Current Visit: Yes Status: Acute (3) Atrial fibrillation Current Visit: No Status: Acute (4) ESRD (end stage renal disease) Current Visit: No Status: Acute (5) HTN (hypertension) Current Visit: No Status: Acute (6) Hyponatremia Current Visit: No Status: Acute (7) Neuropathy of both upper extremities Current Visit: No Status: Acute - Plan Plan: 1. Hemodialysis per Nephrology 2. Physical therapy evaluation 3. Check thyroid studies and cortisol studies. Check nutritional status 4. Strict blood pressure and blood sugar control 5. Case management consultation for care home facility placement 6. Doppler of the right lower extremity. Left lower extremity venous Doppler was negative 7. GI and DVT prophylaxis - Advance Directives Does patient have a Living Will: No Does patient have a Durable POA for Healthcare: No - Code Status/Comfort Care Code Status: Full Code
[2021-04-19 06:24] LABS: Absolute Lymphocytes (CBC) 0.9 K/uL (0.7-4.9); Basophils % 0.7 % (0-1.3); Hematocrit 28.2 % (36.0-45.0); Lymphocytes % 11.4 % (15.3-44.8); MPV 8.1 fL (7.6-11.3); RBC Red Blood Cell Count 2.95 M/uL (3.86-4.86)
[2021-04-19 07:13] LABS: C-Reactive Protein 33.7 mg/L (<3.00); Folic Acid, (Folate) 5.9 ng/mL (3.1-17.5); Magnesium 2.1 mg/dL (1.8-2.4); Potassium 4.4 mmol/L (3.5-5.1)
[2021-04-19 07:15] LABS: Thyroid Stimulating Hormone 4.38 uIU/mL (0.360-3.740)
[2021-04-19] MEDS: SEVELAMER CARBONATE 800 MG TABLET PO SCH ×4 (07:58→16:45)
[2021-04-19] MEDS: CALCITROL 0.25 MCG CAP PO SCH ×2 (07:58→08:49)
[2021-04-19] MEDS: Pregabalin [Lyrica] 25 MG Capsule PO SCH ×2 (07:59→20:42)
[2021-04-19] MEDS: JUVEN PACKET PO SCH ×3 (07:59→20:41)
[2021-04-19] MEDS: VITAMIN D 5,000 UNIT CAP PO SCH ×2 (07:59→08:49)
[2021-04-19] MEDS: METOPROLOL TAR 50 MG TAB PO SCH ×2 (08:46→20:40)
[2021-04-19] MEDS: NYSTATIN 500,000 UNIT/5 ML UDC PO SCH ×4 (08:51→20:54)
--- NOTE | 2021-04-19 11:37 | RAD REPORT ---
EXAM DESCRIPTION: US - Extremity Venous Uni Ltd - 04/19/2021 11:32 am CLINICAL HISTORY: Lower extremity edema Leg swelling and edema. COMPARISON: Extremity Venous Uni Ltd dated 04/15/2021 FINDINGS: Right lower extremity venous system was interrogated with Doppler technique. Normal flow, compressibility and augmentation was noted. There is no DVT present. IMPRESSION: No evidence of right lower extremity deep venous thrombosis.
--- NOTE | 2021-04-19 12:47 | RAD REPORT ---
EXAM DESCRIPTION: RAD - Barium Swallow Modified - 04/19/2021 12:38 pm CLINICAL HISTORY: Progressive dysphagia COMPARISON: None. TECHNIQUE: The patient was given liquid, semi-solid and solid forms of barium. Lateral view fluorosc opic imaging was performed in conjunction with speech pathology service. FINDINGS: Cineloop acquisitions: 22 Fluoro time: 1 minutes 43 seconds laryngeal penetration cleared with thin liquid via cup in an attempt to reduce/clear pudding residues in valleculae and pyriform sinuses pharyngeal residue in vallecular: mild with thin via tsp, severe with nectar, honey, thin by cup and pudding. pyriform: moderate with thin via tsp, severe with thin by cup, nectar,honey, pudding. disease management nurse ior wall: mild with thin via tsp, severe with thin by cup, nectar, honey, pudding decreased ues opening, severe narrowing @c6, moderate esophageal stasis/retention and dysmotility wit h thin pt refused chino cracker trials IMPRESSION: Modified barium swallow as summarized above and fully detailed on speech pathology tyree brar
[2021-04-19] MEDS: MORPHINE 2 MG/ML SYR IV PRN (16:15)
[2021-04-19] MEDS: EPOETIN 4,000 UNIT/ML VIAL SQ SCH (17:46)
--- NOTE | 2021-04-19 19:47 | P.PN ---
Date of Service: 04/19/21 Vital Signs Temp Pulse Resp BP Pulse Ox 97.1 F 103 H 18 118/75 97 04/19/21 16:00 04/19/21 16:00 04/19/21 16:15 04/19/21 16:00 04/19/21 16:15 Medications Acetaminophen (Acetaminophen 500 Mg Tab) 500 mg PO Q6H PRN PRN Reason: pain/fever Last Admin: 04/17/21 21:43 Dose: 500 mg Documented by: Calcitriol (Calcitrol 0.25 Mcg Cap) 0.5 mcg PO DAILY [facility] Last Admin: 04/19/21 08:49 Dose: Not Given Documented by: Cholecalciferol (Vitamin D 5,000 Unit Cap) 5,000 unit PO DAILY [facility] Last Admin: 04/19/21 08:49 Dose: Not Given Documented by: Epoetin Obey (Epoetin 4,000 Unit/Ml Vial) 4,000 unit SQ M,W,F [facility] Last Admin: 04/19/21 17:46 Dose: 4,000 unit Documented by: Heparin Sodium (Porcine) (Heparin 1,000 Unit/Ml Vial) 6,000 unit IV EVERY HD PRN PRN Reason: AFTER EACH Last Admin: 04/18/21 18:55 Dose: 6,000 unit Documented by: Home Med (Pregabalin [Lyrica]) 25 mg PO BID [facility] Last Admin: 04/19/21 07:59 Dose: Not Given Documented by: Albumin Human (Albumin 25%) 50 mls @ 100 mls/hr IV EVERY HD [facility] Last Admin: 04/17/21 20:00 Dose: 50 mls Documented by: Albumin Human (Albumin 25% 25 Gm) 100 mls @ 200 mls/hr IV EVERY HD [facility] Last Admin: 04/18/21 15:47 Dose: 100 mls Documented by: L-Arginine/L-Glutamine/HMB (Suman Packet) 1 pkt PO BID [facility] Last Admin: 04/19/21 08:48 Dose: Not Given Documented by: Mannitol (Mannitol 25% 12.5 Gm/50 Ml Vial) 12.5 gm IV EVERY HD PRN PRN Reason: FOR BP SUPPORT AT HD Metoprolol Tartrate (Metoprolol Tar 50 Mg Tab) 25 mg PO BID [facility] Last Admin: 04/19/21 08:46 Dose: Not Given Documented by: Midodrine (Midodrine Hcl 5 Mg Tablet) 15 mg PO EVERY HD PRN PRN Reason: Hypotension Last Admin: 04/18/21 14:05 Dose: 15 mg Documented by: Morphine Sulfate (Morphine 2 Mg/Ml Syr) 2 mg IV Q4H PRN PRN Reason: Pain scale 5-7 (Moderate) Last Admin: 04/19/21 16:15 Dose: 2 mg Documented by: Nystatin (Nystatin 500,000 Unit/5 Ml Udc) 500,000 unit PO QID [facility] Last Admin: 04/19/21 16:45 Dose: Not Given Documented by: Ondansetron HCl (Ondansetron 4 Mg/2 Ml Vial) 4 mg IV Q4H PRN PRN Reason: NAUSEA / VOMITING Sevelamer Carbonate (Sevelamer Carbonate 800 Mg Tablet) 800 mg PO TIDWM [facility] Last Admin: 04/19/21 16:45 Dose: Not Given Documented by: Sodium Chloride (Flush Normal Saline 10 Ml) 10 ml IV BID [facility] Last Admin: 04/19/21 08:00 Dose: 10 ml Documented by: Assessment/ Plan: Nephrology Reports difficulty with swallowing Diffuse persistent weakness with associated edema No acute events overnight Vitals, medications, blood work and imaging reviewed in the chart. General: Oriented x3, Cooperative HEENT: Atraumatic Neck: Supple Respiratory: Clear to auscultation bilaterally Cardiovascular: Regular rate/rhythm, Edema Gastrointestinal: Soft and benign, Non-distended Musculoskeletal: No clubbing, No contractures Integumentary: No rashes, No cyanosis Neurological: Normal speech Blood work reviewed in the chart. Imagings Data: EXAM DESCRIPTION: RAD - Chest Single View - 04/17/2021 1:24 pm CLINICAL HISTORY: weakness Chest pain. COMPARISON: Chest Single View dated 11/05/2020; Chest Single View dated 08/09/2020; Chest Single View dated 08/07/2020; Chest Single View dated 06/20/2020 FINDINGS: Portable technique limits examination quality. Mild interstitial pulmonary edema seen. Small - moderate left pleural effusion is noted. The heart is moderately enlarged. Sided venous catheter tip in the SV C. Conclusions/Impression: ESRD -Acute HD ordered Hyponatremia -Acute HD Diastolic CHF, A/C -Acute HD with UF -Give Albumin and Midodrine with HD Moderate malnutrition -Encourage nutrition -Start Prednisone Anemia in CKD -Continue Retacrit TIW LEA/ Secondary HyperPTH -Continue Vitamin D -Continue Renvela Dysphagia -Swallow study ordered Diffuse, chronic pain -Start Celebrex BID to improve chronic inflammation -Start Prednisone for inflammation and anorexia -Start Pepcid qhs
[2021-04-19] MEDS ORDERED: predniSONE 20 MG TAB PO ONE (19:49)
[2021-04-19] MEDS ORDERED: LORazepam 2 MG/ML VIAL IV PRN (19:53)
[2021-04-19] MEDS: FAMOTIDINE 20 MG/2 ML VIAL IV SCH (20:35)
[2021-04-19] MEDS: CELECOXIB 100 MG CAPSULE PO SCH (20:41)
[2021-04-20 06:17] LABS: Albumin 2.5 g/dL (3.4-5.0); Protein, Total 8.6 g/dL (6.4-8.2)
[2021-04-20] MEDS: CELECOXIB 100 MG CAPSULE PO SCH ×2 (08:00→16:50)
[2021-04-20] MEDS: Pregabalin [Lyrica] 25 MG Capsule PO SCH ×2 (09:00→20:40)
[2021-04-20] MEDS: METOPROLOL TAR 50 MG TAB PO SCH ×2 (09:00→20:37)
[2021-04-20] MEDS: NYSTATIN 500,000 UNIT/5 ML UDC PO SCH ×4 (09:56→20:29)
[2021-04-20] MEDS: JUVEN PACKET PO SCH ×2 (09:56→20:36)
[2021-04-20] MEDS: predniSONE 10 MG TAB PO SCH (09:57)
[2021-04-20] MEDS: CALCITROL 0.25 MCG CAP PO SCH (09:57)
[2021-04-20] MEDS: VITAMIN D 5,000 UNIT CAP PO SCH (09:57)
[2021-04-20] MEDS: SEVELAMER CARBONATE 800 MG TABLET PO SCH ×3 (09:57→16:49)
--- NOTE | 2021-04-20 16:39 | PN ---
Date of Progress Note: 04/20/2021 Subjective: The patient is seen at the bedside. The patient's dialysis yesterday was terminated ear ly secondary to acute lower extremity pain. Workup is being undertaken by primary team. She is currently at bedside with her . Does not complain of any pain at this time. Objective: Vital Signs: Blood pressure 113/72, pulse 92, afebrile. General: No acute distress. Heart: Irregularly irregular. No murmurs, rubs, gallops. Lungs: Grossly clear. Abdomen: Soft, nontender. Extremities: No edema. Laboratory Data: Hemoglobin and hematocrit from the showed 9.5 and 28.2. Serum chemistry from today shows sodium 135, potassium 5, CO2 23, BUN and creatinine 38/2.8, and calcium of 10. Impression: 1.End-stage renal disease, on hemodialysis. 2.Failure to thrive. 3.Hyponatremia. 4.Diastolic congestive heart failure. 5.Anemia in the setting of chronic kidney disease. 6.Dysphagia. Plan: The patient will receive dialysis today with albumin and midodrine support. Continue workup f or dysphagia and continue workup per primary team. Continue the patient on appropriate renal diet. Continue SID for anemia. SE/MODL Voice ID: [id number] Report ID: [id number]
[2021-04-20] MEDS: FAMOTIDINE 20 MG/2 ML VIAL IV SCH (20:29)
[2021-04-20] MEDS: MIDODRINE HCL 5 MG TABLET PO PRN (20:30)
[2021-04-20] MEDS: MORPHINE 2 MG/ML SYR IV PRN (21:26)
[2021-04-20] MEDS: ACETAMINOPHEN 500 MG TAB PO PRN (22:29)
[2021-04-21] MEDS: CELECOXIB 100 MG CAPSULE PO SCH ×2 (08:00→17:00)
[2021-04-21] MEDS: Pregabalin [Lyrica] 25 MG Capsule PO SCH ×2 (09:00→21:00)
[2021-04-21] MEDS: JUVEN PACKET PO SCH ×2 (09:00→21:00)
[2021-04-21] MEDS: NYSTATIN 500,000 UNIT/5 ML UDC PO SCH ×4 (09:00→21:11)
[2021-04-21] MEDS: ACETAMINOPHEN 500 MG TAB PO PRN (10:01)
[2021-04-21] MEDS: SEVELAMER CARBONATE 800 MG TABLET PO SCH ×3 (10:06→18:48)
[2021-04-21] MEDS: METOPROLOL TAR 50 MG TAB PO SCH ×2 (10:06→21:00)
[2021-04-21] MEDS: VITAMIN D 5,000 UNIT CAP PO SCH (10:07)
[2021-04-21] MEDS: predniSONE 10 MG TAB PO SCH (10:07)
[2021-04-21] MEDS: CALCITROL 0.25 MCG CAP PO SCH (10:07)
[2021-04-21] MEDS ORDERED: HYDROCORTISONE SUC 100 MG INJ IV ONE (20:07)
[2021-04-21] MEDS: FAMOTIDINE 20 MG/2 ML VIAL IV SCH (21:11)
--- NOTE | 2021-04-22 00:56 | P.PN ---
Date of Service: 04/19/21 Subjective Patient still with generalized weakness. Strength is very diminished. Physical therapy evaluation appreciated. Review of Systems 10-point ROS is otherwise unremarkable Physical Examination - Vital Signs Reviewed - Physical Exam General: Alert, In no apparent distress Respiratory: Clear to auscultation bilaterally, Normal air movement Cardiovascular: Regular rate/rhythm, Normal S1 S2 Gastrointestinal: Normal bowel sounds, No tenderness Neurological: Normal speech, Normal tone, flat affect; significant diminished strength 4-/5 Assessment & Plan - Problems (Diagnosis) (1) Generalized weakness Current Visit: Yes Status: Acute (2) Myopathy Current Visit: Yes Status: Acute (3) Atrial fibrillation Current Visit: No Status: Acute (4) ESRD (end stage renal disease) Current Visit: No Status: Acute (5) HTN (hypertension) Current Visit: No Status: Acute (6) Hyponatremia Current Visit: No Status: Acute (7) Neuropathy of both upper extremities Current Visit: No Status: Acute - Plan Plan: 1. Hemodialysis per Nephrology 2. Physical therapy evaluation 3. Myopathy workup unremarkable. Sed rate is negative. Resolved thyroid studies were normal. CPK and aldolase are unremarkable. Patient with hypoalbuminemia with 3rd spacing. Nutritional status is very poor. 4. Strict blood pressure and blood sugar control 5. Case management consultation for [facility] placement; patient is not able to ambulate at this time and is not able to physically get her to a nursing facility. 6. Doppler of the right lower extremity. Left lower extremity venous Doppler was negative 7. GI and DVT prophylaxis - Advance Directives Does patient have a Living Will: No Does patient have a Durable POA for Healthcare: No - Code Status/Comfort Care Code Status: Full Code
--- NOTE | 2021-04-22 01:18 | P.PN ---
Date of Service: 04/20/21 Subjective Spoke with and he feels like his has given up. Patient really not participating much and not eating very much. She started screaming in pain during dialysis. Daughter had to come and be with her. Her long-term prognosis remains very poor. Review of Systems 10-point ROS is otherwise unremarkable Physical Examination - Vital Signs Reviewed - Physical Exam General: Alert, In no apparent distress Respiratory: Clear to auscultation bilaterally, Normal air movement Cardiovascular: Regular rate/rhythm, Normal S1 S2 Gastrointestinal: Normal bowel sounds, No tenderness Neurological: Normal speech, Normal tone, flat affect; significant diminished strength 4-/5 Extremity: Bilateral lower extremity edema Assessment & Plan - Problems (Diagnosis) (1) Generalized weakness Current Visit: Yes Status: Acute (2) Myopathy Current Visit: Yes Status: Acute (3) Atrial fibrillation Current Visit: No Status: Chronic (4) ESRD (end stage renal disease) Current Visit: No Status: Chronic (5) HTN (hypertension) Current Visit: No Status: Chronic (6) Hyponatremia Current Visit: No Status: Chronic (7) Neuropathy of both upper extremities/bilateral lower extremity edema Current Visit: No Status: Chronic - Plan Plan: 1. Hemodialysis per Nephrology; patient not able to complete hemodialysis because of pain. 2. Physical therapy evaluation; patient not really doing much with nursing staff 3. Myopathy workup unremarkable. Sed rate is negative. Resolved thyroid studies were normal. CPK and aldolase are unremarkable. Patient with hypoalbuminemia with 3rd spacing. Nutritional status is very poor. Patient looks to be very unmotivated to eat or to do any kind of therapy. 4. Strict blood pressure and blood sugar control 5. Case management consultation for alf facility placement; patient is not able to ambulate at this time and is not able to physically get her to a nursing facility. Family coming from out of town and they want to discuss with the social workers with other plan of care can be arranged. She is requesting to go home and if that was the case then she would probably need hospice care. 6. Venous Doppler negative for DVT 7. GI and DVT prophylaxis - Advance Directives Does patient have a Living Will: No Does patient have a Durable POA for Healthcare: No - Code Status/Comfort Care Code Status: Full Code
--- NOTE | 2021-04-22 01:27 | P.PN ---
Date of Service: 04/21/21 Subjective Patient is still doing poorly. She sat up for a little while and got really weak. I gave her a Nepro to drink just to get her caloric intake increased but she drank 1 sip and then quit. She did 1 8 eat or drink any more. Patient's daughter states that patient's sister will be here tomorrow. They want immune with the social media marketing analyst regarding future plan of care. Patient may benefit from hospice care (Progress note from 04/20): Spoke with and he feels like his has given up. Patient really not participating much and not eating very much. She started screaming in pain during dialysis. Daughter had to come and be with her. Her long-term prognosis remains very poor. Review of Systems 10-point ROS is otherwise unremarkable Physical Examination - Vital Signs Reviewed - Physical Exam General: Alert, In no apparent distress Respiratory: Clear to auscultation bilaterally, Normal air movement Cardiovascular: Regular rate/rhythm, Normal S1 S2 Gastrointestinal: Normal bowel sounds, No tenderness Neurological: Normal speech, Normal tone, flat affect; significant diminished strength 4-/5 Extremity: Bilateral lower extremity edema Assessment & Plan - Problems (Diagnosis) (1) Generalized weakness Current Visit: Yes Status: Acute (2) Myopathy Current Visit: Yes Status: Acute (3) Atrial fibrillation Current Visit: No Status: Chronic (4) ESRD (end stage renal disease) Current Visit: No Status: Chronic (5) HTN (hypertension) Current Visit: No Status: Chronic (6) Hyponatremia Current Visit: No Status: Chronic (7) Neuropathy of both upper extremities/bilateral lower extremity edema Current Visit: No Status: Chronic - Plan Plan: 1. Resume hemodialysis on Thursday 2. Physical therapy evaluation; patient not really doing much with nursing staff; prognosis is poor S patient is not eating much and not doing anything physically. Significant muscular atrophy with malnourished min and 3rd spacing of fluids. 3. Myopathy workup unremarkable. Sed rate is negative. Resolved thyroid studies were normal. CPK and aldolase are unremarkable. Patient with hypoalbuminemia with 3rd spacing. Nutritional status is very poor. Patient looks to be very unmotivated to eat or to do any kind of therapy. 4. Strict blood pressure and blood sugar control 5. [facility]; patient is not able to ambulate at this time and is not able to physically get her to a nursing facility. Family coming from out of town and they want to discuss with the social workers with other plan of care can be arranged. Patient's sister who was a nurse will be here tomorrow. Patient's daughter will be here along with her who tends to be with her at bedside throughout the day. She is requesting to go home and if that was the case then she would probably need hospice care. 6. Venous Doppler negative for DVT 7. GI and DVT prophylaxis - Advance Directives Does patient have a Living Will: No Does patient have a Durable POA for Healthcare: No - Code Status/Comfort Care Code Status: Full Code
--- NOTE | 2021-04-22 05:55 | P.PN ---
Subjective Date of Service: 04/22/21 Chief Complaint: Generalized weakness; bilateral lower extremity edema Subjective: Other (Patient appears malnourished. Patient alert cooperative.) Physical Examination - Vital Signs Temperature: 97.1 F Blood Pressure: 108/69 Pulse: 85 Respirations: 18 Pulse Ox (%): 99 - Studies Medications List Reviewed: Yes Assessment & Plan Discharge Plan: Other (correction facility) Plan to discharge in: 48 Hours Physician Review Additional Text: Physical exam General: Patient alert, cooperative. Patient appears malnourished and cachectic Heart: Regular rate and rhythm Lungs: Clear to auscultation GI: Soft, nontender Extremities: Muscle wasting to the upper and lower extremities. Impression: Generalized weakness End-stage renal disease on hemodialysis Hypertension Severe protein malnutrition Hyponatremia Neuropathy of the extremities Depression Plan: Generalized weakness: Spoke with hospitalist yesterday. Myopathy work-up unremarkable. Sed rate negative. Thyroid levels unremarkable. Patient with low albumin and third spacing. Nutritional status very poor. Patient remains on midodrine. Patient unmotivated. Spoke with daughter. Daughter suspects patient with severe depression. Other family members to come and evaluate patient. Need to consider skilled placement but patient will need to participate with physical therapy in order for this to be approved. Other options include hospice if she refuses future dialysis. Will discuss with nephrology and family. End-stage renal disease on hemodialysis: Continue with dialysis will discuss with nephrology about plan of care. Hypertension: Continue with medication. Will monitor and adjust appropriately. Patient on metoprolol but also on midodrine. Severe protein malnutrition: Dietary consulted to address daily needs. P rednisone added. Hyponatremia: Continue with nephrology recommendation Neuropathy of the extremities: Continue with medication Depression: We will discuss with nephrology about the possibility of adding medication CODE STATUS: Patient full code DVT prophylaxis: Heparin Advance care plannin minutes Will discuss with family this morning about plan of care. This will include skilled placement versus hospice versus other. Time Spent Managing Pts Care (In Minutes): 55
[2021-04-22] MEDS: SEVELAMER CARBONATE 800 MG TABLET PO SCH ×3 (08:00→17:00)
[2021-04-22] MEDS: CELECOXIB 100 MG CAPSULE PO SCH ×2 (08:00→17:00)
[2021-04-22] MEDS: CALCITROL 0.25 MCG CAP PO SCH (09:00)
[2021-04-22] MEDS: JUVEN PACKET PO SCH ×2 (09:00→21:00)
[2021-04-22] MEDS: Pregabalin [Lyrica] 25 MG Capsule PO SCH ×2 (09:00→21:00)
[2021-04-22] MEDS: predniSONE 10 MG TAB PO SCH (09:00)
[2021-04-22] MEDS: NYSTATIN 500,000 UNIT/5 ML UDC PO SCH ×4 (09:00→21:00)
[2021-04-22] MEDS: VITAMIN D 5,000 UNIT CAP PO SCH (09:00)
[2021-04-22] MEDS: METOPROLOL TAR 50 MG TAB PO SCH ×2 (09:00→21:00)
--- NOTE | 2021-04-22 12:36 | PN ---
Date of Progress Note: 04/22/2021 Subjective: The patient currently looks stable. She is lying on the bed, alert, able to answer some questions, but speaks softly. She says she is not having any breathing difficulty. Currently O2 sa ts are 99% on room air. Her blood pressures are slightly on the lower side, but stable between 100-1 20. Last blood pressure was 108 systolic over 69 diastolic, pulse about 85, respirations around 14 o n my exam. She is afebrile. Her lungs are clear anteriorly. Abdomen is soft. Extremities do revea l significant edema bilaterally about positive 2. She does have some mild bruising on her arms and l egs, perhaps from rubbing against the bedside rails and also from her IVs. The patient denies any di scomfort currently. She does nod her head when we talked about hospice. She states she has not had dialysis for a couple of days. She understands next dialysis treatment is tomorrow. She is not able to answer a lot of questions. She does not seem to be a good historian. She did tell me that she h ad considered hospice. She mentioned there was a [id number] who is a nurse who will be coming by today or later and then they will discuss things further. She is agreeable to getting dialysis tomor row. She denies any pain right now. I also discussed the case with Dr. Damon who knows the patien t better. Laboratory Data: WBC count 7.8, hemoglobin 9.5, hematocrit 28.2, platelet count of 207. Sodium 135, potassium 5.0, bicarb 23, BUN 38, creatinine 2.8, AST 32, ALT 22, alkaline phosphatase 115, albumin level of 2.5, TSH 4.38. B12 level 941. Cortisol level 30. Assessment And Plan: The patient is a 75-year-old female with end-stage renal disease, failure to th rive. The patient has not been eating and drinking well. Her albumin level is in the 2 range. She seems to be slightly depressed, on SSRI, but also very cachectic, not eating well, perhaps having xiomy e difficulty with her appetite and eating. She has been dialyzed even more aggressively recently wit h daily dialysis and despite that, the patient's condition has not much improved. She is also compla ining of lot of pain, was unable to complete some of her dialysis treatments due to pain in the legs and general aches. The patient has now been started on Celebrex. She has minimal urine output and a lso been started on prednisone by Dr. Damon and I agree with this plan as this may help her with th e pain, which is at this point significant and the patient does seem to have some improvement today. She is not complaining of pain currently. Her volume status seems to be reasonable, even though she has significant edema in the lower extremities. Her lungs seem mainly clear and her breathing seems stable with rest. She is denying any difficulty with breathing. Her electrolytes seem reasonable f rom April 20 and she has had a dialysis treatment since then. Plan is for dialysis again tomorrow. I have put in the dialysis orders for tomorrow. I have discussed the case with dialysis nurse, Kunal, for treatment tomorrow. Monitor blood pressure closely, continue to encourage p.o. intake. The karyn ent is on Celexa. If tolerated well, may need to be increased in the future to see if the patient ca n improve her depression further. The patient seems to answer some questions. I do not know if in g ood detail her mental capacity and her cognition, but the patient does say that she had considered ho spice and will be discussing further with her family, but does not want hospice right now. Agrees to dialysis tomorrow, orders for which I have placed. /QUIANA Voice ID: [id number] Report ID: [id number]
[2021-04-22] MEDS ORDERED: TRAMADOL HCL 50 MG TAB PO PRN (15:55)
[2021-04-22] MEDS: ACETAMINOPHEN 500 MG TAB PO PRN (16:03)
[2021-04-22] MEDS ORDERED: D50W 25 GM/50 ML SYRINGE IV ONE ×4 (16:21→22:31)
[2021-04-22] MEDS: EPOETIN 4,000 UNIT/ML VIAL SQ SCH (17:33)
[2021-04-22 19:37] LABS: HBsAG Nonreactive (Nonreactive)
[2021-04-22] MEDS ORDERED: DEXTROSE 10%-WATER 500 ML IV SCH ×2 (19:45→22:45)
[2021-04-22] MEDS ORDERED: DEXTROSE 10%-WATER 500 ML IV ONE (20:08)
[2021-04-22] MEDS: ENSURE PLANT-BASED PROTEIN VANILLA 330 ML CAN PO SCH (21:00)
[2021-04-22] MEDS: FAMOTIDINE 20 MG/2 ML VIAL IV SCH (21:22)
[2021-04-23] MEDS: DEXTROSE 10%-WATER 500 ML IV SCH ×4 (01:30→17:50)
--- NOTE | 2021-04-23 05:50 | P.PN ---
Subjective Date of Service: 04/23/21 Chief Complaint: Generalized weakness; bilateral lower extremity edema Subjective: Other (Confused this am.) Physical Examination - Vital Signs Temperature: 97 F Blood Pressure: 86/50 Pulse: 100 Respirations: 17 Pulse Ox (%): 99 - Studies Medications List Reviewed: Yes Assessment & Plan Discharge Plan: Other (care home facility) Plan to discharge in: 24 Hours Physician Review Additional Text: Physical exam General: Patient confused this morning. Patient appears malnourished and cachectic. Heart: Regular rate and rhythm Lungs: Clear to auscultation GI: Soft, nontender Extremities: Muscle wasting to the upper and lower extremities. Muscle wasting to the torso. Edema to the lower extremities noted Impression: Confusion, generalized weakness with hypoglycemia likely from failure to thrive End-stage renal disease on hemodialysis Hypertension with hypotension Severe protein malnutrition Hyponatremia Neuropathy of the extremities Depression Plan: Confusion, generalized weakness with hypoglycemia likely from failure to thrive: Patient was started on D10 to help with hypoglycemia. D50 given this morning. Will monitor blood sugars closely. If blood sugars remain low will need to consider other options. Encourage oral intake. Dietary consulted to help with nutrition. Myopathy work-up unremarkable. Blood pressure also low. Case discussed with nephrology. Will add midodrine. Patient to have dialysis today. Patient with severe depression. Celexa added yesterday. We will continue to monitor closely. Electrolytes to be followed. Had a long discussion with patient, family yesterday. Options still include skilled placement versus hosp ice. Will rediscuss plan of care with family in detail today. Patient has been approved for skilled placement but due to low blood pressure and hypoglycemia this will need to be on hold. End-stage renal disease on hemodialysis: Patient to have dialysis today. Case discussed with nephrology concerning plan of care. Nephrology recommends to continue current treatment plan but will wait on family decision on whether hospice to be considered. Hypertension with hypotension: Continue with medication. Will monitor and adjust appropriately. Will discontinue metoprolol. Midodrine added. Severe protein malnutrition: We will increase prednisone to 20 mg daily. Encourage oral intake. Patient on D10. Will monitor oral intake closely. Patient does not desire PEG tube. Hyponatremia: Continue with nephrology recommendation Neuropathy of the extremities: Continue with medication Depression: Celexa started. CODE STATUS: Patient remains full code but will readdress this in detail. DVT prophylaxis: Heparin Advance care plannin minutes Discussed at length with family yesterday. Still need to consider hospice versus skilled placement versus other. Will rediscuss again today. Time Spent Managing Pts Care (In Minutes): 55
[2021-04-23] MEDS: SEVELAMER CARBONATE 800 MG TABLET PO SCH ×3 (08:00→16:20)
[2021-04-23] MEDS: CELECOXIB 100 MG CAPSULE PO SCH ×2 (08:00→16:21)
--- NOTE | 2021-04-23 08:08 | ECHO ---
HEIGHT: 5 ft 6 in WEIGHT: 159 lb 12.8 oz DATE OF STUDY: 04/22/[address]: Marck Edward MD 2-DIMENSIONAL: YES M.MODE: YES DOPPLER: YES COLOR FLOW: YES TDS: NO PORTABLE: NO DEFINITY: NO BUBBLE STUDY: NO DIAGNOSIS: VOLUME OVERLOAD CARDIAC HISTORY: CATHERIZATION: SURGERY: PROSTHETIC VALVE: PACEMAKER: MEASUREMENTS (cm) DIASTOLIC (NORMALS) SYSTOLIC (NORMALS) IVSd 1.0 (0.6-1.2) LA Diam 4.0 (1.9-4.0) LVEF 15-20% LVIDd 5.2 (3.5-5.7) LVIDs 4.7 (2.0-3.5) %FS 10% LVPWd 1.1 (0.6-1.2) Ao Diam 3.0 (2.0-3.7) 2 DIMENSIONAL ASSESSMENT: RIGHT ATRIUM: ENLARGED LEFT ATRIUM: ENLARGED RIGHT VENTRICLE: MILDLY DEPRESSED LEFT VENTRICLE: DEPRESSED FUNCTION TRICUSPID VALVE: SEVERE TRICUSPID REGURGITATION MITRAL VALVE: SEVERE MITRAL REGURGITATION PULMONIC VALVE: MILD PULMONIC REGURGITATION AORTIC VALVE: MILD AORTIC REGURGITATION PERICARDIAL EFFUSION: MILD AORTIC ROOT: NORMAL LEFT VENTRICULAR WALL MOTION: SEVERE GLOBAL HYPOKINESIS. DOPPLER/COLOR FLOW: SEE BELOW. COMMENTS: SEVERELY DEPRESSED LEFT VENTRICULAR EJECTION FRACTION 15-20% WITH SEVERE GLOBAL HYPOKINESIS. MODERATE RIGHT VENTRICULAR DYSFUNCTION. BIATRIAL ENLARGEMENT. SEVERE TRICUSPID REGURGITATION. MODERATE TO SEVERE MITRAL REGURGITATION. MILD PULMONIC AND AORTIC REGURGITATION. LARGE PLEURAL EFFUSION. SMALL PERICARDIAL EFFUSION. SEVERE PULMONARY HYPERTENSION, RIGHT VENTRICULAR SYSTOLIC PRESSURE GREATER THAN 60mmHg. SEVERE DIASTOLIC DYSFUNCTION. TECHNOLOGIST: MARY AVENDAÑO
[2021-04-23 08:10] LABS: Absolute Lymphocytes (CBC) 0.3 K/uL (0.7-4.9); Basophils % 0.4 % (0-1.3); Hematocrit 32.9 % (36.0-45.0); Lymphocytes % 2.8 % (15.3-44.8); MPV 9.7 fL (7.6-11.3); RBC Red Blood Cell Count 3.25 M/uL (3.86-4.86)
[2021-04-23 08:14] LABS: Magnesium 2.2 mg/dL (1.8-2.4)
[2021-04-23 08:19] LABS: Potassium 5.6 mmol/L (3.5-5.1)
[2021-04-23] MEDS ORDERED: D50W 25 GM/50 ML SYRINGE IV ONE ×2 (08:25→09:00)
[2021-04-23] MEDS: MIDODRINE HCL 5 MG TABLET PO SCH ×2 (08:31→13:36)
[2021-04-23] MEDS ORDERED: D50W 50 ML IV ONE ×3 (08:49→16:39)
[2021-04-23] MEDS: CALCITROL 0.25 MCG CAP PO SCH (09:00)
[2021-04-23] MEDS: JUVEN PACKET PO SCH (09:00)
[2021-04-23] MEDS ORDERED: CITALOPRAM 10 MG TABLET PO SCH (09:00)
[2021-04-23] MEDS: Pregabalin [Lyrica] 25 MG Capsule PO SCH (09:00)
[2021-04-23] MEDS: ENSURE PLANT-BASED PROTEIN VANILLA 330 ML CAN PO SCH (09:00)
[2021-04-23] MEDS ORDERED: MIDODRINE HCL 5 MG TABLET PO SCH (09:00)
[2021-04-23] MEDS: NYSTATIN 500,000 UNIT/5 ML UDC PO SCH ×3 (09:00→16:20)
[2021-04-23] MEDS ORDERED: predniSONE 20 MG TAB PO SCH (09:00)
[2021-04-23] MEDS: VITAMIN D 5,000 UNIT CAP PO SCH (09:00)
[2021-04-23] MEDS: MIDODRINE HCL 5 MG TABLET PO PRN (10:44)
[2021-04-23] MEDS: ALBUMIN HUMAN 25% 100 ML IV SCH (11:30)
[2021-04-23] MEDS: ALBUMIN HUMAN 25% 50 ML IV SCH (12:45)
[2021-04-23 12:57] LABS: Anisocytosis SLIGHT; Blood Morphology Comment NOTED (NOT SEEN); Macrocytosis SLIGHT; Platelet Estimate DECR
[2021-04-23 14:36] VITALS: O2SAT 100
[2021-04-23] MEDS: D50W 25 GM/50 ML VIAL IV ONE ×2 (16:21→16:32)
[2021-04-23 16:29] VITALS: BP 91/45; TEMP 97.5
[2021-04-23] MEDS ORDERED: MORPHINE 2 MG/ML SYR IV PRN (17:24)
[2021-04-23] MEDS ORDERED: D50W 25 GM/50 ML VIAL IV PRN (17:35)
[2021-04-23] MEDS ORDERED: D50W 25 GM/50 ML VIAL IV ONE (18:00)
--- NOTE | 2021-04-23 19:21 | P.DS ---
Admission Date: 04/17/21 Discharge Date: 04/23/21 Disposition: Discharge Condition: Reason for Admission: Generalized weakness; bilateral lower extremity edema Consultations: Nephrology Dr. Damon Procedures: Chest x-ray COMPARISON: Chest Single View dated 11/05/2020; Chest Single View dated 08/09/2020; Chest Single View dated 08/07/2020; Chest Single View dated 06/20/2020 FINDINGS: Portable technique limits examination quality. Mild interstitial pulmonary edema seen. Small - moderate left pleural effusion is noted. The heart is moderately enlarged. Sided venous catheter tip in the SVC. MBS laryngeal penetration cleared with thin liquid via cup in an attempt to reduce/clear pudding residues in valleculae and pyriform sinuses pharyngeal residue in vallecular: mild with thin via tsp, severe with nectar, honey, thin by cup and pudding. pyriform: moderate with thin via tsp, severe with thin by cup, nectar,honey, pudding. posterior wall: mild with thin via tsp, severe with thin by cup, nectar, honey, pudding decreased ues opening, severe narrowing @c6, moderate esophageal stasis/retention and dysmotility with thin pt refused chino cracker trials IMPRESSION: Modified barium swallow as summarized above and fully detailed on speech pathology report. Venous ultrasound FINDINGS: Right lower extremity venous system was interrogated with Doppler technique. Normal flow, compressibility and augmentation was noted. There is no DVT present. IMPRESSION: No evidence of right lower extremity deep venous thrombosis. Echocardiogram SEVERELY DEPRESSED LEFT VENTRICULAR EJECTION FRACTION 15-20% WITH SEVERE GLOBAL HYPOKINESIS. MODERATE RIGHT VENTRICULAR DYSFUNCTION. BIATRIAL ENLARGEMENT. SEVERE TRICUSPID REGURGITATION. MODERATE TO SEVERE MITRAL REGURGITATION. MILD PULMONIC AND AORTIC REGURGITATION. LARGE PLEURAL EFFUSION. SMALL PERICARDIAL EFFUSION. SEVERE PULMONARY HYPERTENSION, RIGHT VENTRICULAR SYSTOLIC PRESSURE GREATER THAN 60mmHg. SEVERE DIASTOLIC DYSFUNCTION. medical problem list Confusion, generalized weakness with hypoglycemia likely from failure to thrive End-stage renal disease on hemodialysis Hypertension with hypotension Severe protein malnutrition Hyponatremia Neuropathy of the extremities Depression Brief History of Present Illness: 75-year-old female with history of ESRD on HD, CHF presented to the emergency department with failure to thrive, generalized weakness, poor p.o. intake and was admitted for further evaluation and management Hospital Course: Patient was admitted, seen by nephrology for hemodialysis and fluid volume management in addition to assistance in management of mild hyponatremia. Patient's sodium maintained stable around 133-135 throughout hospitalization. Patient with severe weakness, malnutrition, failure to thrive. Over the course of the last 24 hr patient with significant hypoglycemia, not tolerating much food. Patient family did not want her to have a PEG tube but was amendable for Ermy attempt although this was unsuccessful. Patient was placed on d 10 in sugars restrict hourly with additional glucose given as needed. Patient family was aware of patient's condition was considering hospice, had made patient a DNR today given her clinical status. As blood sugars were running low the decision to transfer patient to the ICU for hourly glucose monitoring was made, patient was transferred to the ICU and very shortly after her arrival to the intensive care unit. She became bradycardic, hypotensive and proceeded to become asystolic. Patient had DNR in place, peacefully at 4:43 p.m. today. Family at bedside. March she rest in peace. Vital Signs/Physical Exam: Temp Pulse Resp BP Pulse Ox 97.5 F 118 H 22 H 91/45 L 94 04/23/21 16:00 04/23/21 16:00 04/23/21 16:00 04/23/21 16:00 04/23/21 16:00 General: Unresponsive HEENT: Other (Pupils fixed, dilated) Neck: Other (No palpable carotid pulse) Respiratory: Other (No spontaneous respiratory effort) Cardiovascular: Other (No audible heart sounds) Laboratory Data at Discharge: WBC 11.80 K/uL (4.3-10.9) H D 04/23/21 07:28 Hgb 10.2 g/dL (12.0-15.0) L 04/23/21 07:28 Hct 32.9 % (36.0-45.0) L D 04/23/21 07:28 Plt Count 84 K/uL (152-406) L D 04/23/21 07:28 PT 15.4 SECONDS (9.5-12.5) H 04/17/21 12:30 INR 1.34 04/17/21 12:30 Sodium 134 mmol/L (136-145) L 04/23/21 07:28 Potassium 5.6 mmol/L (3.5-5.1) H* 04/23/21 07:28 BUN 78 mg/dL (7-18) H D 04/23/21 07:28 Creatinine 3.56 mg/dL (0.55-1.3) H 04/23/21 07:28 Glucose 62 mg/dL (74-106) L 04/23/21 17:05 Uric Acid 3.5 mg/dL (2.6-6.0) 04/18/21 05:02 Phosphorus 6.2 mg/dL (2.5-4.9) H 04/18/21 05:02 Magnesium 2.2 mg/dL (1.8-2.4) 04/23/21 07:28 Total Bilirubin 1.0 mg/dL (0.2-1.0) 04/20/21 05:28 AST 32 U/L (15-37) 04/20/21 05:28 ALT 22 U/L (12-78) 04/20/21 05:28 Alkaline Phosphatase 115 U/L (45-117) 04/20/21 05:28 Home Medications: Metoprolol Tartrate 50 mg PO BID 04/18/21 Pregabalin [Lyrica] 25 mg PO BID 04/18/21 Physician Discharge Instructions: Rest in peace Followup: Socorro Mehta CONTROL OFFICER MANAGER [Primary Care Provider] - Time spent managing pt's care (in minutes): 30
[2021-04-24] MEDS ORDERED: JEVITY 1.5 CAL LIQUID 1,000 ML BOT FT SCH (09:00)
== END 2021-04-23 20:05 | disposition expired | DRG 291 ==
LOC: ER 11:07 → ERHOLD 13:48 → 2ND 17:40 → ERHOLD 04-23 18:33
PROVIDERS: ADMIT Hospitalist; ATTEND Family Medicine
PROC: 5A1D70Z Performance of Urinary Filtration, Intermittent, Less than 6 Hours Per Day (ICD-10-PCS; principal; 2021-04-17)
DX: I13.2 Hypertensive heart and chronic kidney disease with heart failure and with stage 5 chronic kidney disease, or end stage renal disease (principal); N18.6 End stage renal disease; I50.33 Acute on chronic diastolic (congestive) heart failure; E43 Unspecified severe protein-calorie malnutrition; E87.1 Hypo-osmolality and hyponatremia; N25.81 Secondary hyperparathyroidism of renal origin; D63.1 Anemia in chronic kidney disease; L89.152 Pressure ulcer of sacral region, stage 2; G72.9 Myopathy, unspecified; I48.91 Unspecified atrial fibrillation; N25.0 Renal osteodystrophy; I25.10 Atherosclerotic heart disease of native coronary artery without angina pectoris; E16.2 Hypoglycemia, unspecified; F32.9 Major depressive disorder, single episode, unspecified; I95.9 Hypotension, unspecified; G89.29 Other chronic pain; G62.9 Polyneuropathy, unspecified; R13.10 Dysphagia, unspecified; R62.7 Adult failure to thrive; R00.1 Bradycardia, unspecified; Z66 Do not resuscitate; Z88.1 Allergy status to other antibiotic agents; Z91.040 Latex allergy status; Z91.013 Allergy to seafood; Z88.8 Allergy status to other drugs, medicaments and biological substances; Z91.018 Allergy to other foods; Z99.2 Dependence on renal dialysis; Z68.25 Body mass index [BMI] 25.0-25.9, adult; Z87.891 Personal history of nicotine dependence; Z79.899 Other long term (current) drug therapy; Z96.652 Presence of left artificial knee joint; Z98.51 Tubal ligation status; Z20.822 Contact with and (suspected) exposure to COVID-19
CPT/HCPCS: 36415; 71045; 74230; 80048; 80053; 80076; 82085; 82533; 82550; 82607; 82746; 82947; 83540; 83735; 83880; 84100; 84439; 84443; 84484; 84550; 85025; 85610; 85652; 86140; 86317; 87340; 90935; 93005; 93306; 93971; 96374; 96375; 97110; 97161; 97530; 99284; 99285; J1644; J1720; J2270; J2405; J7512; J7799; P9047; Q5105; Q5106; U0003